=== PATIENT | male | born 1960 | race Caucasian/White ===

== ENCOUNTER 2017-09-26 05:45 | Day surgery (SDC) | payer SELFPAY ==
[2017-09-25 12:35] VITALS: BMI 31.1
--- NOTE | 2017-09-26 06:11 | HP ---
DATE OF SERVICE: 09/25/2017 SUBJECTIVE: Mr. Otoole is a pleasant gentleman who referred for hemoptysis and abnormal chest CT. His left hilar mass appears to have lymph nodes in his mediastinum and hilum. He is scheduled for bronchoscopy. Risks of bleeding, infection, lung collapse, likely were explained. He is not smoking or drinking at this time, but was up until the point where the hemoptysis started. PAST MEDICAL HISTORY: Unremarkable except for hypertension. He has taken no antihypertensives. SOCIAL HISTORY: She is currently not smoking or drinking. ALLERGIES: He denies having drug allergies. FAMILY HISTORY: Negative for lung disease at an early age. Positive for diabetes, hypertension, and cancer. REVIEW OF SYSTEMS: 10 point system reviewed otherwise negative. He denies weight loss. OBJECTIVE: VITAL SIGNS: His pulse 80, respiratory rate 18, his oximetry is 98. HEENT: Pupils are equal. Sclerae is anicteric. NECK: Supple along palpate any supraclavicular or cervical lymph nodes. He has very muscular neck. LUNGS: Remarkable for faint wheezes on the left. HEART: Regular rhythm. S1 and S2 are normal. ABDOMEN: Soft and nontender. EXTREMITIES: Without clubbing, cyanosis, or edema. CT of his chest and chest x-ray have been reviewed on disc films as well as reports from [facility] ([facility]). IMPRESSION: Left hilar mass, likely malignant. PLAN: Bronchoscopy with biopsies if feasible. 50 min spent on the patient at the bedside and or on the patient's floor. [facility]
[2017-09-26] MEDS ORDERED: Albuterol Sulfate 2.5 mg/3 ml Neb ONE (06:13)
[2017-09-26] MEDS ORDERED: Lidocaine 4% PF 5 ML AMP NEB SCH (06:30)
[2017-09-26] MEDS ORDERED: Sodium Chloride 0.9% 1,000 ML IV SCH (06:30)
[2017-09-26] MEDS ORDERED: Lidocaine 2% Jelly 5 ML TUBE ONE (06:49)
[2017-09-26] MEDS ORDERED: Midazolam HCl 2 mg/2 ml Vial ONE (07:30)
[2017-09-26] MEDS ORDERED: Fentanyl 100 MCG/2 ML VIAL ONE (07:30)
--- NOTE | 2017-09-26 11:57 | OP ---
PROCEDURE: Fiberoptic bronchoscopy. SEDATION: IV conscious sedation. [employer] SPECIAL AGENT: Nikko Ferguson M.D. INDICATION: Lung mass, hemoptysis. The patient was sedated with Versed 2 mg, followed by fentanyl, total 50 mcg. Once he was sedated, t he bronchoscope was introduced via his left naris, passed down to his cords. His cords moved normall y. His trachea was normal. The main bharti was wide. The right middle lobe, right lower lobe, right up per lobe were inspected first. No endobronchial lesions were seen. There was cobblestoning in the l eft, the left main stem bronchus into the left upper lobe, left lower lobe bronchus was patent, left upper lobe bronchus was remarkable for friable mass. This was brushed and biopsied multiple times an d washed. The patient tolerated the procedure well. Met with the family afterwards and answered all their questions and to follow up with me on Friday.
== END 2017-09-26 09:26 | disposition home or self-care (01) ==
LOC: SDC 05:45
PROVIDERS: ATTEND Internal Medicine Critical Care Medicine
PROC: 0BDG8ZX Extraction of Left Upper Lung Lobe, Via Natural or Artificial Opening Endoscopic, Diagnostic (ICD-10-PCS; principal; 2017-09-26)
DX: R91.8 Other nonspecific abnormal finding of lung field (principal); I10 Essential (primary) hypertension; Z79.2 Long term (current) use of antibiotics; Z79.891 Long term (current) use of opiate analgesic; Z79.899 Other long term (current) drug therapy
CPT/HCPCS: 88104; 88112; 88305; 88312; 99152; 99153; J2250; J3010; J7611

== ENCOUNTER 2017-10-02 12:45 | Inpatient (IN) | payer MEDICAID, OTHER, SELFPAY ==
[2017-10-02] MEDS ORDERED: Gadobenate Dimeglumine 529 MG/1 ML (20ML VIAL) ONE (13:09)
[2017-10-02] MEDS ORDERED: ALPRAZolam 0.5 MG TAB PO PRN (14:08)
[2017-10-02 14:17] VITALS: BMI 31.1
[2017-10-02 14:34] LABS: #Basophils 0.1 thou/uL (0.0-0.2); #Eosinphils 0.1 thou/uL (0.0-0.7); #Lymphocytes 2.6 thou/uL (1.20-3.40); #Neutrophils 8.2 thou/uL (1.40-6.50); %Basophils 0.6 % (0.0-1.0); %Eosinophils 1.1 % (0.0-10.0); %Lymphocytes 21.5 % (21.0-51.0); %Monocytes 8.4 % (0.0-10.0); %Neutrophils 68.4 % (42.0-75.0); Hemoglobin 9.9 g/dL (14.0-18.0); Mean Corpuscular HGB CONC 33.7 g/dL (32.0-36.0); Mean Corpuscular Hemoglobin 30.5 pg (27.0-31.0); Mean Corpuscular Volume 90.5 fl (80.0-94.0); Mean Platelet Volume 5.8 fL (7.4-10.4); Platelet Count 470 thou/uL (130-400); RBC Distribution Width 13.8 % (11.5-14.5); Red Blood Cell (RBC) Count 3.25 mill/uL (4.70-6.10)
[2017-10-02] MEDS: Sodium Chloride 0.45% 1,000 ML IV SCH (14:38)
[2017-10-02 14:57] LABS: ALT (SGPT) 15 U/L (8-55); AST (SGOT) 14 U/L (5-34); Albumin 3.8 g/dL (3.5-5.0); Alkaline Phosphatase 78 U/L (40-150); Anion Gap 12 mmol/L (10-20); BUN (Urea Nitrogen) 16 mg/dL (8.4-25.7); Bilirubin, Total 0.3 mg/dL (0.2-1.2); Calc. Creatinine Clearance 117 mL/min (70-130); Calcium 9.4 mg/dL (7.8-10.44); Carbon Dioxide 28 mmol/L (22-29); Chloride 103 mmol/L (98-107); Estimated GFR-MDRD 74; Globulin 3.9 g/dL (2.4-3.5); Glucose 79 mg/dL (70-105); Potassium 4.5 mmol/L (3.5-5.1); Protein, Total 7.7 g/dL (6.0-8.3); Sodium 138 mmol/L (136-145)
[2017-10-02] MEDS: fentaNYL 75 mcg/hour Patch TD SCH (15:33)
--- NOTE | 2017-10-02 15:50 | MRI ---
MRI BRAIN WITH AND WITHOUT IV CONTRAST: Date: 10/02/17 HISTORY: Newly diagnosed lung cancer. Exam requested to evaluate for brain metastasis. FINDINGS: There are a few foci of T2 prolongation in the periventricular white matter consistent with chronic s mall vessel ischemic disease. No restricted diffusion is seen. No evidence of infarct, hemorrhage, ma ss, midline shift, or abnormal extra-axial fluid collections are noted. Ventricular size is appropria te and the basilar cisterns are patent. No abnormal postcontrast enhancement is seen. There is mild m ucosal disease in the paranasal sinuses. IMPRESSION: No evidence of intracranial metastatic disease. POS: [facility]
--- NOTE | 2017-10-02 16:59 | CON ---
DATE OF CONSULTATION: 10/02/2017 REASON FOR CONSULTATION: Evaluate patient for mediastinoscopy. HISTORY OF PRESENT ILLNESS: Mr. Otoole is a very pleasant gentleman who has seen Dr. Ferguson for hemopty sis. He has had a CT scan showing left hilar lung mass. He has undergone bronchoscopy and biopsy, w hich was read as minute rare highly atypical cells, most compatible with malignancy. There was no wa y for them to do molecular stains on the small amount of tissue. I have been asked to see him to per form a mediastinoscopy for diagnosis. PAST MEDICAL HISTORY: None. PAST SURGICAL HISTORY: None. CURRENT MEDICATIONS: None. ALLERGIES: None. SOCIAL HISTORY: He recently stopped smoking. He is and is here with his . REVIEW OF SYSTEMS: Ten-point review of systems performed and is negative except as above. PHYSICAL EXAMINATION: GENERAL: This is a well-developed, well-nourished man, in no acute distress. VITAL SIGNS: His temperature is 97.3, pulse 92, blood pressure 151/80. LUNGS: Clear bilaterally. HEART: Rhythm is regular. NECK: Supple without adenopathy, that is palpable. ASSESSMENT AND PLAN: This is a pleasant 57-year-old gentleman with left hilar mass with malignant di agnosis, but not enough tissue to make further assessment. I have discussed mediastinoscopy with him . He has level 4 and level 7 bilateral adenopathy, which should be accessible via mediastinoscopy. Risks and benefits have been outlined, planned for tomorrow.
[2017-10-02] MEDS ORDERED: FLU VACC QS2017-18 36 mo. & older 0.5 ML SYRINGE IM ONE (21:00)
[2017-10-02] MEDS: ALPRAZolam 0.5 MG TAB PO SCH (22:13)
[2017-10-02] MEDS: Phenergan/Codeine 10-6.25mg/5ml UDCUP PO PRN (22:14)
--- NOTE | 2017-10-03 06:01 | HP ---
HISTORY OF PRESENT ILLNESS: Please refer to my last H and P. Briefly, Mr. Otoole is a pleasant 57-year-old male who never has been to a doctor. He recently developed hemoptysis; this failed to improve with antibiotics and so he was referred. He has hilar mass. He has a left upper lobe endobronchial lesion that was biopsied. Specimens were consistent with malignancy of lung primary, but the cell type could not be ascertained per my discussion with Dr. Bass. His called today stating that he was in pain, so he is subsequently being admitted for pain control and a metastatic workup. I am very very concerned that he may have skeletal metastasis and widely metastatic non-small cell lung cancer. If he has small cell lung cancer, we may need to start treatment immediately. PAST MEDICAL HISTORY: Unremarkable. SOCIAL HISTORY: He is a smoker until a month ago. He is a nondrinker. ALLERGIES: He has no drug allergies. MEDICATIONS: Prior to admission, Phenergan with Codeine and Xanax at bedtime. FAMILY HISTORY: Negative for lung disease at an early age. REVIEW OF SYSTEMS: Otherwise negative. PHYSICAL EXAMINATION: VITAL SIGNS: Afebrile, heart rate in the 90s, respiratory rate is 15, oximetry is 97 on room air, and blood pressure 150/70 in the office. HEENT: Pupils are equal. Sclerae is anicteric. Extraocular movements are full. NECK: Supple. No lymphadenopathy. LUNGS: Clear. HEART: Regular rhythm. S1 and S2 are normal. ABDOMEN: Soft and nontender. EXTREMITIES: Without asymmetry. CT shows mediastinal lymphadenopathy. PLAN: 1. I have recommended CME. 2. MRI with and without contrast. 3. Bone scan. 4. Morphine and fentanyl for pain control. This is a 70-minute consult, greater than 50% of the time was spent on the unit in coordinating care. FRANCISCO JAVIER
[2017-10-03] MEDS ORDERED: Midazolam HCl 2 mg/2 ml Vial ONE (07:01)
[2017-10-03] MEDS ORDERED: Fentanyl 100 MCG/2 ML VIAL ONE ×2 (07:01→09:34)
[2017-10-03] MEDS ORDERED: CEFAZOLIN/Water 2 GM/20 ML SYRINGE ONE (08:19)
[2017-10-03] MEDS ORDERED: CEFAZOLIN/Water 2 GM/20 ML SYRINGE SLOW IVP SCH (09:00)
[2017-10-03] MEDS ORDERED: Promethazine HCl 25 MG/ML VIAL IM PRN (11:01)
[2017-10-03] MEDS ORDERED: Promethazine HCl 25 MG/ML VIAL SLOW IVP PRN (11:01)
[2017-10-03] MEDS ORDERED: Ondansetron HCl/PF 4 MG/2 ML Vial IVP PRN (11:01)
--- NOTE | 2017-10-03 11:48 | OP ---
DATE OF PROCEDURE: 10/03/2017 PREOPERATIVE DIAGNOSIS: Left hilar mass with mediastinal adenopathy. POSTOPERATIVE DIAGNOSIS: Left hilar mass with mediastinal adenopathy. PROCEDURE: Cervical mediastinoscopy with biopsy of hilar mass. SURGEON: Peña Delatorre M.D. ANESTHESIA: General endotracheal. ESTIMATED BLOOD LOSS: Less than 50. DESCRIPTION OF PROCEDURE: After consent was obtained, the patient was brought to the operating room and placed in the supine position on the operating room table. Appropriate anesthetic monitor was pl aced and general endotracheal anesthesia induced. Neck was extended and joints appropriately padded. The neck was prepped and draped in usual sterile fashion. Skin incision was made two fingerbreadth s above the sternal notch within a skin crease. Dissection through the platysma was obtained with el ectrocautery. Strap muscles were split vertically. Anterior tracheal fascia was incised. Finger di ssection was used to enter the mediastinum and a hard mass was encountered at the tip of my finger. The mediastinoscope was inserted and multiple biopsies of the mass were taken and sent for a routine pathologic exam. Hemostasis was ensured. Wounds were then closed in layers and Dermabond applied to the skin. The patient was awakened, extubated, and transferred to recovery room in stable condition .
[2017-10-03] MEDS: ALPRAZolam 0.5 MG TAB PO SCH ×3 (11:59→20:42)
[2017-10-03] MEDS: Enoxaparin Sodium 40 MG/0.4 ML SYRINGE SC SCH (12:01)
--- NOTE | 2017-10-03 12:49 | PRG ---
DATE OF SERVICE: 10/03/2017 Mr. Otoole was examined in the recovery room. PHYSICAL EXAMINATION: VITAL SIGNS: He has been afebrile overnight, his heart rates is in the 80s, respiratory rate 18, his oximetry is 96 on room air this morning. In the recovery room, he is on a cannula postop. LUNGS: His lungs are clear. He still groggy. Yesterday, his hemoglobin was 9.9. Hopefully this is not indicative of bone marrow infiltration with small cell cancer. I will repeat a CBC in the morning. IMPRESSION: 1. Left hilar mass with mediastinal extension malignant by bronchial biopsies, but cell type could n ot be classified. 2. Status post mediastinoscopy with good tissue obtained today. 3. Anemia, ? bone marrow infiltration with small cell lung cancer. We will await pathology. 4. Pain? bone mets, a bone scan has been ordered. He is stable to go back to a medical bed. He will be in the hospital for several more days, hopefull y we will have a tissue diagnosis by Friday.
[2017-10-03] MEDS: Sodium Chloride 0.45% 1,000 ML IV SCH (13:09)
[2017-10-03] MEDS ORDERED: Esmolol 100 MG/10 ML VIAL ONE (14:24)
[2017-10-03] MEDS ORDERED: PROPOFOL 200 MG/20 ML VIAL ONE (14:24)
[2017-10-03] MEDS ORDERED: Glycopyrrolate 0.2 MG/ML 5 ML SYRINGE ONE (14:24)
[2017-10-03] MEDS ORDERED: Lidocaine 1% PF 5 ML VIAL ONE (14:24)
[2017-10-03] MEDS: Phenergan/Codeine 10-6.25mg/5ml UDCUP PO PRN ×2 (15:15→20:42)
--- NOTE | 2017-10-03 18:53 | NM ---
BONE SCAN 10/03/16 HISTORY: Lung cancer. Evaluate for metastatic disease. TECHNIQUE: A whole body bone scan was performed after administration of 29 millicuries of technetium 99m MDP. FINDINGS: There is linear uptake along the lateral aspect of the distal femur. This is nonspecific. There is up take in the manubrium and there is uptake in two adjacent right lateral ribs in a segmental fashion. The rib uptake may be secondary to rib fractures. Soft tissue activity is unremarkable. Uptake in the shoulders and knees is likely secondary to degene rative change. IMPRESSION: 1. There is abnormal uptake in the manubrium. A CT of the chest is recommended for further evalu ation. The abnormal uptake in the ribs is likely secondary to right rib fractures. 2. There is abnormal uptake in the distal right femur. Recommend correlation with radiographs of the right femur. POS: [facility]
[2017-10-04] MEDS: Phenergan/Codeine 10-6.25mg/5ml UDCUP PO PRN ×2 (05:22→14:07)
[2017-10-04 05:31] LABS: Band 2 % (5-11); Lymphocytes 7 % (21-51); MDiff Complete? YES; Mean Corpuscular Volume 90.5 fl (80.0-94.0); Mean Platelet Volume 6.1 fL (7.4-10.4); Monocytes 1 % (0-10); Neutrophil 90 % (42-75); Platelet Count 480 thou/uL (130-400); RBC Distribution Width 13.8 % (11.5-14.5); White Blood Cell (WBC) Count 16.7 thou/uL (4.8-10.8)
[2017-10-04] MEDS: ALPRAZolam 0.5 MG TAB PO SCH ×3 (09:15→20:15)
[2017-10-04] MEDS: Enoxaparin Sodium 40 MG/0.4 ML SYRINGE SC SCH (09:15)
[2017-10-04] MEDS: Sodium Chloride 0.45% 1,000 ML IV SCH (14:26)
[2017-10-04] MEDS: Morphine 5 MG/ML SYRINGE SLOW IVP PRN ×2 (14:46→16:57)
--- NOTE | 2017-10-04 18:17 | RAD ---
TWO VIEWS OF THE CHEST 10/04/17 COMPARISON: None. HISTORY: Sharp right sided chest pain. FINDINGS: Two views of the chest show normal sized cardiomediastinal silhouette. Consolidation is seen in left upper lobe consistent with pneumonia. No pleural effusion is seen. No right sided infiltrates are pre sent. IMPRESSION: Left upper lobe pneumonia. POS: [facility]
[2017-10-04] MEDS ORDERED: Fentanyl 100 MCG/2 ML VIAL SLOW IVP PRN (19:02)
[2017-10-04] MEDS ORDERED: Lidocaine 5% Patch TD SCH (19:15)
[2017-10-04] MEDS: Amoxicillin/Potassium Clav 875 MG TAB PO SCH (20:15)
--- NOTE | 2017-10-04 21:12 | PRG ---
DATE OF SERVICE: 10/04/2017 SERVICE: Pulmonary Medicine. INTERVAL HISTORY: The patient is having severe right-sided chest wall discomfort. He can put his fi nger on where the spot is that hurts him. It sometimes feels a little bit better if he splints again st the arm on that spot. He denies any current fevers, chills, nausea or vomiting. Other than this, there has been no interval change to his condition. It seemed to start shortly after he had a showe r today. That being said, it has been throughout the course of the day without relenting. He is on a fentanyl patch 150 mcg daily. He got in a p.r.n. dose of morphine. He is also taking some Phenerg an with codeine cough suppressant. Despite these interventions, nothing has really improved this dis comfort. PHYSICAL EXAMINATION: VITAL SIGNS: Afebrile, pulse 86, blood pressure 154/79, respirations 16, saturation 91% on room air. GENERAL: Patient is awake, alert, in no apparent distress. LUNGS: Decent air entry. There is no prolonged expiratory phase. I do not hear a friction, rub on that spot. HEART: Normal rate, regular. ABDOMEN: Soft, nontender, nondistended. Bowel sounds are positive. MUSCULOSKELETAL: No cyanosis or clubbing. No pitting in the bilateral lower extremities. NEUROLOGIC: Grossly nonfocal. LABORATORY DATA: WBC 16.7 and uptrending, hemoglobin 9.0. Platelets 480,000. Basic metabolic profi le, liver function studies are otherwise unremarkable. IMAGING: Chest x-ray demonstrates left upper lobe pneumonia. There is nothing of interest in the ar ea of discomfort in the right chest wall. ASSESSMENT: 1. Lung cancer, suspected. 2. Intractable chest wall pain, not in the area of known metastases. PLAN: Pathology is currently pending. For the possible infiltrate, which likely represents the atel ectasis of the left upper lobe associated with this lung mass, I will go ahead and empirically start him on some antibiotics. This is because is white blood cell count is fairly elevated. Additionall y, he is having increasing discomfort there. I will put Lidoderm patch on the area of interest. If this is not effective at controlling the patient's pain, a pain consultation will be placed. Pulmona ry Critical Care will continue to follow while the patient remains in this location.
[2017-10-05] MEDS: Sodium Chloride 0.45% 1,000 ML IV SCH ×2 (03:18→15:29)
[2017-10-05] MEDS: Phenergan/Codeine 10-6.25mg/5ml UDCUP PO PRN ×3 (05:26→19:30)
[2017-10-05] MEDS: Enoxaparin Sodium 40 MG/0.4 ML SYRINGE SC SCH (08:36)
[2017-10-05] MEDS: Amoxicillin/Potassium Clav 875 MG TAB PO SCH ×2 (08:37→19:29)
[2017-10-05] MEDS: ALPRAZolam 0.5 MG TAB PO SCH ×2 (08:37→13:49)
[2017-10-05] MEDS ORDERED: Lidocaine 5% Patch TD SCH (09:00)
[2017-10-05] MEDS: fentaNYL 75 mcg/hour Patch TD SCH (13:50)
[2017-10-05] MEDS ORDERED: Naloxone HCl 0.4 mg/ml Vial IV PRN (15:19)
[2017-10-05] MEDS ORDERED: fentaNYL Citrate/PF 2,000 MCG in Sodium Chloride 0.9% 60 ML IV PRN (15:30)
[2017-10-05] MEDS ORDERED: predniSONE 20 MG TAB PO SCH (18:45)
--- NOTE | 2017-10-05 19:15 | PRG ---
DATE OF SERVICE: 10/05/2017 SERVICE: Pulmonary Medicine. INTERVAL HISTORY: The patient is doing okay. Today his pain is under better control, but is complet sarita somnolent. I walked in to his room and gently woke him up. He does wake up after 10 seconds wit h no stimulation, he drifts back off to sleep. Fentanyl patches have been discontinued and they have been replaced by HRIS COORDINATOR. He indicates that his pain is under decent control now. That being said, he is starting to wheeze a little bit more. He demonstrates sleep apnea. PHYSICAL EXAMINATION: VITAL SIGNS: Afebrile, pulse 99, blood pressure 160/84, respirations 16, saturation 95% on room air. GENERAL: Patient is awake and alert, in no apparent distress. LUNGS: Decent air entry. Prolonged expiratory phase and wheezing are both present. No crackles or rhonchi are appreciated. HEART: Normal rate and regular. ABDOMEN: Soft, nontender, nondistended. Bowel sounds are positive. MUSCULOSKELETAL: No cyanosis or clubbing. No pitting in the bilateral lower extremities. NEUROLOGIC: Grossly nonfocal. LABORATORY DATA: WBC 16.7, hemoglobin 9.0, platelets 480,000. IMAGING: Chest x-ray demonstrates left upper lobe changes with no evidence of identifying cause of h is right-sided discomfort. This is not a rib series. ASSESSMENT: 1. Lung cancer, suspected status post mediastinoscopy. 2. Intractable right chest wall pain, not in an area of known metastasis. 3. Acute bronchitis. PLAN: The patient is wheezing a little bit more today, so I will treat him for an acute bronchitis. I will give him some nebulized medications and steroids. We will continue the antibiotics and I andriy l repeat laboratories tomorrow morning. For his chronic pain, anesthesia is currently controlling so me of his pain medications. Pulmonary and Critical Care will continue to follow up, but Dr. Ferguson wi ll assume care in the morning.
[2017-10-05] MEDS ORDERED: Lidocaine Patch Removal TOP SCH (21:00)
[2017-10-06] MEDS: Phenergan/Codeine 10-6.25mg/5ml UDCUP PO PRN ×4 (00:14→21:00)
[2017-10-06] MEDS: Amoxicillin/Potassium Clav 875 MG TAB PO SCH ×2 (09:52→20:57)
[2017-10-06] MEDS: Enoxaparin Sodium 40 MG/0.4 ML SYRINGE SC SCH (09:53)
[2017-10-06] MEDS: predniSONE 20 MG TAB PO SCH (09:53)
[2017-10-06] MEDS ORDERED: traMADol HCl 50 MG TAB PO PRN ×2 (10:07)
[2017-10-06] MEDS ORDERED: Ibuprofen 600 MG TAB PO PRN (10:08)
[2017-10-06] MEDS ORDERED: Bisacodyl 5 MG TAB PO PRN (10:48)
[2017-10-06] MEDS ORDERED: Polyethylene Glycol 3350 17 GM Packet PO SCH (11:30)
--- NOTE | 2017-10-06 13:08 | CON ---
DATE OF CONSULTATION: 10/06/2017 REASON FOR CONSULTATION: Lung cancer. HISTORY OF PRESENT ILLNESS: Mr. Otoole is a 57-year-old male who began to have hemoptysis ar ound [place]. He sought treatment and was noted to have a left hilar mass. It was biopsied for b ronchoscopy and unfortunately was nondiagnostic. He was admitted. He followed up with Dr. Ferguson in the outpatient setting and had significant pain in his chest and right rib. He was admitted for pain control and further workup. He had a CME by Dr. Delatorre on Friday. Pathology is currently pending. He complains of right rib pain and constipation. PAST MEDICAL HISTORY: Loss of hearing, improved with hearing aids. PAST SURGICAL HISTORY: None. CURRENT MEDICATIONS: None. ALLERGIES: No known drug allergies. FAMILY HISTORY: Positive for unknown cancer. SOCIAL HISTORY: He is . He stopped smoking 1 month ago. Social alcohol use, no illicit drug use. REVIEW OF SYSTEMS: CONSTITUTIONAL: Denies fever, chills, night sweats. No weight loss. EYES: No blurred or double vision. ENT: No pain, hoarseness, sore throat, or dysphagia. CARDIOVASCULAR: Positive for sternal pain. No palpitations or syncope. RESPIRATORY: Positive for no shortness of breath, dyspnea on exertion or orthopnea. GI: No nausea, vomiting, diarrhea. Positive for constipation and abdominal pain. GENITOURINARY: No dysuria or hematuria. MUSCULOSKELETAL: Positive for right rib pain and sternal pain. SKIN: No rash or pruritus. HEMATOLOGIC: No bleeding, bruising or clotting. NEUROLOGIC: Positive for weakness, no headache, numbness, tingling or seizure activity. PSYCHIATRIC: No anxiety or depression. PHYSICAL EXAMINATION: VITAL SIGNS: Temperature is 98.8, pulse is 105, respiratory rate is 20, BP is 159/72, he is 92% on r oom air. GENERAL: Well-developed, well-nourished male in no acute distress. HEENT: Normocephalic, atraumatic. Pupils equal and reactive to light. He has poor dentition. NECK: Supple. HEART: Regular rate and rhythm. LUNGS: Diminished in the left upper lobe. ABDOMEN: Soft, nontender, bowel sounds are positive. EXTREMITIES: No clubbing, cyanosis or edema. SKIN: No rash. HEMATOLOGIC: No petechia or purpura. NEUROLOGICAL: Nonfocal. PSYCHIATRIC: The patient is alert and oriented and appropriate. PERTINENT LABORATORY AND X-RAYS: Current WBCs are 16.7, hemoglobin is 9, hematocrit 28, platelet cou nt is 480,000, 90% neutrophils, 2% lymphocytes. Sodium 138, potassium 4.5, chloride 103, CO2 is 28, BUN is 16, creatinine 1.03, calcium 9.4, total bilirubin is 0.3, AST is 14, ALT is 15, alkaline phosp hatase is 78, serum total protein is 7.7, albumin 3.8, globulin 3.9. Brain MRI was negative for metastatic lesions. His bone scan showed abnormal uptake in the manubrium , right ribs and the distal right femur. ASSESSMENT AND PLAN: 1. Lung cancer with bone metastasis. 2. Intractable pain secondary to #1. 3. Constipation secondary to narcotic pain medication. DISCUSSION: The case was discussed with Dr. Ferguson. We will await final path for recommendation of t reatment plan. The patient's pain is managed with a fentanyl EXPANDED DUTY DENTAL ASSISTANT pump. He has not had a bowel movem ent in 5 days. We will begin a bowel regimen at this time. Depending on his pathology, if it is sma ll cell he will likely receive his first dose of chemotherapy as an inpatient. If it is adenocarcino ma, we will await tissue mutation for treatment options and he could follow up in the outpatient sett ing. Thank you for the consult.
--- NOTE | 2017-10-06 14:53 | RAD ---
RIGHT FEMUR TWO VIEWS: HISTORY: A 57-year-old male with a history of an abnormal bone scan. COMPARISON: Prior bone scan from 10/03/2017. FINDINGS: There is a focal, near full-thickness, lytic, cortical defect, measuring approximately 0.9 cm in cran iocaudal length, involving the lateral aspect of the distal femoral shaft. Extending from this focal lytic defect, caudally, there is some heterogeneous endosteal scalloping extending over another 4 to 5 cm, as well as two somewhat nodular areas of focal increased bone density involving the lateral fe moral metadiaphysis. These areas of abnormality do correspond to the extensive, elongated area of in creased activity on the prior bone scan. No evidence for associated fracture. IMPRESSION: Circumscribed, near full-thickness, lytic, cortical defect, measuring 0.9 cm, involving the lateral a spect of the femoral diaphysis, very suspicious for a metastasis. In addition, there is a 4 to 5 cm length area of heterogeneous endosteal scalloping extending caudal to this circumscribed bone lesion, which could represent some neoplastic extension or could possibly be related to some prominent nonma lignant endosteal scalloping from reaction. Depending on concern, a follow-up MRI study might allow somewhat more complete evaluation, as to the overall extent of malignant disease. No evidence for a pathologic fracture. POS: [facility]
--- NOTE | 2017-10-06 19:47 | PRG ---
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 The immuno studies obviously, are still pending. Reviewed bone scan again and there are abnormalities in ribs, manubrium, and the femur. I have ordered plain film of his femur today. He has a metastatic defect visible on his femur film. Surprisingly, his main complaint is his ribs. I suspect his ribs, his sternum, and his femur are me tastatic disease. He had a pain pump started, but it has no basal rate, surprisingly the tramadol seems to be controlli ng his pain. He will need to get radiation oncology involved with the femur and Orthopedic Surgery. I just gave t he family results of the mediastinal lymph node biopsy. I have not discussed the femur findings. I am going to plan to discuss with them in the morning to have orthopedic surgery comes to see him.
[2017-10-06] MEDS: Docusate 100 MG CAP PO SCH (20:57)
[2017-10-07] MEDS: Phenergan/Codeine 10-6.25mg/5ml UDCUP PO PRN ×3 (05:33→17:37)
[2017-10-07] MEDS: Polyethylene Glycol 3350 17 GM Packet PO SCH (09:20)
[2017-10-07] MEDS: Amoxicillin/Potassium Clav 875 MG TAB PO SCH ×2 (09:21→20:06)
[2017-10-07] MEDS: Enoxaparin Sodium 40 MG/0.4 ML SYRINGE SC SCH (09:21)
[2017-10-07] MEDS: Docusate 100 MG CAP PO SCH ×2 (09:21→20:06)
[2017-10-07] MEDS: predniSONE 20 MG TAB PO SCH (09:21)
[2017-10-07] MEDS ORDERED: Fentanyl 100 MCG/2 ML VIAL SLOW IVP PRN (12:16)
[2017-10-07] MEDS ORDERED: HYDROcodone/Acetaminophen 5/325 mg Tablet PO PRN (12:16)
--- NOTE | 2017-10-07 19:44 | PRG ---
DATE OF SERVICE: 10/07/2017 SUBJECTIVE: Beatrice Otoole's pain seems to be well controlled. I had concerns about his femur lesion. I discussed this with Orthopedic Surgery and they agreed to see him today. Final recommendation is that we just watch this for now and see how he does want treatment started. He is not in imminent da nger of fracture per orthopedics' input. OBJECTIVE: LUNGS: Clear. HEART: Regular rhythm. ABDOMEN: Soft. ASSESSMENT AND PLAN: Hopefully, plan on discharging him in the morning.
[2017-10-07] MEDS: HYDROcodone/Acetaminophen 5/325 mg Tablet PO PRN (20:06)
--- NOTE | 2017-10-08 01:09 | CON ---
DATE OF CONSULTATION: 10/07/2017 REQUESTING PHYSICIAN: Dr. Nikko Ferguson. BRIEF HISTORY OF PRESENT ILLNESS: Mr. Otoole is a very pleasant 57-year-old gentleman who was initiall y referred to Dr. Ferguson on 09/25/2017 with a history of hemoptysis and an abnormal chest CT that show ed a left hilar mass. Patient subsequently had an endobronchial lesion biopsied and these have come back consistent for primary lung malignancy. Further workup included a bone scan, which showed exten sive involvement of his ribs and a lesion of the distal femur. A follow up x-ray of the right femur was obtained and this shows a mixed lytic and blastic lesion of the distal femoral diaphysis extendin g into the metaphyseal region. Given this finding, orthopedic consultation was requested. The patie nt denies any thigh pain. He does have rib pain from his presumed metastatic disease, but does not r eport any thigh pain at rest or with weightbearing. PAST MEDICAL HISTORY: Remarkable for hypertension. PAST SURGICAL HISTORY: Includes his recent bronchoscopy and biopsy. MEDICATIONS: As an outpatient included Phenergan with codeine as well as Xanax. ALLERGIES: None known. FAMILY HISTORY: Noncontributory. REVIEW OF SYSTEMS: Denies recent fevers, chills, or sweats. He does report chest pain and this is i nvolving the chest wall as stated in the history of present illness. Denies numbness or tingling in the extremities. PHYSICAL EXAMINATION: The patient is just briefly examined in a bedside chair. I will refer you to the history and physical from Dr. Nikko Ferguson regarding his full exam. The right lower extremity is remarkable for no mass. He does not have a knee effusion. He is found to have supple range of tommy on of his knee with no pain in the thigh. Distal neurovascular exam is intact. X-RAYS: Two-view of the right femur was obtained and is remarkable for a small lytic lesion at the j unction of the distal diaphysis and metaphysis with some sclerotic lesions extending further distally from this lytic lesion. There does not appear to be any type of pathologic fracture at this time an d I think at this time, the risk for obvious pathologic fracture is somewhat low, given the small siz e of this lytic lesion. ASSESSMENT: A 57-year-old gentleman with probable metastatic lung cancer with mixed lytic and sclero tic lesion of the distal femur. PLAN: Today, I had a thorough discussion with patient regarding this some finding. Given that he is completely asymptomatic with respect to the right lower extremity. I believe that we can watch him expectantly at this time. We did discuss the potential benefits of prophylactic nailing to try and p revent pathologic fracture. However, given the size of the lesion at this time, I do not believe kevon t this procedure is urgent. As such, we will follow this gentleman expectantly. I would recommend a followup x-ray in 2 to 3 months to follow the progress of the lesion. I have also discussed with edd felix that should he experience any distal femur pain or any other pain in his extremities that he co ntact Dr. Ferguson on an urgent basis or contact my office, so we can formally evaluate the patient and hopefully prevent an impending pathologic fracture. The patient appears comfortable with this discus chrystal and plan. I will follow the patient expectantly at Dr. Ferguson's discretion.
[2017-10-08] MEDS: HYDROcodone/Acetaminophen 5/325 mg Tablet PO PRN ×2 (02:44→08:27)
[2017-10-08] MEDS: Phenergan/Codeine 10-6.25mg/5ml UDCUP PO PRN (02:44)
[2017-10-08] MEDS: Amoxicillin/Potassium Clav 875 MG TAB PO SCH (08:18)
[2017-10-08] MEDS: Docusate 100 MG CAP PO SCH (08:18)
[2017-10-08] MEDS: Polyethylene Glycol 3350 17 GM Packet PO SCH (08:18)
[2017-10-08] MEDS: predniSONE 20 MG TAB PO SCH (08:18)
[2017-10-08] MEDS: Enoxaparin Sodium 40 MG/0.4 ML SYRINGE SC SCH (08:19)
[2017-10-08 11:53] VITALS: BP 134/83; TEMP 97.3
--- NOTE | 2017-10-09 06:08 | DIS ---
DISCHARGE DIAGNOSES: 1. Metastatic squamous cell carcinoma of the lung. 2. Status post mediastinoscopy. 3. Status post bone scan showing ribs, manubrium, and right femur uptake. Right femur film shows a lesion that does not need rodding yet. This will be followed by Orthopedic Surgery. 4. History of smoking with no clinical evidence of obstructive lung disease. Please see history and physical. Briefly, Mr. Otoole called with intractable pain. I was worried that he might have metastatic disease. We had a diagnosis of cancer, but not a cell type. He was admitted and started on pain meds. He a ctually hallucinated on fentanyl and Tylenol No. 3. He switched to Ultram in a pain pump. He used t he pain pump rarely. Ultram seemed to control most of his symptoms. He has been stable. Orthopedic surgery saw him yesterday and felt no surgery was indicated. He was discharged to home in stable co ndition today. Prescription for Ultram 50 mg q.i.d. p.r.n. was called in with 3 refills. He is sche duled to follow up with the oncologist next week.
== END 2017-10-08 13:14 | disposition home or self-care (01) | DRG 948 ==
LOC: T4-B 12:45
PROVIDERS: ADMIT Internal Medicine Critical Care Medicine; ATTEND Internal Medicine Critical Care Medicine
PROC: 0WBC4ZX Excision of Mediastinum, Percutaneous Endoscopic Approach, Diagnostic (ICD-10-PCS; principal; 2017-10-03)
DX: G89.3 Neoplasm related pain (acute) (chronic) (principal); C78.1 Secondary malignant neoplasm of mediastinum; C79.51 Secondary malignant neoplasm of bone; C34.12 Malignant neoplasm of upper lobe, left bronchus or lung; R44.3 Hallucinations, unspecified; J20.9 Acute bronchitis, unspecified; K59.03 Drug induced constipation; Z87.891 Personal history of nicotine dependence; T40.4X5A Adverse effect of other synthetic narcotics, initial encounter; T40.2X5A Adverse effect of other opioids, initial encounter; Y92.239 Unspecified place in hospital as the place of occurrence of the external cause
CPT/HCPCS: 36415; 70553; 71046; 78306; 80053; 85007; 85025; 85027; 88305; 88341; 88342; 90471; 90682; 94640; J2270; A4216; A9503; A9579; G0008; J1650; J2001; J2250; J2704; J2920; J3010; J7050; J7506; J7620; Q2036

== ENCOUNTER 2017-10-27 21:24 | Inpatient (IN) | payer SELFPAY ==
[2017-10-27 21:59] LABS: #Eosinphils 0.1 thou/uL (0.0-0.7); #Lymphocytes 2.1 thou/uL (1.20-3.40); #Monocytes 1.6 thou/uL (0.11-0.59); %Basophils 0.1 % (0.0-1.0); %Lymphocytes 15.5 % (21.0-51.0); %Monocytes 11.2 % (0.0-10.0); %Neutrophils 72.2 % (42.0-75.0); Hemoglobin 10.8 g/dL (14.0-18.0); Mean Corpuscular HGB CONC 30.6 g/dL (32.0-36.0); Mean Corpuscular Hemoglobin 26.5 pg (27.0-31.0); Mean Corpuscular Volume 86.8 fl (80.0-94.0); Mean Platelet Volume 5.8 fL (7.4-10.4); Platelet Count 641 thou/uL (130-400); RBC Distribution Width 15.4 % (11.5-14.5); Red Blood Cell (RBC) Count 4.08 mill/uL (4.70-6.10); White Blood Cell (WBC) Count 13.9 thou/uL (4.8-10.8)
[2017-10-27 22:04] LABS: Base Excess-Venous 4.6 mmol/L (-30.0-30.0); Bicarbonate (HCO3v) 29.1 mmol/L (1.0-85.0); CO2 Tension (PvCO2) 41.6 mmHg (41.0-51.0); Calcium, Ionized 1.58 mmol/L (1.12-1.32); Hemoglobin - Calc 11.7 g/dL (12.0-18.0); O2 Tension (PvO2) 89.9 mmHg (35.0-45.0); Potassium 4.4 mmol/L (3.4-4.7); T. Carbon Dioxide 30.3 mmol/L (1.0-85.0); pH (Venous) 7.453 (7.35-7.45); vO2 Saturation-calc 97.3 % (0.0-100.0)
--- NOTE | 2017-10-27 22:07 | RAD ---
CHEST ONE VIEW: History: Cough. Comparison: 10-11-17 FINDINGS: Cardiac silhouette is predominately obscured by left pleural fluid that has redistributed slightly si nce the previous exam. Pulmonary vasculature is now more engorged. Mediastinum remains midline. No ev idence of pneumothorax. IMPRESSION: 1. Interval increase in pulmonary vascular congestion. 2. Left pleural fluid has re-distributed but is favored to be similar in volume to the most recent ra diograph. POS: KIYA
[2017-10-27 22:20] LABS: ALT (SGPT) 21 U/L (8-55); AST (SGOT) 24 U/L (5-34); Albumin 3.2 g/dL (3.5-5.0); Alkaline Phosphatase 107 U/L (40-150); Anion Gap 18 mmol/L (10-20); BUN (Urea Nitrogen) 20 mg/dL (8.4-25.7); Bilirubin, Total 0.3 mg/dL (0.2-1.2); Calc. Creatinine Clearance 0 mL/min (70-130); Carbon Dioxide 27 mmol/L (22-29); Chloride 99 mmol/L (98-107); Estimated GFR-MDRD 69; Globulin 4.1 g/dL (2.4-3.5); Glucose 109 mg/dL (70-105); Potassium 4.2 mmol/L (3.5-5.1); Protein, Total 7.3 g/dL (6.0-8.3); Sodium 140 mmol/L (136-145)
[2017-10-27 22:26] LABS: Calcium 13.2 mg/dL (7.8-10.44)
[2017-10-27] MEDS ORDERED: traMADol HCl 50 MG TAB ONE (22:39)
[2017-10-27] MEDS ORDERED: Ibuprofen 200 MG TAB ONE (22:39)
[2017-10-27 22:51] LABS: Bilirubin Negative (Negative); Blood, Urine Negative (Negative); Clarity CLEAR (Clear); Glucose, Urine (Dipstick) Negative (Negative); Leukocyte Negative (Negative); Nitrite Negative (Negative); Protein, Urine (Dipstick) Negative (Neg-Trace); Specific Gravity, Urine 1.019 (1.002-1.036); Urobilinogen 0.2 mg/dL (0.2-1.0); pH, Urine 5.5 (5.0-9.0)
[2017-10-28] MEDS ORDERED: Albuterol Sulfate 2.5 mg/3 ml Neb NEB PRN (00:01)
[2017-10-28] MEDS ORDERED: Milk Of Magnesia 30 ML UDCUP PO PRN (00:02)
[2017-10-28] MEDS ORDERED: Ondansetron HCl/PF 4 MG/2 ML Vial IVP PRN (00:02)
[2017-10-28] MEDS ORDERED: Fleet Enema 133 ML BOT PR PRN (00:02)
[2017-10-28] MEDS ORDERED: Acetaminophen 325 MG TAB PO PRN (00:02)
[2017-10-28] MEDS ORDERED: guaiFENesin 200 MG TAB PO PRN (00:05)
[2017-10-28] MEDS: Sodium Chloride 0.9% 1,000 ML IV SCH ×3 (02:50→22:59)
[2017-10-28 03:11] VITALS: BMI 28.2
[2017-10-28 05:36] LABS: #Basophils 0.1 thou/uL (0.0-0.2); #Eosinphils 0.2 thou/uL (0.0-0.7); #Lymphocytes 2.2 thou/uL (1.20-3.40); #Monocytes 1.4 thou/uL (0.11-0.59); #Neutrophils 7.2 thou/uL (1.40-6.50); %Basophils 0.6 % (0.0-1.0); %Neutrophils 64.5 % (42.0-75.0); Hemoglobin 9.4 g/dL (14.0-18.0); Mean Corpuscular HGB CONC 30.5 g/dL (32.0-36.0); Mean Corpuscular Hemoglobin 26.5 pg (27.0-31.0); Mean Corpuscular Volume 86.8 fl (80.0-94.0); Mean Platelet Volume 5.7 fL (7.4-10.4); Platelet Count 554 thou/uL (130-400); RBC Distribution Width 15.3 % (11.5-14.5); Red Blood Cell (RBC) Count 3.54 mill/uL (4.70-6.10); White Blood Cell (WBC) Count 11.1 thou/uL (4.8-10.8)
[2017-10-28 05:51] LABS: Anion Gap 13 mmol/L (10-20); BUN (Urea Nitrogen) 21 mg/dL (8.4-25.7); Calc. Creatinine Clearance 110 mL/min (70-130); Carbon Dioxide 30 mmol/L (22-29); Chloride 101 mmol/L (98-107); Estimated GFR-MDRD 78; Glucose 94 mg/dL (70-105); Potassium 3.8 mmol/L (3.5-5.1); Sodium 140 mmol/L (136-145)
[2017-10-28 06:05] LABS: Calcium 12.5 mg/dL (7.8-10.44)
[2017-10-28] MEDS ORDERED: ALPRAZolam 0.25 MG TAB PO PRN (06:45)
[2017-10-28] MEDS ORDERED: Benzonatate 100 MG CAP PO PRN (06:45)
[2017-10-28] MEDS ORDERED: Loperamide HCl 2 MG CAP PO PRN (06:46)
[2017-10-28] MEDS ORDERED: Loratadine 10 MG TAB PO PRN (06:46)
[2017-10-28] MEDS ORDERED: Chloraseptic Spray 180 ml Bottle PO PRN (06:46)
[2017-10-28] MEDS ORDERED: Artificial Tears 18 DROP/0.9 ML EA EYE PRN (06:46)
[2017-10-28] MEDS ORDERED: Eucerin (Mineral Oil/Petrolatum,White) 30 gm Jar TOP PRN (06:46)
[2017-10-28] MEDS ORDERED: Sodium Chloride 0.65% Nasal 44 ML BOT EA NARE PRN (06:46)
[2017-10-28] MEDS ORDERED: Ibuprofen 600 MG TAB PO PRN (07:00)
[2017-10-28] MEDS ORDERED: Albuterol Sulfate 1.25 MG/3 ML NEB NEB SCH (07:00)
[2017-10-28] MEDS: Docusate 100 MG CAP PO SCH ×2 (08:38→20:02)
[2017-10-28] MEDS: Phenergan/Codeine 10-6.25mg/5ml UDCUP PO SCH ×4 (08:39→20:03)
[2017-10-28] MEDS: Enoxaparin Sodium 40 MG/0.4 ML SYRINGE SC SCH (08:39)
[2017-10-28] MEDS ORDERED: Non-Formulary Item 1 EACH (Promethazine Hcl/Codeine [Prometh-Codein 6.25-10 Mg/5 Ml] 5 ML PO SCH (09:00)
[2017-10-28] MEDS ORDERED: Famotidine/PF 20 mg/2ml Vial SLOW IVP SCH (09:00)
--- NOTE | 2017-10-28 10:36 | HP ---
PRIMARY CARE PHYSICIAN: Maxine Gaytan M.D. REASON FOR ADMISSION: Dyspnea. HISTORY OF PRESENT ILLNESS: A 57-year-old male who was recently diagnosed with metastatic squamous c ell carcinoma of the lung. He came to emergency room for evaluation of shortness of breath. Patient was experiencing cough and hemoptysis early this year. Patient was presumably treated with a ntibiotic therapy at local hospital without any significant improvement. Patient's chest x-ray was n ot improved and that is why primary care physician ordered CT chest and patient was found with suspec luis lung cancer and patient was referred to Dr. Ferguson as an outpatient basis. Patient had bronchosco py in late September and subsequently patient was diagnosed with lung cancer. Patient also had mediast inoscopy and lymph node biopsy and lymph biopsy proved metastatic squamous cell carcinoma. He was re cently admitted in our hospital on early October. At that time, he was found with metastatic lesion in femoral shaft and it was suspected for bone metastases. Patient was referred to Oncology and the y saw this patient about a week ago and now patient is supposed to get chemotherapy tomorrow, but pat ient was gradually getting worse. He was feeling shortness of breath, wheezing, weak, constipated, n ausea and vomiting and that is why patient was brought to the emergency room last night and he was ad mitted. In the emergency room, his routine blood tests showed mild leukocytosis, hypercalcemia. He was given IV fluid and he is admitted to Oncology floor for further evaluation and treatment. ALLERGIES: No known drug allergies. CURRENT HOME MEDICATIONS: Albuterol sulfate nebulization q.8 hourly, Phenergan with codeine 5 mL q.i .d. p.r.n., alprazolam 0.25 mg p.o. at bedtime, Tessalon 100 mg p.o. t.i.d. p.r.n., ibuprofen 600 mg q.4 hourly p.r.n., tramadol 100 mg q.4 hourly p.r.n. REVIEW OF SYSTEMS: The following complete review of systems was negative, unless otherwise mentioned in the HPI or below: Constitutional: Weight loss or gain, ability to conduct usual activities. Skin: Rash, itching. Eyes: Double vision, pain. ENT/Mouth: Nose bleeding, neck stiffness, pain, tenderness. Cardiovascular: Palpitations, dyspnea on exertion, orthopnea. Respiratory: Shortness of breath, wheezing, cough, hemoptysis, fever or night sweats. Gastrointestinal: Poor appetite, abdominal pain, heartburn, nausea, vomiting, constipation, or diarr hea. Genitourinary: Urgency, frequency, dysuria, nocturia. Musculoskeletal: Pain, swelling. Neurologic/Psychiatric: Anxiety, depression. Allergy/Immunologic: Skin rash, bleeding tendency. Please see my HPI for pertinent positive and negative. All other review of systems reviewed and nega tive except as mentioned in the HPI. PAST MEDICAL HISTORY: Recent diagnosis of metastatic squamous cell carcinoma of left lung. PAST PSYCHIATRIC HISTORY: Anxiety. PAST SURGICAL HISTORY: Bronchoscopy, mediastinoscopy and lymph node biopsy. SOCIAL HISTORY: Patient lives at home. He is . No history of tobacco, alcohol or illicit dr ug abuse. FAMILY HISTORY: No strong family history of premature coronary artery disease, stroke or cancer. EMERGENCY ROOM COURSE: Patient is given Levaquin 750 mg, tramadol 100 mg, ibuprofen 600 mg, DuoNeb t herapy and IV fluid. Paramedics saw this patient at home. At that time, his blood pressure was 200/110 and he was given n itrospray. After that his blood pressure improved. Initially, his oxygen saturation was in 90s on r oom air, but after 2 liter nasal cannula, his oxygen saturation improved to 98%. PHYSICAL EXAMINATION: VITAL SIGNS: On arrival, blood pressure 143/96, pulse 117, respiratory rate 38, temperature 99.1, sa turation 96% on 2 liters oxygen and 86% on room air in the emergency room. Weight 100.24 kilograms. GENERAL: Patient is currently alert, awake, appears weak. No obvious acute distress. HEAD: Normocephalic, atraumatic. EYES: Pupils round, reactive to light. Extraocular muscle intact. ENT: Oropharynx within normal limits. Moist mucous membranes. No oral lesions. No pharyngeal eryt susan, no exudate. NECK: Supple, no JVD, no thyromegaly, no carotid bruits. LUNGS: Bilateral end expiratory wheezing heard. Air entry reduced at left base. Few scattered rale s at left base noted. CARDIAC: S1, S2 regular, tachycardia, no murmur, no gallop, no rub. ABDOMEN: Soft, bowel sounds present, nontender, nondistended. No organomegaly, no mass, no suprapub ic tenderness. BACK: Examination unremarkable, no CVA tenderness. EXTREMITIES: Upper extremity, passive movements of all joints are normal. Lower extremity, passive movements of all joints are normal. No edema, good peripheral pulsation. SKIN: No skin rash. HEMATOLOGICAL SYSTEM: No lymphadenopathy. PSYCHIATRIC: Anxious affect. NEUROLOGIC: Nonfocal examination. IMAGING DATA AND SIGNIFICANT LABORATORY DATA: 1. EKG showing sinus tachycardia, nonspecific ST-T changes. 2. Chest x-ray based on my review reported as pulmonary vascular congestion and left pleural fluid r edistributed, but similar to previous radiographs. 3. CBC: WBC is 13.9, hemoglobin 10.8, platelet 641. 4. VBG: pH 7.45, bicarbonate 29.1 CO2 41.6, O2 89.9 5. BMP: Sodium 140, potassium 4.2, chloride 99, carbon dioxide 27, BUN 20, creatinine 1.10, glucose 109, lactic acid 1.2, calcium 13.2. 6. LFT: AST 24, ALT 21, alkaline phosphatase 105, albumin 3.2. Urinalysis unremarkable. 7. Influenza screen negative. Blood culture is negative. ASSESSMENT AND PLAN/IMPRESSION: 1. Acute on chronic dyspnea likely related with underlying pulmonary vascular congestion as well as pleural effusion in view of squamous cell carcinoma of left lung. 2. Acute hypoxic respiratory failure, likely related with problem #1. We will rule out any cardiac etiology as well with echocardiography. 3. Hypercalcemia malignancy, most likely related with underlying squamous cell carcinoma of lung. T he patient will be given force diuresis, IV fluid and Lasix combined treatment and we will watch for any volume overload. We will also continue DuoNeb therapy every 6 hourly. 4. Anemia of chronic disease, likely due to underlying malignancy. 5. Metastatic lung cancer. Patient is planned for chemotherapy tomorrow. We will consult Oncology. 6. Anxiety disorder. 7. Plan is full admission to Oncology. Oncology will be consulted. At this point; however, doubt f or infection is less, but we will continue empiric levofloxacin 750 mg IV daily. We will continue IV fluid with NS at 100 mL per hour and at the same time, we will continue with Lasix 20 mg IV b.i.d. t o prevent any fluid overload status and we will continue DuoNeb therapy every 6 hourly. We will also continue patient's home medication for cough and other symptomatic treatment as well as pain control with pain medication. We are going to obtain echocardiography to rule out any cardiac dysfunction a nd we will repeat labs tomorrow. 8. Deep venous thrombosis prophylaxis, Lovenox 40 mg subcu daily. 9. Gastrointestinal prophylaxis, Pepcid 20 mg IV b.i.d. 10. Code status: The patient is FULL CODE. The patient's is surrogate decision maker. Disposition plan based on clinical course. We are expecting patient's stay in hospital more than 2 m idnights. Plan of care discussed with the patient and family member at bedside.
[2017-10-28] MEDS: Furosemide 20 MG/2 ML VIAL SLOW IVP SCH (12:46)
--- NOTE | 2017-10-28 14:51 | CON ---
DATE OF CONSULTATION: 10/28/2017 REASON FOR CONSULTATION: Squamous cell carcinoma of the lung. HISTORY OF PRESENT ILLNESS: Mr. Otoole is a 57-year-old male who began to have hemoptysis in late August. Chest x-ray showed opacity in the left upper lobe with a prominent left hilum. A CT scan of the abdomen and pelvis showed a left pleural effusion, fracture of the lateral right eighth rib and retrocrural and periaortic lymph nodes. There was bone mets involving T12, L1, 2 and 3. MRI of the brain was negative. He had a bronchoscopy by Dr. Ferguson, which showed friable mass in the lef t upper lobe bronchus. Biopsy was compatible with squamous cell carcinoma. He was evaluated by Orth opedics for his right femur and did not feel that a prophylactic surgery was needed. His pain was co ntrolled with tramadol and codeine, Tylenol with codeine. Over the past weekend, he became increasin gly short of breath and presented to the emergency room for evaluation. Chest x-ray showed again ple ural effusion and felt that it was not significantly worse. He did have an increasing pulmonary vasc ular congestion. He was admitted and started on Lasix. We were asked to see the patient regarding t reatment options. The patient denies any chest pain. He does have shortness of breath and dyspnea o n exertion. He complains of right rib pain, no leg pain. He has had a poor appetite and has lost a couple of pounds. PAST MEDICAL HISTORY: 1. Newly diagnosed squamous cell carcinoma of the lung. 2. Hypertension. 3. Hyperlipidemia. PAST SURGICAL HISTORY: 1. Bronchoscopy with biopsy. 2. Mediastinoscopy. ALLERGIES: No known drug allergies. HOME MEDICATIONS: 1. Albuterol inhaler p.r.n. 2. Xanax 0.25 mg p.r.n. 3. Tessalon Perles t.i.d. p.r.n. 4. Ibuprofen p.r.n. 5. Promethazine codeine cough syrup p.r.n. 6. Tramadol 50 mg p.r.n. FAMILY HISTORY: His father had unknown type of cancer and history of cardiac problems. SOCIAL HISTORY: , has 4 children and lives with his spouse. Social drinker, former smoker. No illicit drug use. REVIEW OF SYSTEMS: Ten point review of systems is negative except for noted in HPI. PHYSICAL EXAMINATION: VITAL SIGNS: Temperature is 97.1, pulse is 84, respiratory rate 24, BP is 174/96, he is 92% on 2 lit ers. GENERAL: This is a well-developed and well-nourished male in mild respiratory distress. HEENT: Normocephalic, atraumatic. Pupils are equal and reactive to light. He has poor dentition. NECK: Supple. CARDIOVASCULAR: Regular rate and rhythm. LUNGS: He has diminished throughout his left lobe. ABDOMEN: Soft and nontender. Bowel sounds are positive. EXTREMITIES: There is no clubbing, cyanosis or edema. SKIN: No rash. HEMATOLOGIC: There is no petechia or purpura. NEUROLOGIC: Nonfocal. PSYCHIATRIC: The patient is alert and oriented and appropriate. PERTINENT LABORATORY DATA AND IMAGING DATA: Current WBCs are 11.1, hemoglobin 9.4, hematocrit 30.7, platelet count is 554,000, 65% neutrophils, 20% lymphocytes, 13% monocytes. Sodium is 140, potassium is 3.8, chloride is 101, CO2 is 30, BUN is 21, creatinine 0.99, calcium is 12.5. Urine is unremarka ble. Chest x-ray per HPI. ASSESSMENT: 1. Newly diagnosed squamous cell carcinoma of the left lung. 2. Hypercalcemia. 3. Acute on chronic respiratory distress. DISCUSSION: The patient will receive his first dose of chemotherapy tomorrow. We will treat his jenae cium with Zometa. We have asked Dr. Ferguson to wean on his chest x-ray if he feels like the pleural ef fusion needs a thoracentesis. Otherwise, we will provide supportive care. Thank you for the consult.
[2017-10-28] MEDS: traMADol HCl 50 MG TAB PO PRN (18:14)
[2017-10-28] MEDS: Senokot 8.6 MG TAB PO SCH (20:02)
[2017-10-28] MEDS: Temazepam 15 MG CAP PO PRN (20:12)
[2017-10-29] MEDS ORDERED: Famotidine 20 MG TAB PO SCH (01:15)
[2017-10-29] MEDS: Labetalol HCl 100 MG/20 ML VIAL SLOW IVP PRN ×2 (04:09→18:57)
[2017-10-29 05:45] LABS: #Basophils 0.1 thou/uL (0.0-0.2); #Eosinphils 0.1 thou/uL (0.0-0.7); #Lymphocytes 1.9 thou/uL (1.20-3.40); #Monocytes 1.6 thou/uL (0.11-0.59); #Neutrophils 9.8 thou/uL (1.40-6.50); %Basophils 0.6 % (0.0-1.0); %Eosinophils 1.1 % (0.0-10.0); %Lymphocytes 13.9 % (21.0-51.0); %Neutrophils 72.5 % (42.0-75.0); Mean Corpuscular HGB CONC 30.6 g/dL (32.0-36.0); Mean Corpuscular Hemoglobin 26.9 pg (27.0-31.0); Mean Corpuscular Volume 87.9 fl (80.0-94.0); Mean Platelet Volume 5.8 fL (7.4-10.4); Platelet Count 516 thou/uL (130-400); RBC Distribution Width 15.6 % (11.5-14.5); Red Blood Cell (RBC) Count 3.71 mill/uL (4.70-6.10); White Blood Cell (WBC) Count 13.5 thou/uL (4.8-10.8)
[2017-10-29] MEDS: Furosemide 20 MG/2 ML VIAL SLOW IVP SCH ×2 (05:52→15:04)
[2017-10-29] MEDS ORDERED: diphenhydrAMINE 50 MG in Sodium Chloride 0.9% 50 ML IVPB SCH (06:00)
[2017-10-29] MEDS ORDERED: Famotidine/PF 20 MG in Sodium Chloride 0.9% 50 ML IVPB SCH (06:00)
[2017-10-29] MEDS ORDERED: Dexamethasone 20 MG in Sodium Chloride 0.9% 50 ML IVPB SCH (06:00)
[2017-10-29] MEDS ORDERED: CARBOplatin 650 MG in Sodium Chloride 0.9% 250 ML 250 ML IVPB SCH (06:00)
[2017-10-29 06:08] LABS: ALT (SGPT) 16 U/L (8-55); AST (SGOT) 22 U/L (5-34); Albumin 2.8 g/dL (3.5-5.0); Alkaline Phosphatase 87 U/L (40-150); Anion Gap 14 mmol/L (10-20); BUN (Urea Nitrogen) 18 mg/dL (8.4-25.7); Bilirubin, Total 0.2 mg/dL (0.2-1.2); Calc. Creatinine Clearance 121 mL/min (70-130); Calcium 11.8 mg/dL (7.8-10.44); Carbon Dioxide 25 mmol/L (22-29); Chloride 102 mmol/L (98-107); Estimated GFR-MDRD 87; Globulin 3.6 g/dL (2.4-3.5); Glucose 109 mg/dL (70-105); Potassium 3.9 mmol/L (3.5-5.1); Protein, Total 6.4 g/dL (6.0-8.3); Sodium 137 mmol/L (136-145)
[2017-10-29] MEDS: Sodium Chloride 0.9% 1,000 ML IV SCH (08:56)
[2017-10-29] MEDS: Docusate 100 MG CAP PO SCH ×2 (08:57→20:40)
[2017-10-29] MEDS: Mag-Al 1200 mg/1200 mg/30 ML UDCUP PO PRN (08:57)
[2017-10-29] MEDS: Phenergan/Codeine 10-6.25mg/5ml UDCUP PO SCH ×4 (08:57→20:51)
[2017-10-29] MEDS: Enoxaparin Sodium 40 MG/0.4 ML SYRINGE SC SCH (08:58)
[2017-10-29] MEDS ORDERED: FLU VACC QS2017-18 36 mo. & older 0.5 ML SYRINGE IM ONE (09:00)
[2017-10-29] MEDS: Famotidine 20 MG TAB PO SCH ×2 (09:33→20:40)
--- NOTE | 2017-10-29 09:51 | PDOC.PN ---
- Subjective Encounter Start Date: 10/29/17 Encounter Start Time: 07:00 -: old records requested/rev Patient seen and examined. No new complaints. No overnight events coughing spells did not allow him good sleep last night - Objective Resuscitation Status: Resuscitation Status FULL:Full Resuscitation MAR Reviewed: Yes Vital Signs & Weight: Vital Signs (12 hours) Temp Pulse Resp BP BP Pulse Ox 10/29/17 07:30 97.8 F 96 24 H 159/91 H 93 L 10/29/17 05:45 97 22 H 192/96 H 94 L 10/29/17 05:10 96 175/98 H 10/29/17 05:06 96 24 H 175/96 H 93 L 10/29/17 04:09 107 H 181/98 H 10/29/17 04:00 99.0 F 107 H 24 H 92 L 10/29/17 02:28 95 10/29/17 01:10 115 H 20 93 L 10/28/17 23:40 112 H 24 H 94 L 10/28/17 23:27 116 H 20 91 L 10/28/17 23:10 98.6 F 116 H 24 H 163/86 H 91 L Weight Admit Weight 208 lb Weight 207 lb 14.334 oz I&O: 10/28/17 10/29/17 10/30/17 06:59 06:59 06:59 Intake Total 3820 Output Total 2975 Balance 845 Result Diagrams: 10/29/17 05:37 10/29/17 05:37 Phys Exam - Physical Examination Constitutional: NAD HEENT: PERRLA, moist MMs, sclera anicteric Neck: no JVD, supple Respiratory: no wheezing, no rales, no rhonchi Cardiovascular: RRR, no significant murmur, no rub Gastrointestinal: soft, non-tender, no distention, positive bowel sounds Musculoskeletal: no edema, pulses present Neurological: non-focal, normal sensation, moves all 4 limbs Psychiatric: normal affect, A&O x 3 Skin: no rash, normal turgor Dx/Plan (1) Dyspnea Code(s): R06.00 - DYSPNEA, UNSPECIFIED Status: Acute Qualifiers: Dyspnea type: dyspnea on exertion Qualified Code(s): R06.09 - Other forms of dyspnea (2) Acute respiratory failure with hypoxia Code(s): J96.01 - ACUTE RESPIRATORY FAILURE WITH HYPOXIA Status: Acute (3) Metastatic squamous cell carcinoma Code(s): C79.9 - SECONDARY MALIGNANT NEOPLASM OF UNSPECIFIED SITE; C80.1 - MALIGNANT (PRIMARY) NEOPLASM, UNSPECIFIED Status: Chronic Comment: primary lung cancer, with bone and lymph node mets (4) Hypercalcemia of malignancy Code(s): E83.52 - HYPERCALCEMIA Status: Acute (5) Pulmonary vascular congestion Code(s): R09.89 - OTH SYMPTOMS AND SIGNS INVOLVING THE CIRC AND RESP SYSTEMS Status: Acute (6) Pleural effusion, left Code(s): J90 - PLEURAL EFFUSION, NOT ELSEWHERE CLASSIFIED Status: Acute (7) Anemia of chronic disease Code(s): D63.8 - ANEMIA IN OTHER CHRONIC DISEASES CLASSIFIED ELSEWHERE Status : Chronic (8) Anxiety and depression Code(s): F41.8 - OTHER SPECIFIED ANXIETY DISORDERS Status: Chronic - Plan cont current plan of care, plan discussed w/ family, continue antibiotics, respiratory therapy * today plan for chemotherapy as per oncology * Zometa for hypercalcemia * DC IVF * continue lasix today * echo pending result * medication reviewed as below * symptomatic treatment * discussed with . Review of Systems - Review of Systems Constitutional: negative: fever, chills, sweats, weakness, malaise, other Eyes: negative: Pain, Vision Change, Conjunctivae Inflammation, Eyelid Inflammation, Redness, Other ENT: negative: Ear Pain, Ear Discharge, Nose Pain, Nose Discharge, Nose Congestion, Mouth Pain, Mouth Swelling, Throat Pain, Throat Swelling, Other Respiratory: Cough, Shortness of Breath, SOB with Excertion. negative: Dry, Hemoptysis, Pleuritic Pain, Sputum, Wheezing Cardiovascular: negative: chest pain, palpitations, orthopnea, paroxysmal nocturnal dyspnea, edema, light headedness, other Gastrointestinal: negative: Nausea, Vomiting, Abdominal Pain, Diarrhea, Constipation, Melena, Hematochezia, Other Genitourinary: negative: Dysuria, Frequency, Incontinence, Hematuria, Retention , Other Musculoskeletal: negative: Neck Pain, Shoulder Pain, Arm Pain, Back Pain, Hand Pain, Leg Pain, Foot Pain, Other Skin: negative: Rash, Lesions, Alan, Bruising, Other - Medications/Allergies Allergies/Adverse Reactions: Allergies Allergy/AdvReac Type Severity Reaction Status Date / Time No Known Allergies Allergy Verified 10/28/17 03:01 Medications: Current Medications Acetaminophen (Tylenol) 650 mg PO Q4H PRN PRN Reason: Headache/Fever or Pain Hydrocodone Bitart/Acetaminophen ([place] 5/325) 1 tab PO Q4H PRN PRN Reason: Moderate Pain (4-6) Al Hydroxide/Mg Hydroxide (Maalox) 15 ml PO Q4H PRN PRN Reason: Heartburn or Indigestion Last Admin: 10/29/17 08:57 Dose: 15 ml Albuterol Sulfate (Ventolin) 2.5 mg NEB Q4H PRN PRN Reason: Wheezing Last Admin: 10/28/17 23:27 Dose: 2.5 mg Albuterol/Ipratropium (Duoneb) 3 ml NEB [id number] [facility] Last Admin: 10/29/17 08:24 Dose: Not Given Alprazolam (Xanax) 0.25 mg PO HS PRN PRN Reason: Insomnia Artificial Tears (Tears Naturale) 0 drop EA EYE PRN PRN PRN Reason: Dry Eyes Benzonatate (Tessalon) 100 mg PO TID PRN PRN Reason: Cough Docusate Sodium (Colace) 100 mg PO BID [facility] Last Admin: 10/29/17 08:57 Dose: 100 mg Enoxaparin Sodium (Lovenox) 40 mg SC 0900 [facility] Last Admin: 10/29/17 08:58 Dose: 40 mg Famotidine (Pepcid) 20 mg PO BID [facility] Last Admin: 10/29/17 09:33 Dose: 20 mg Furosemide (Lasix) 20 mg SLOW IVP 0600,1400 [facility] Last Admin: 10/29/17 05:52 Dose: 20 mg Guaifenesin (Organ-I Nr) 400 mg PO Q4H PRN PRN Reason: Cough Levofloxacin 750 mg/ Device 150 mls @ 100 mls/hr IVPB Q24HR [facility] Sodium Chloride (Normal Saline 0.9%) 1,000 mls @ 100 mls/hr IV .Q10H [facility] Last Admin: 10/29/17 08:56 Dose: 1,000 mls Paclitaxel 370 mg/ Sodium (Chloride) 561.67 mls @ 187.223 mls/hr IVPB ONE [facility] Stop: 10/29/17 23:59 Palonosetron 0.25 mg/ Sodium (Chloride) 55 mls @ 165 mls/hr IVPB ONE [facility] Stop: 10/29/17 23:59 Dexamethasone 20 mg/ Sodium (Chloride) 55 mls @ 165 mls/hr IVPB ONE [facility] Stop: 10/29/17 23:59 Diphenhydramine HCl 50 mg/ (Sodium Chloride) 51 mls @ 153 mls/hr IVPB ONE [facility] Stop: 10/29/17 23:00 Famotidine 20 mg/ Sodium (Chloride) 52 mls @ 156 mls/hr IVPB ONE [facility] Stop: 10/29/17 23:59 Carboplatin 650 mg/ Sodium (Chloride) 315 mls @ 420 mls/hr IVPB ONE [facility] Stop: 10/29/17 23:59 Ibuprofen (Motrin) 600 mg PO Q4H PRN PRN Reason: Pain Labetalol HCl (Normodyne) 10 mg SLOW IVP Q4H PRN PRN Reason: SBP Greater Than 180 Last Admin: 10/29/17 04:09 Dose: 10 mg Lactulose (Lactulose) 20 gm PO DAILYPRN PRN PRN Reason: Constipation Loperamide HCl (Imodium) 2 mg PO PRN PRN PRN Reason: Diarrhea/Loose Stools Loratadine (Claritin) 10 mg PO DAILYPRN PRN PRN Reason: Sinus Symptoms Magnesium Hydroxide (Milk Of Magnesium) 30 ml PO DAILYPRN PRN PRN Reason: Constipation Mineral Oil/White Petrolatum (Eucerin Cream) 0 gm TOP BIDPRN PRN PRN Reason: Dry Skin Ondansetron HCl (Zofran) 4 mg IVP Q6H PRN PRN Reason: Nausea/Vomiting Ondansetron HCl (Zofran Odt) 4 mg PO Q6H PRN PRN Reason: Nausea/Vomiting Pantoprazole Sodium (Protonix) 40 mg PO DAILY [facility] Last Admin: 10/29/17 08:57 Dose: 40 mg Phenol (Chloraseptic [place] 180 Ml Bot) 0 ml PO PRN PRN PRN Reason: Sore Throat Promethazine HCl/Codeine (Phenergan/Codeine Syrup) 5 ml PO QID [facility] Last Admin: 10/29/17 08:57 Dose: 5 ml Senna (Senokot) 2 tab PO HS [facility] Last Admin: 10/28/17 20:02 Dose: 2 tab Sodium Biphosphate/Sodium Phosphate (Fleet Enema) 133 ml WA ONE PRN PRN Reason: Constipation Stop: 11/02/17 00:03 Sodium Chloride (Flush - Normal Saline) 10 ml IVF Q12HR MAR[facility] Last Admin: 10/29/17 08:58 Dose: 10 ml Sodium Chloride (Flush - Normal Saline) 10 ml IVF PRN PRN PRN Reason: Saline Flush Last Admin: 10/29/17 05:52 Dose: 10 ml Sodium Chloride ([place] Nasal [place] 0.65%) 0 ml EA NARE QIDPRN PRN PRN Reason: Nasal Congestion Temazepam (Restoril) 15 mg PO HSPRN PRN PRN Reason: Insomnia Last Admin: 10/28/17 20:12 Dose: 15 mg Tramadol HCl (Ultram) 100 mg PO Q4H PRN PRN Reason: Pain Last Admin: 10/28/17 18:14 Dose: 100 mg
[2017-10-29] MEDS: traMADol HCl 50 MG TAB PO PRN (15:04)
[2017-10-29] MEDS ORDERED: Zoledronic Acid 4 MG in Sodium Chloride 0.9% 100 ML IVPB SCH (17:15)
[2017-10-29] MEDS ORDERED: Palonosetron HCl 0.25 MG in Sodium Chloride 0.9% 50 ML IVPB SCH (19:15)
[2017-10-29] MEDS: Temazepam 15 MG CAP PO PRN (20:40)
[2017-10-29] MEDS: Senokot 8.6 MG TAB PO SCH (20:41)
[2017-10-30] MEDS: Furosemide 20 MG/2 ML VIAL SLOW IVP SCH ×2 (06:20→13:55)
[2017-10-30 07:33] LABS: #Lymphocytes 0.9 thou/uL (1.20-3.40); #Monocytes 0.4 thou/uL (0.11-0.59); #Neutrophils 10.9 thou/uL (1.40-6.50); %Basophils 0.1 % (0.0-1.0); %Eosinophils 0.2 % (0.0-10.0); %Lymphocytes 6.9 % (21.0-51.0); %Monocytes 3.2 % (0.0-10.0); %Neutrophils 89.6 % (42.0-75.0); Hemoglobin 10.2 g/dL (14.0-18.0); Mean Corpuscular Hemoglobin 26.7 pg (27.0-31.0); Mean Corpuscular Volume 86.1 fl (80.0-94.0); Mean Platelet Volume 6.3 fL (7.4-10.4); Platelet Count 532 thou/uL (130-400); RBC Distribution Width 15.2 % (11.5-14.5); Red Blood Cell (RBC) Count 3.83 mill/uL (4.70-6.10); White Blood Cell (WBC) Count 12.2 thou/uL (4.8-10.8)
[2017-10-30 08:00] LABS: ALT (SGPT) 81 U/L (8-55); AST (SGOT) 123 U/L (5-34); Albumin 3.1 g/dL (3.5-5.0); Alkaline Phosphatase 142 U/L (40-150); Anion Gap 14 mmol/L (10-20); BUN (Urea Nitrogen) 24 mg/dL (8.4-25.7); Bilirubin, Total 0.4 mg/dL (0.2-1.2); Calc. Creatinine Clearance 116 mL/min (70-130); Calcium 11.4 mg/dL (7.8-10.44); Carbon Dioxide 32 mmol/L (22-29); Chloride 100 mmol/L (98-107); Estimated GFR-MDRD 83; Glucose 136 mg/dL (70-105); Magnesium 1.9 mg/dL (1.6-2.6); Phosphorus 3.1 mg/dL (2.3-4.7); Potassium 3.5 mmol/L (3.5-5.1); Protein, Total 7.1 g/dL (6.0-8.3); Sodium 142 mmol/L (136-145)
--- NOTE | 2017-10-30 09:21 | PDOC.PN ---
- Subjective Encounter Start Date: 10/30/17 Encounter Start Time: 07:00 weak, mild disorientation as per , no fever, still needs oxygen - Objective Resuscitation Status: Resuscitation Status FULL:Full Resuscitation MAR Reviewed: Yes Vital Signs & Weight: Vital Signs (12 hours) Temp Pulse Resp BP Pulse Ox 10/30/17 08:00 97.6 F 92 24 H 152/88 H 92 L 10/30/17 07:23 99 18 96 10/30/17 04:30 97 10/30/17 04:00 97.9 F 92 20 172/78 H 97 10/30/17 01:55 111 H 18 97 10/30/17 00:00 94 L Weight Admit Weight 208 lb Weight 207 lb 14.334 oz I&O: 10/29/17 10/30/17 10/31/17 06:59 06:59 06:59 Intake Total 3820 2320 Output Total 2975 1250 Balance 845 1070 Result Diagrams: 10/30/17 06:55 10/30/17 06:55 Phys Exam - Physical Examination Constitutional: NAD HEENT: PERRLA, moist MMs, sclera anicteric Neck: no JVD, supple Respiratory: no wheezing, no rales, no rhonchi Cardiovascular: RRR, no significant murmur, no rub Gastrointestinal: soft, non-tender, no distention, positive bowel sounds Musculoskeletal: no edema, pulses present Neurological: non-focal, normal sensation, moves all 4 limbs Psychiatric: normal affect Skin: no rash, normal turgor Dx/Plan (1) Dyspnea Code(s): R06.00 - DYSPNEA, UNSPECIFIED Status: Acute Qualifiers: Dyspnea type: dyspnea on exertion Qualified Code(s): R06.09 - Other forms of dyspnea (2) Acute respiratory failure with hypoxia Code(s): J96.01 - ACUTE RESPIRATORY FAILURE WITH HYPOXIA Status: Acute (3) Metastatic squamous cell carcinoma Code(s): C79.9 - SECONDARY MALIGNANT NEOPLASM OF UNSPECIFIED SITE; C80.1 - MALIGNANT (PRIMARY) NEOPLASM, UNSPECIFIED Status: Chronic Comment: primary lung cancer, with bone and lymph node mets (4) Hypercalcemia of malignancy Code(s): E83.52 - HYPERCALCEMIA Status: Acute (5) Pulmonary vascular congestion Code(s): R09.89 - OTH SYMPTOMS AND SIGNS INVOLVING THE CIRC AND RESP SYSTEMS Status: Acute (6) Pleural effusion, left Code(s): J90 - PLEURAL EFFUSION, NOT ELSEWHERE CLASSIFIED Status: Acute (7) Anemia of chronic disease Code(s): D63.8 - ANEMIA IN OTHER CHRONIC DISEASES CLASSIFIED ELSEWHERE Status : Chronic (8) Anxiety and depression Code(s): F41.8 - OTHER SPECIFIED ANXIETY DISORDERS Status: Chronic (9) Transaminitis Code(s): R74.0 - NONSPEC ELEV OF LEVELS OF TRANSAMNS & LACTIC ACID DEHYDRGNSE Status: Acute (10) Diastolic dysfunction Code(s): I51.9 - HEART DISEASE, UNSPECIFIED Status: Acute - Plan cont current plan of care, plan discussed w/ family, continue antibiotics, respiratory therapy * evaluate for need for home oxygen * ambulate with walking program * repeat labs tomorrow * s/p chemotherapy yesterday * medication reviewed as below * symptomatic treatment. Review of Systems - Review of Systems Constitutional: weakness. negative: fever, chills, sweats, malaise, other Eyes: negative: Pain, Vision Change, Conjunctivae Inflammation, Eyelid Inflammation, Redness, Other ENT: negative: Ear Pain, Ear Discharge, Nose Pain, Nose Discharge, Nose Congestion, Mouth Pain, Mouth Swelling, Throat Pain, Throat Swelling, Other Respiratory: Shortness of Breath, SOB with Excertion. negative: Cough, Dry, Hemoptysis, Pleuritic Pain, Sputum, Wheezing Gastrointestinal: negative: Nausea, Vomiting, Abdominal Pain, Diarrhea, Constipation, Melena, Hematochezia, Other Genitourinary: negative: Dysuria, Frequency, Incontinence, Hematuria, Retention , Other Musculoskeletal: negative: Neck Pain, Shoulder Pain, Arm Pain, Back Pain, Hand Pain, Leg Pain, Foot Pain, Other Skin: negative: Rash, Lesions, Alna, Bruising, Other Neurological: Confusion. negative: Weakness, Numbness, Incoordination, Change in Speech, Seizures, Other - Medications/Allergies Allergies/Adverse Reactions: Allergies Allergy/AdvReac Type Severity Reaction Status Date / Time No Known Allergies Allergy Verified 10/28/17 03:01 Medications: Current Medications Acetaminophen (Tylenol) 650 mg PO Q4H PRN PRN Reason: Headache/Fever or Pain Hydrocodone Bitart/Acetaminophen ([place] 5/325) 1 tab PO Q4H PRN PRN Reason: Moderate Pain (4-6) Al Hydroxide/Mg Hydroxide (Maalox) 15 ml PO Q4H PRN PRN Reason: Heartburn or Indigestion Last Admin: 10/29/17 08:57 Dose: 15 ml Albuterol Sulfate (Ventolin) 2.5 mg NEB Q4H PRN PRN Reason: Wheezing Last Admin: 10/28/17 23:27 Dose: 2.5 mg Albuterol/Ipratropium (Duoneb) 3 ml NEB [id number] [facility] Last Admin: 10/30/17 07:23 Dose: 3 ml Alprazolam (Xanax) 0.25 mg PO HS PRN PRN Reason: Insomnia Artificial Tears (Tears Naturale) 0 drop EA EYE PRN PRN PRN Reason: Dry Eyes Benzonatate (Tessalon) 100 mg PO TID PRN PRN Reason: Cough Docusate Sodium (Colace) 100 mg PO BID [facility] Last Admin: 10/29/17 20:40 Dose: 100 mg Enoxaparin Sodium (Lovenox) 40 mg SC 0900 [facility] Last Admin: 10/29/17 08:58 Dose: 40 mg Famotidine (Pepcid) 20 mg PO BID [facility] Last Admin: 10/29/17 20:40 Dose: 20 mg Furosemide (Lasix) 20 mg SLOW IVP 0600,1400 [facility] Last Admin: 10/30/17 06:20 Dose: 20 mg Guaifenesin (Organ-I Nr) 400 mg PO Q4H PRN PRN Reason: Cough Levofloxacin 750 mg/ Device 150 mls @ 100 mls/hr IVPB Q24HR [facility] Last Admin: 10/29/17 23:13 Dose: 150 mls Ibuprofen (Motrin) 600 mg PO Q4H PRN PRN Reason: Pain Last Admin: 10/29/17 15:07 Dose: 600 mg Labetalol HCl (Normodyne) 10 mg SLOW IVP Q4H PRN PRN Reason: SBP Greater Than 180 Last Admin: 10/29/17 18:57 Dose: 10 mg Lactulose (Lactulose) 20 gm PO DAILYPRN PRN PRN Reason: Constipation Loperamide HCl (Imodium) 2 mg PO PRN PRN PRN Reason: Diarrhea/Loose Stools Loratadine (Claritin) 10 mg PO DAILYPRN PRN PRN Reason: Sinus Symptoms Magnesium Hydroxide (Milk Of Magnesium) 30 ml PO DAILYPRN PRN PRN Reason: Constipation Mineral Oil/White Petrolatum (Eucerin Cream) 0 gm TOP BIDPRN PRN PRN Reason: Dry Skin Ondansetron HCl (Zofran) 4 mg IVP Q6H PRN PRN Reason: Nausea/Vomiting Ondansetron HCl (Zofran Odt) 4 mg PO Q6H PRN PRN Reason: Nausea/Vomiting Pantoprazole Sodium (Protonix) 40 mg PO DAILY [facility] Last Admin: 10/29/17 08:57 Dose: 40 mg Phenol (Chloraseptic Brogue 180 Ml Bot) 0 ml PO PRN PRN PRN Reason: Sore Throat Promethazine HCl/Codeine (Phenergan/Codeine Syrup) 5 ml PO QID [facility] Last Admin: 10/29/17 20:51 Dose: 5 ml Senna (Senokot) 2 tab PO HS [facility] Last Admin: 10/29/17 20:41 Dose: Not Given Sodium Biphosphate/Sodium Phosphate (Fleet Enema) 133 ml PA ONE PRN PRN Reason: Constipation Stop: 11/02/17 00:03 Sodium Chloride (Flush - Normal Saline) 10 ml IVF Q12HR [facility] Last Admin: 10/29/17 20:41 Dose: 10 ml Sodium Chloride (Flush - Normal Saline) 10 ml IVF PRN PRN PRN Reason: Saline Flush Last Admin: 10/30/17 06:20 Dose: 10 ml Sodium Chloride ([place] Nasal Brogue 0.65%) 0 ml EA NARE QIDPRN PRN PRN Reason: Nasal Congestion Temazepam (Restoril) 15 mg PO HSPRN PRN PRN Reason: Insomnia Last Admin: 10/29/17 20:40 Dose: 15 mg Tramadol HCl (Ultram) 100 mg PO Q4H PRN PRN Reason: Pain Last Admin: 10/29/17 15:04 Dose: 100 mg
[2017-10-30] MEDS: Enoxaparin Sodium 40 MG/0.4 ML SYRINGE SC SCH (09:27)
[2017-10-30] MEDS: Famotidine 20 MG TAB PO SCH ×2 (09:27→22:04)
[2017-10-30] MEDS: Docusate 100 MG CAP PO SCH ×2 (09:27→22:04)
[2017-10-30] MEDS: Phenergan/Codeine 10-6.25mg/5ml UDCUP PO SCH ×4 (10:59→22:03)
[2017-10-30] MEDS: HYDROcodone/Acetaminophen 5/325 mg Tablet PO PRN (14:14)
[2017-10-30] MEDS: Mag-Al 1200 mg/1200 mg/30 ML UDCUP PO PRN ×2 (17:27→22:03)
[2017-10-30] MEDS: Senokot 8.6 MG TAB PO SCH (22:04)
[2017-10-31] MEDS: HYDROcodone/Acetaminophen 5/325 mg Tablet PO PRN ×5 (02:46→23:52)
[2017-10-31] MEDS: Furosemide 20 MG/2 ML VIAL SLOW IVP SCH ×2 (06:35→13:23)
[2017-10-31 06:36] LABS: ALT (SGPT) 87 U/L (8-55); AST (SGOT) 99 U/L (5-34); Alkaline Phosphatase 125 U/L (40-150); Anion Gap 12 mmol/L (10-20); BUN (Urea Nitrogen) 28 mg/dL (8.4-25.7); Bilirubin, Total 0.3 mg/dL (0.2-1.2); Calc. Creatinine Clearance 128 mL/min (70-130); Calcium 9.8 mg/dL (7.8-10.44); Carbon Dioxide 32 mmol/L (22-29); Chloride 101 mmol/L (98-107); Estimated GFR-MDRD Greater than 90; Globulin 3.6 g/dL (2.4-3.5); Glucose 124 mg/dL (70-105); Potassium 3.4 mmol/L (3.5-5.1); Protein, Total 6.6 g/dL (6.0-8.3); Sodium 142 mmol/L (136-145)
[2017-10-31] MEDS: Phenergan/Codeine 10-6.25mg/5ml UDCUP PO SCH ×4 (08:35→20:00)
[2017-10-31] MEDS: Docusate 100 MG CAP PO SCH ×2 (08:35→20:00)
[2017-10-31] MEDS: Famotidine 20 MG TAB PO SCH ×2 (08:35→20:00)
[2017-10-31] MEDS: Enoxaparin Sodium 40 MG/0.4 ML SYRINGE SC SCH (08:36)
--- NOTE | 2017-10-31 14:26 | PDOC.PN ---
- Subjective Encounter Start Date: 10/31/17 Encounter Start Time: 11:00 CC;P Dyspnea Sub: Pt is having intermittent confusion, worsening last few days per - Objective Resuscitation Status: Resuscitation Status FULL:Full Resuscitation Vital Signs & Weight: Vital Signs (12 hours) Temp Pulse Resp BP BP Pulse Ox 10/31/17 13:42 97 18 99 10/31/17 08:30 98.0 F 94 18 94 L 10/31/17 08:06 18 10/31/17 07:15 98.0 F 94 20 134/91 H 94 L 10/31/17 03:07 98.0 F 100 20 135/87 92 L Weight Admit Weight 208 lb Weight 207 lb 14.334 oz I&O: 10/30/17 10/31/17 11/01/17 06:59 06:59 06:59 Intake Total 2320 1500 Output Total 1250 Balance 1070 1500 Result Diagrams: 10/30/17 06:55 10/31/17 05:36 Dx/Plan - Plan - Physical Examination Constitutional: NAD, awake not oriented HEENT: PERRLA, moist MMs, sclera anicteric Neck: no JVD, supple Respiratory: diminished breath sound,s occasional crackle,s no accessory muscle usage seen Cardiovascular: RRR, no significant murmur, no rub Gastrointestinal: soft, non-tender, no distention, positive bowel sounds Musculoskeletal: no edema, pulses present Neurological: positive confusionm speech clear, follows some commands Psychiatric: normal affect Skin: no rash, normal turgor A/P: (1) Dyspnea Code(s): R06.00 - DYSPNEA, UNSPECIFIED Status: Acute Qualifiers: Dyspnea type: dyspnea on exertion Qualified Code(s): R06.09 - Other forms of dyspnea (2) Acute respiratory failure with hypoxia Code(s): J96.01 - ACUTE RESPIRATORY FAILURE WITH HYPOXIA Status: Acute (3) Metastatic squamous cell carcinoma Code(s): C79.9 - SECONDARY MALIGNANT NEOPLASM OF UNSPECIFIED SITE; C80.1 - MALIGNANT (PRIMARY) NEOPLASM, UNSPECIFIED Status: Chronic Comment: primary lung cancer, with bone and lymph node mets (4) Hypercalcemia of malignancy Code(s): E83.52 - HYPERCALCEMIA Status: Acute (5) Pulmonary vascular congestion Code(s): R09.89 - OTH SYMPTOMS AND SIGNS INVOLVING THE CIRC AND RESP SYSTEMS Status: Acute (6) Pleural effusion, left Code(s): J90 - PLEURAL EFFUSION, NOT ELSEWHERE CLASSIFIED Status: Acute (7) Anemia of chronic disease Code(s): D63.8 - ANEMIA IN OTHER CHRONIC DISEASES CLASSIFIED ELSEWHERE Status : Chronic (8) Anxiety and depression Code(s): F41.8 - OTHER SPECIFIED ANXIETY DISORDERS Status: Chronic (9) Transaminitis Code(s): R74.0 - NONSPEC ELEV OF LEVELS OF TRANSAMNS & LACTIC ACID DEHYDRGNSE Status: Acute (10) Diastolic dysfunction Code(s): I51.9 - HEART DISEASE, UNSPECIFIED Status: Acute 11. Pleural effusion - Plan cont current plan of care, plan discussed w/ family, continue antibiotics, respiratory therapy Reviewed onc note. will consult pulmonary for thoracentesist Pulse ox on room air in range, doesnt qualify for home oxygen Will consult neuro to evaluate patient check ct head and ammonia levels * repeat labs tomorrow * s/p chemotherapy yesterday * symptomatic treatment. d/w pt, pt & RN
--- NOTE | 2017-10-31 15:41 | CT ---
CT HEAD WITHOUT CONTRAST 10/31/17 HISTORY: Lung cancer, confusion, evaluate for metastatic disease. FINDINGS: Metastatic disease cannot be reliably evaluated for with a noncontrast enhanced head CT. There is no intracranial hemorrhage, midline shift, mass effect, or ventricular enlargement. The imaged paranasal sinuses and mastoid air cells are well aerated. There is no displaced calvarial fracture. IMPRESSION: No acute findings. If there is continued clinical concern for metastatic disease, brain MRI with and without contrast advised. POS: BERNARDAH
[2017-10-31] MEDS: Ondansetron ODT 4 MG TAB PO PRN (19:00)
[2017-10-31] MEDS: Senokot 8.6 MG TAB PO SCH (20:00)
[2017-11-01] MEDS: HYDROcodone/Acetaminophen 5/325 mg Tablet PO PRN ×4 (04:31→20:29)
[2017-11-01] MEDS: Furosemide 20 MG/2 ML VIAL SLOW IVP SCH ×2 (05:56→13:19)
[2017-11-01] MEDS: Ondansetron ODT 4 MG TAB PO PRN ×2 (06:00→20:35)
[2017-11-01 06:15] LABS: Anion Gap 14 mmol/L (10-20); BUN (Urea Nitrogen) 24 mg/dL (8.4-25.7); Calc. Creatinine Clearance 126 mL/min (70-130); Calcium 9.4 mg/dL (7.8-10.44); Carbon Dioxide 32 mmol/L (22-29); Chloride 96 mmol/L (98-107); Estimated GFR-MDRD Greater than 90; Glucose 103 mg/dL (70-105); Potassium 3.5 mmol/L (3.5-5.1); Sodium 138 mmol/L (136-145)
[2017-11-01 06:34] LABS: Band 3 % (5-11); Eosinophils 1 % (0-10); Hemoglobin 10.8 g/dL (14.0-18.0); Lymphocytes 16 % (21-51); MDiff Complete? YES; Mean Corpuscular HGB CONC 30.2 g/dL (32.0-36.0); Mean Corpuscular Hemoglobin 25.5 pg (27.0-31.0); Mean Corpuscular Volume 84.4 fl (80.0-94.0); Mean Platelet Volume 6.4 fL (7.4-10.4); Neutrophil 79 % (42-75); Platelet Count 441 thou/uL (130-400); RBC Distribution Width 15.8 % (11.5-14.5); Red Blood Cell (RBC) Count 4.26 mill/uL (4.70-6.10); White Blood Cell (WBC) Count 14.2 thou/uL (4.8-10.8)
[2017-11-01] MEDS: Phenergan/Codeine 10-6.25mg/5ml UDCUP PO SCH ×4 (09:00→21:00)
[2017-11-01] MEDS: Docusate 100 MG CAP PO SCH ×2 (09:00→20:30)
[2017-11-01] MEDS: Famotidine 20 MG TAB PO SCH ×2 (09:00→20:30)
[2017-11-01] MEDS: Enoxaparin Sodium 40 MG/0.4 ML SYRINGE SC SCH (09:01)
--- NOTE | 2017-11-01 14:49 | CON ---
DATE OF CONSULTATION: 11/01/2017 REFERRING PROVIDER: Dr. Jarett Taylor. REASON FOR CONSULTATION: Confusion. HISTORY OF PRESENT ILLNESS: Mr. Otoole is a pleasant 57-year-old male, who has been consulte d for evaluation of altered mental status. History is obtained from , who was present at bedside . reports that the patient has been diagnosed with metastatic lung cancer just recently since t his past Friday. He has been having increasing episodes of confusion. He is having auditory and vis ual hallucinations. He also does not know where his whereabouts are. 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 He was also acting in a bizarre behav ior, which prompted her to talk to his primary care provider and was being admitted for further mojgan p. He also had been complaining of having increasing episodes of difficulty with breathing and chest pain. He is also complaining of having increasing episodes of generalized weakness and difficulty w ith balance. He has been more stumbling and off balance while walking. There has not been any fever or chills. 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 PAST SURGICAL HISTORY: Significant for bronchoscopy, mediastinoscopy, and lymph node biopsy. SOCIAL HISTORY: He is . He lives at home with his . He does not smoke cigarettes, drink alcohol, or use illicit drugs. FAMILY HISTORY: Noncontributory. CURRENT MEDICATIONS: Please review MAR. ALLERGIES: No known drug allergies. REVIEW OF SYSTEMS: As mentioned in the HPI, otherwise negative. PHYSICAL EXAMINATION: VITAL SIGNS: Blood pressure of 145/76, pulse of 104, temperature of 98.6, respirations of 24, O2 sat s of 94% on 3-1/2 liter nasal cannula. GENERAL: Well-developed, well-nourished male, in no apparent distress. RESPIRATORY: Clear to auscultation bilaterally. CARDIOVASCULAR: Regular rate and rhythm. NEUROLOGIC: Mental status: The patient is awake, alert, oriented x2. He is able to state his name, first and last name. He is able to state current year, but is wrong in his answer for current month and not able to answer current date and day. He is able to follow simple commands. Speech and lang uage: Fluent speech. Cranial nerves: Pupils are 3 mm and reactive. Visual oreilly are intact. Ext ernal muscles are intact. No nystagmus noted. Face is symmetric. Tongue and uvula midline. Motor exam showed normal tone and bulk with a 5/5 strength in both upper and lower extremities. Sensory: Sensation is intact and symmetric. Deep tendon reflexes 2+ reflexes in both upper and lower extremit ies. Babinski: Plantar responses flexion bilaterally. Coordination intact to [id number] an d finger tapping bilaterally. LABORATORY DATA: Reviewed, which included CBC, CMP, urinalysis, and ABG, which is significant for WB C of 14.2, hemoglobin 10.8, hematocrit of 35.9, platelet count of 441, AST of 99, ALT of 87, blood ga s with a pH of 7.45, pCO2 of 41.6, pO2 of 89.9, and bicarbonate of 29.1. IMAGING STUDIES: CT head without contrast was reviewed, which showed no acute intracranial abnormali ty. MRI brain with and without contrast done on 10/02/2017, which per Radiology, showed no acute int racranial abnormality. IMPRESSION: 1. Altered mental status, likely toxic metabolic encephalopathy. 2. Recent diagnosis of metastatic lung cancer. Mr. Otoole is a pleasant 57-year-old male, who presented with a 1-week history of confusion. He is having auditory and visual hallucinations. At this time, the likely etiology includes toxic m etabolic encephalopathy, hypoxic encephalopathy, metastatic brain disease. I would recommend obtaini ng MRI brain with and without contrast. I would recommend continuing current medical management and supportive care. I will follow the results of MRI and provide further recommendations at that time. Thank you for consultation.
--- NOTE | 2017-11-01 15:06 | PDOC.PN ---
- Subjective Encounter Start Date: 11/01/17 Encounter Start Time: 15:05 No complaint. Alert, confused. - Objective Resuscitation Status: Resuscitation Status FULL:Full Resuscitation Vital Signs & Weight: Vital Signs (12 hours) Temp Pulse Resp BP Pulse Ox 11/01/17 14:06 99 20 86 L 11/01/17 08:00 98.6 F 104 H 24 H 94 L 11/01/17 07:49 98.6 F 104 H 24 H 145/76 H 94 L 11/01/17 07:35 96 11/01/17 07:33 104 H 18 96 Weight Admit Weight 208 lb Weight 207 lb 14.334 oz I&O: 10/31/17 11/01/17 11/02/17 06:59 06:59 06:59 Intake Total 1500 630 Balance 1500 630 Result Diagrams: 11/01/17 05:27 11/01/17 05:27 Phys Exam - Physical Examination HEENT: sclera anicteric Neck: no JVD Respiratory: clear to auscultation bilateral Cardiovascular: RRR Gastrointestinal: soft Musculoskeletal: no edema Neurological: moves all 4 limbs Dx/Plan (1) Diastolic dysfunction Code(s): I51.9 - HEART DISEASE, UNSPECIFIED Status: Acute (2) Hypercalcemia of malignancy Code(s): E83.52 - HYPERCALCEMIA Status: Acute Comment: resolverd. (3) Pleural effusion, left Code(s): J90 - PLEURAL EFFUSION, NOT ELSEWHERE CLASSIFIED Status: Acute Comment: ?malignant. (4) Pulmonary vascular congestion Code(s): R09.89 - OTH SYMPTOMS AND SIGNS INVOLVING THE CIRC AND RESP SYSTEMS Status: Acute (5) Transaminitis Code(s): R74.0 - NONSPEC ELEV OF LEVELS OF TRANSAMNS & LACTIC ACID DEHYDRGNSE Status: Acute (6) Altered mental status Code(s): R41.82 - ALTERED MENTAL STATUS, UNSPECIFIED Status: Acute Plan: f/u MRI.. Comment: Seen by neurology.. - Plan -: Continue current management.. -: Home soon. * .
[2017-11-01] MEDS: Senokot 8.6 MG TAB PO SCH (20:30)
[2017-11-01 22:46] LABS: Body Fluid Source THORACENTESIS FLD; Clarity Cloudy/Turbid (Clear)
[2017-11-01 22:47] LABS: BF Color Red; RBC Background Count 0.005; Tube # EDTA; WBC/NonHematic-Auto 6190 /cumm
[2017-11-01 22:48] LABS: RBC Count-Automated 47000 /cumm
--- NOTE | 2017-11-01 23:51 | CON ---
DATE OF CONSULTATION: 11/01/2017 SERVICE: Pulmonary Medicine. REASON FOR CONSULTATION: Pleural effusion. HISTORY OF PRESENT ILLNESS: The patient is a 57-year-old white male with past medical history significant for metastatic squamous cell carcinoma of the lung. This was newly diagnosed. He ended up developing a pleural effusion over the last month. We were called for thoracentesis. He currently denies any shortness of breath, fevers or chills. He is coughing a little bit, but not bringing up any sputum. He has been in the hospital for the past 5 days now. He remains on some antibiotics, and nebulized medications. He is also on some cough suppressants. PAST MEDICAL HISTORY: Squamous cell carcinoma of the lung. PAST SURGICAL HISTORY: Mediastinoscopy with hilar node biopsy. SOCIAL HISTORY: He lives at home. He is . He has no history of alcohol , tobacco or illicit drug use. He denies any exposure to chemicals, dust asbestos or tuberculosis. FAMILY HISTORY: Noncontributory. ALLERGIES: No known drug allergies. MEDICATIONS LIST: List of his inpatient medications were reviewed. No specific updates were made at this time. REVIEW OF SYSTEMS: General, head, eyes, nose, throat, cardiovascular, respiratory, GI, , musculoskeletal, neurologic and skin is negative except as mentioned in the HPI. PHYSICAL EXAMINATION: VITAL SIGNS: Afebrile with a T-max of 99.1, pulse 117, blood pressure 144/87, respirations 16, saturation 95% on room air, but he was later put on 3 liters nasal cannula because he desaturated a little bit. HEENT: Normocephalic, atraumatic. Sclerae are white, conjunctivae pink. Oral and nasal mucosa is moist without lesions. LUNGS: Decent air entry. Slightly reduced air entry on the left. There is no prolonged expiratory phase appreciated. I do not hear any wheezing, rhonchi, or crackles at this time. HEART: Normal rate, regular. ABDOMEN: Soft, nontender, nondistended. Bowel sounds positive. MUSCULOSKELETAL: No cyanosis or clubbing. No pitting in the bilateral lower extremities. NEUROLOGIC: Grossly nonfocal. LABORATORY DATA: WBC 14.2, hemoglobin 10.8, platelets 441,000. Neutrophils are 79% with 3% bands. A pH 7.45, pCO2 of 41 on a VBG. Basic metabolic profile is otherwise unremarkable. Bicarbonate is stable at 32. Liver function studies were previously down trending with an AST and ALT of 99 and 87 , respectively. Urinalysis is unremarkable. Pleural fluid pH 7.346. Influenza A and B is unremarkable. Blood cultures x2, urine culture also negative. IMAGIN. CT of the brain demonstrates no acute intracranial abnormality. 2. His chest x-ray demonstrates right-sided pleural effusion. The right lung is without effusion. 3. Echocardiogram demonstrates diastolic dysfunction. The ejection fraction is normal. ASSESSMENT: 1. Acute hypoxic respiratory failure. 2. Pleural effusion on the left. 3. Squamous cell carcinoma of the lung, DISCUSSION AND PLAN: We will move forward with a thoracentesis for diagnostic and therapeutic purposes. If he derives benefit from this procedure from a respiratory standpoint, and malignant cells are identified in the bronchoscopy, he could be considered for a PleurX catheter in the future. That being said, we will do this procedure primarily to rule out malignant effusion, and infection. Pulmonary Critical Care will continue to follow while the patient remains in house. 70 minutes have been devoted to this patient in various activities. I personally reviewed all imaging studies and laboratory data noted within this document. For greater than fifty percent of this time, I was interacting with the patient at the bedside or coordinating care with the care team. For the remainder of the time I was immediately available to the patient in the hospital unit. FRANCISCO JAVIER
--- NOTE | 2017-11-02 00:38 | OP ---
DATE OF SERVICE: 11/01/2017 SERVICE: Pulmonary Medicine. PROCEDURE: Left-sided pleural drainage with catheter insertion under ultrasound guidance. CONSENT: The risks and benefits of this procedure were explained to the patient. All questions were answered and alternative options explained. STAFF PHYSICIAN: Shayan Leroy M.D. MEDICATIONS USED: Lidocaine 1% without epinephrine, a total quantity 10 mL. PREPROCEDURE DIAGNOSES: 1. Pleural effusion. 2. Acute hypoxic respiratory failure. POSTPROCEDURE DIAGNOSES: 1. Pleural effusion. 2. Acute hypoxic respiratory failure. DESCRIPTION OF PROCEDURE: A timeout was performed by the procedure team and patient. The patient wa s positively identified using name and date of . The procedure site was marked. Vital sign mon itoring was accomplished by noninvasive hemodynamic monitoring, pulse oximetry, and telemetry. In th e seated position, the left posterior hemithorax was examined using ultrasound probe. The diaphragm pleural fluid was easily identified. The skin was prepped and draped in sterile fashion and anesthet ized with 1% lidocaine without epinephrine. A finder needle was inserted in the pleural space with r eturn of serosanguineous, viscous pleural fluid. A pleural drainage catheter was then inserted in th e same location, a total quantity of 1000 mL of pleural fluid was withdrawn by syringe pump technique . A sample was sent for analysis. Evacuation was terminated because the intrapleural pressures arri franklin at -20 cm of pleural fluid, measured by manometry. Intact catheter was withdrawn on exhalation a nd a sterile dressing was applied. The patient had stable vitals throughout the entire procedure. ESTIMATED BLOOD LOSS: Less than 2 mL. COMPLICATIONS: None.
[2017-11-02 00:59] LABS: BF Segmented Neutrophils 69 %; Cell Count Non Hematic 22 %; Lymphocytes 9 %
[2017-11-02] MEDS: Ondansetron ODT 4 MG TAB PO PRN (03:19)
[2017-11-02] MEDS: Furosemide 20 MG/2 ML VIAL SLOW IVP SCH ×2 (06:18→14:39)
[2017-11-02] MEDS: Enoxaparin Sodium 40 MG/0.4 ML SYRINGE SC SCH (09:31)
[2017-11-02] MEDS: Phenergan/Codeine 10-6.25mg/5ml UDCUP PO SCH ×2 (09:31→14:31)
[2017-11-02] MEDS: Docusate 100 MG CAP PO SCH (09:31)
[2017-11-02] MEDS: Famotidine 20 MG TAB PO SCH (09:31)
--- NOTE | 2017-11-02 09:49 | MRI ---
MRI BRAIN WITH AND WITHOUT CONTRAST: DATE: 11/02/17. HISTORY: A 57-year-old male with altered mental status: confusion. Newly-diagnosed lung cancer. Rule out bra in metastasis. TECHNIQUE: Multiple sequences obtained in axial, sagittal, and coronal planes; pre and post IV injection of gado linium-based contrast agent: MultiHance. FINDINGS: The ventricles are normal in size and configuration. There is no restricted diffusion, abnormal intr aaxial enhancement, mass, midline shift or any other mass effect, recent intraaxial hemorrhage, or ex traaxial fluid collection. There are many scattered punctate T2-hyperintensities in the cerebral whit e matter consistent with mild chronic ischemic white matter changes due to mild microvascular atheros clerosis. There is no evidence of intracranial metastasis. There is no interval change overall comp ared to 10/02/17. IMPRESSION: 1. Mild chronic ischemic white matter changes. 2. Otherwise negative. abner[] POS: KIYA
[2017-11-02 12:09] VITALS: BP 122/75; TEMP 98.2
--- NOTE | 2017-11-02 13:19 | PDOC.PN ---
- Subjective Encounter Start Date: 11/02/17 Encounter Start Time: 12:45 -: No specific complaint. -: Feels better. - Objective Resuscitation Status: Resuscitation Status FULL:Full Resuscitation Vital Signs & Weight: Vital Signs (12 hours) Temp Pulse Resp BP Pulse Ox 11/02/17 12:08 98.2 F 107 H 20 122/75 93 L 11/02/17 08:00 98.6 F 103 H 18 92 L 11/02/17 07:31 98 11/02/17 07:29 103 H 18 98 11/02/17 07:11 98.2 F 104 H 28 H 127/86 92 L Weight Admit Weight 208 lb Weight 207 lb 14.334 oz I&O: 11/01/17 11/02/17 11/03/17 06:59 06:59 06:59 Intake Total 630 1430 Balance 630 1430 Result Diagrams: 11/01/17 05:27 11/01/17 05:27 Phys Exam - Physical Examination Constitutional: NAD HEENT: sclera anicteric Neck: no JVD Respiratory: no rales Cardiovascular: RRR Gastrointestinal: soft Musculoskeletal: no edema Neurological: moves all 4 limbs Dx/Plan (1) Diastolic dysfunction Code(s): I51.9 - HEART DISEASE, UNSPECIFIED Status: Acute (2) Hypercalcemia of malignancy Code(s): E83.52 - HYPERCALCEMIA Status: Acute Comment: resolverd. (3) Pleural effusion, left Code(s): J90 - PLEURAL EFFUSION, NOT ELSEWHERE CLASSIFIED Status: Acute Comment: ?malignant. (4) Pulmonary vascular congestion Code(s): R09.89 - OTH SYMPTOMS AND SIGNS INVOLVING THE CIRC AND RESP SYSTEMS Status: Acute (5) Transaminitis Code(s): R74.0 - NONSPEC ELEV OF LEVELS OF TRANSAMNS & LACTIC ACID DEHYDRGNSE Status: Acute (6) Altered mental status Code(s): R41.82 - ALTERED MENTAL STATUS, UNSPECIFIED Status: Acute Comment: Seen by neurology.. - Plan -: Stable. -: Brain MRI shows no acute finding . -: Home today. * .
--- NOTE | 2017-11-02 13:58 | DIS ---
ADMITTING DATE: 10/28/2017 DISCHARGE DATE: 11/02/2017 DIAGNOSTIC: Congestive heart failure with diastolic dysfunction, hypercalcemia of malignancy, left p leural effusion, pulmonary vascular congestion, transaminitis, altered mental status. WHAT JOB TITLES MEAN: Dr. Cai, Dr. Mccormack, and Dr. Leroy. PROCEDURE: Echocardiogram, chest x-ray, head CT, brain CT, thoracentesis COURSE OF HOSPITALIZATION: Uncomplicated. Responded to management. Pain has been decreased. He is feeling better. He is to follow up with his primary care physician and also with Dr. Leroy, Dr. Amparo boogie, and Dr. Cai for 2 days. PHYSICAL EXAMINATION: Please refer to patient medical record, progress note. DISCHARGE MEDICATIONS: Please see discharge medication reconciliation sheet. Discharge time 32 minutes. He is to follow up with the marine diesel mechanic and oncologist and also neurolo gist as mentioned earlier. Patient is clinically stable at this time.
[2017-11-02] MEDS: traMADol HCl 50 MG TAB PO PRN (14:36)
== END 2017-11-02 14:51 | disposition home or self-care (01) | DRG 180 ==
LOC: ERS 21:24 → ONC 10-28 00:03
PROVIDERS: ADMIT Internal Medicine; ATTEND Internal Medicine
PROC: 0W9B3ZZ Drainage of Left Pleural Cavity, Percutaneous Approach (ICD-10-PCS; principal; 2017-11-01)
DX: C34.12 Malignant neoplasm of upper lobe, left bronchus or lung (principal); J96.21 Acute and chronic respiratory failure with hypoxia; G92 Toxic encephalopathy; I50.33 Acute on chronic diastolic (congestive) heart failure; C77.9 Secondary and unspecified malignant neoplasm of lymph node, unspecified; I11.0 Hypertensive heart disease with heart failure; C79.51 Secondary malignant neoplasm of bone; J91.8 Pleural effusion in other conditions classified elsewhere; E83.52 Hypercalcemia; R74.0 Nonspecific elevation of levels of transaminase and lactic acid dehydrogenase [LDH]; F41.9 Anxiety disorder, unspecified; D63.0 Anemia in neoplastic disease; E78.5 Hyperlipidemia, unspecified; Z87.891 Personal history of nicotine dependence
CPT/HCPCS: 36415; 70450; 70553; 71045; 80048; 80053; 81003; 82140; 82330; 82803; 82945; 83605; 83615; 83735; 83880; 83986; 84100; 84157; 85025; 85060; 87040; 87070; 87086; 87116; 87205; 87206; 88112; 88305; 89051; 93306; 94640; 96361; 96365; A4216; J1100; J1200; J1650; J1940; J1956; J2405; J2469; J3489; J7050; J7611; J7620; J9045; J9267; Q0162; S0028

== ENCOUNTER 2017-11-14 21:51 | Inpatient (IN) | payer SELFPAY ==
[2017-11-15] MEDS ORDERED: Ondansetron ODT 4 MG TAB SL PRN (00:57)
[2017-11-15] MEDS ORDERED: Ondansetron HCl/PF 4 MG/2 ML Vial IVP PRN (00:57)
[2017-11-15] MEDS ORDERED: Acetaminophen 325 MG TAB PO PRN (00:57)
[2017-11-15 01:10] VITALS: BMI 26.9
[2017-11-15] MEDS ORDERED: Albuterol Sulfate 1.25 MG/3 ML NEB ONE (02:52)
[2017-11-15] MEDS: ALPRAZolam 0.25 MG TAB PO PRN ×2 (03:39→12:26)
[2017-11-15] MEDS: Cefepime 1 GM, Admixture Fee 1 EACH in Sodium Chloride 0.9% 10 ML SLOW IVP SCH ×2 (04:45→16:55)
[2017-11-15] MEDS: Vancomycin HCl 1.25 GM in Sodium Chloride 0.9% 250 ML 250 ML IVPB SCH ×3 (08:15→21:28)
[2017-11-15] MEDS: Albuterol Sulfate 1.25 MG/3 ML NEB NEB SCH ×3 (08:28→22:44)
[2017-11-15] MEDS: Phenergan/Codeine 10-6.25mg/5ml UDCUP PO SCH ×4 (08:44→21:29)
[2017-11-15] MEDS ORDERED: Cefepime 1 GM in Sodium Chloride 0.9% 100 ML IVPB SCH (09:00)
--- NOTE | 2017-11-15 11:47 | HP ---
ONCOLOGIST: Clair Snyder M.D. CHIEF COMPLAINT: Fevers and chills. HISTORY OF PRESENT ILLNESS: This is a 57-year-old male who was recently diagnosed with lung cancer a nd undergoing chemotherapy and radiation treatments who recently developed fevers, chills, and increa sed heart rate at home. He was sent to our facility from [facility]. He had blood cultures that a re pending from that facility. At the time of my evaluation, the patient states that his breathing is somewhat better. He is on oxy gen nasal cannula as needed. The patient states he feels somewhat anxious and has not received his d aily Ativan yet. Patient denies any further fevers or chills since arriving to the emergency departm ent. In the emergency department, patient had received cefepime and vancomycin and had a chest x-ray compl eted which demonstrates opacification of the left side of the right lung. REVIEW OF SYSTEMS: As per HPI. CONSTITUTIONAL: Fevers and chills as noted above. No significant w eight change of the patient is noted in the last 2 weeks. HEENT: No new headaches, no new dizziness , no new lightheadedness, no new vision changes. CARDIOVASCULAR: Feeling that his heart was racing. No chest pain or chest pressure. No left sided arm numbness or tingling. RESPIRATORY: Shortness of breath as per noted above. Dyspnea with exertion. No new cough. No new postnasal drip. ABDOMEN : No abdominal pain, no nausea, no vomiting, decreased appetite. Generally speaking, no diarrhea, n o constipation. GENITOURINARY: No dysuria. MUSCULOSKELETAL: No new myalgias or arthralgias. 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 PAST SURGICAL HISTORY: Status post mediastinoscopy, bronchoscopy and lymph node biopsy. HOME MEDICATIONS: Please see EMR for full details. Patient denies any recent changes to his home me dication regimen. FAMILY HISTORY: No known history of lung cancer, heart disease, pulmonary disease. SOCIAL HISTORY: Denies any tobacco, alcohol or illicit drug use. His significant other accompanies him today. He indicates that she would be his medical decision maker if he is unable to make his own medical decision. He wishes to be FULL CODE at this point in time. PHYSICAL EXAMINATION: VITAL SIGNS: Temperature 98.4, heart rate of 92, respirations 20, satting 96% on 3 liters nasal marixa chapis, and blood pressure 135/80. GENERAL: Patient is awake, alert, conversant, in no acute distress, oriented x3. HEENT: Moist mucous membranes. Equal ocular motions are intact. Normocephalic, atraumatic. CARDIOVASCULAR: S1 and S2. Pulses 2+ bilateral upper extremities. No pitting pedal edema. RESPIRATORY: No breath sounds on the right with reasonable air movement and aeration of the right si de. IMAGING DATA: Chest x-ray "interval development of complete opacification of the left hemithorax. T his may be on the basis of large left pleural effusion, but underlying mass, lesion or infectious pne umonitis is a possibility. Follow up CT examination of the chest is advised as clinically warranted as the underlying mass lesion within the left hemothorax is a significant concern." LABORATORY DATA: WBC 14.4, hemoglobin 9.5, hematocrit 28.7, platelets 565. PT 15.9, INR 1.3. Sodiu m 137, potassium 4.0, chloride 102, bicarbonate 24, BUN 11, creatinine 0.68, glucose 109, lactic acid 1.4, calcium 8.7, total bilirubin 0.3, AST 37, ALT 34, alkaline phosphatase 143, albumin 3.0, total protein 6.6, lipase 31. ASSESSMENT AND PLAN: A 57-year-old male presenting with fevers, chills, tachycardia in the setting o f known metastatic cancer. 1. Fevers and chills with increased heart rate and opacification of the left pulmonary parenchyma. Empiric cefepime and vancomycin for concern regarding pneumonia and sepsis in the setting of leukocyt osis. IV fluids as above. Pending blood cultures from [facility]. Would obtain a routine CT to d ifferentiate between where he may have pleural effusion versus relative to lung mass. I appreciate p monary consultation. 2. Metastatic lung cancer, squamous cell carcinoma of the lung. Please see discussion above. It ap pears that the patient recently also had pleural effusion of the same lung. On 11/02/2017, underwent left-sided pleural drainage with a catheter insertion under ultrasound guidance. 3. Diet as tolerated. 4. Activity as tolerated. 5. Deep venous thrombosis prophylaxis. Thank you for asking me to care for the patient. If you have any questions or concerns, contact me a t [facility].
[2017-11-15] MEDS: Milk Of Magnesia 30 ML UDCUP PO PRN ×2 (12:30→22:20)
[2017-11-15 13:16] LABS: #Basophils 0.1 thou/uL (0.0-0.2); #Eosinphils 0.1 thou/uL (0.0-0.7); #Lymphocytes 1.7 thou/uL (1.20-3.40); #Monocytes 1.4 thou/uL (0.11-0.59); #Neutrophils 12.1 thou/uL (1.40-6.50); %Basophils 0.4 % (0.0-1.0); %Eosinophils 0.5 % (0.0-10.0); %Lymphocytes 10.9 % (21.0-51.0); %Monocytes 9.1 % (0.0-10.0); %Neutrophils 79.2 % (42.0-75.0); Hemoglobin 9.4 g/dL (14.0-18.0); Mean Corpuscular HGB CONC 30.2 g/dL (32.0-36.0); Mean Corpuscular Hemoglobin 25.3 pg (27.0-31.0); Mean Corpuscular Volume 83.6 fl (80.0-94.0); Mean Platelet Volume 5.5 fL (7.4-10.4); Platelet Count 523 thou/uL (130-400); RBC Distribution Width 16.6 % (11.5-14.5); Red Blood Cell (RBC) Count 3.73 mill/uL (4.70-6.10); White Blood Cell (WBC) Count 15.3 thou/uL (4.8-10.8)
[2017-11-15 13:25] LABS: Anion Gap 16 mmol/L (10-20); BUN (Urea Nitrogen) 10 mg/dL (8.4-25.7); Calc. Creatinine Clearance 171 mL/min (70-130); Calcium 8.4 mg/dL (7.8-10.44); Carbon Dioxide 18 mmol/L (22-29); Chloride 107 mmol/L (98-107); Estimated GFR-MDRD Greater than 90; Glucose 103 mg/dL (70-105); Sodium 137 mmol/L (136-145)
[2017-11-15] MEDS: ALPRAZolam 0.25 MG TAB PO SCH ×2 (14:46→21:29)
--- NOTE | 2017-11-15 14:53 | PDOC.PN ---
- Subjective Encounter Start Date: 11/15/17 Encounter Start Time: 14:51 Subjective: seen and examined in significant respiratory distress - Objective Vital Signs & Weight: Vital Signs (12 hours) Temp Pulse Resp BP Pulse Ox 11/15/17 12:00 95 11/15/17 08:29 99 11/15/17 08:28 92 20 99 11/15/17 08:00 98.4 F 92 20 96 11/15/17 07:50 97.4 F L 92 24 H 135/80 100 11/15/17 04:45 148/78 H 11/15/17 03:39 97.5 F L 97 20 170/95 H 99 11/15/17 03:03 94 L 11/15/17 02:53 94 L Weight Weight 198 lb 15.828 oz I&O: 11/14/17 11/15/17 11/16/17 06:59 06:59 06:59 Intake Total 250 600 Balance 250 600 Result Diagrams: 11/15/17 13:01 11/15/17 13:01 Phys Exam - Physical Examination Constitutional: NAD HEENT: PERRLA, moist MMs, sclera anicteric, TM's clear, oral pharynx no lesions Neck: no nodes, no JVD, supple, full ROM Respiratory: no wheezing absent breath sounds --LT hemithorax Cardiovascular: RRR, no significant murmur, no rub Gastrointestinal: soft, non-tender, no distention, positive bowel sounds Musculoskeletal: no edema, pulses present Dx/Plan (1) Metabolic acidosis Code(s): E87.2 - ACIDOSIS Status: Acute (2) Acute respiratory failure with hypoxia Code(s): J96.01 - ACUTE RESPIRATORY FAILURE WITH HYPOXIA Status: Acute (3) Dyspnea Code(s): R06.00 - DYSPNEA, UNSPECIFIED Status: Acute Qualifiers: (4) Pleural effusion, left Code(s): J90 - PLEURAL EFFUSION, NOT ELSEWHERE CLASSIFIED Status: Acute Comment: ?malignant. 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
[2017-11-15] MEDS ORDERED: Furosemide 40 MG/4 ML VIAL SLOW IVP SCH (15:00)
[2017-11-15] MEDS: traMADol HCl 50 MG TAB PO PRN (15:02)
--- NOTE | 2017-11-15 15:51 | CT ---
NONCONTRAST CHEST CT SCAN: 11/15/17 HISTORY: 57-year-old male with history of pleural effusion. History of lung cancer with chest pain and shortne ss of breath. COMPARISON: Abdomen and pelvic CT scan from 10/11/17 and chest x-ray from 10/04/17. The left hemithorax is entirely opacified on today's study. Again noted is a large left upper lobe yfn ng mass with associated in addition complete atelectasis of the left lung. There is adenopathy within the mediastinum including right paratracheal adenopathy up to 2.2 cm in short axis. There is a large associated left pleural effusion. There are some abnormally enlarged lymph nodes within the pericard ial sac. Multiple lytic bone lesions are noted, particularly in the right ribs, axial skeleton and ma nubrium of the sternum with multiple right sided rib pathologic fractures. 0.8 cm diameter pleural ba sed nodule in the posterior right lower lobe superiorly as well as some other small scattered right s ided pulmonary nodules worrisome for metastasis. There is abnormal fat stranding in the mesentery of the abdomen raising the possibility of some omental disease. Small right pleural effusion. IMPRESSION: Abnormal total opacification of the left hemithorax consistent of large pleural effusion, left upper lobe lung mass, and complete atelectasis of the left lung. Extensive mediastinal adenopathy. Right si ded pulmonary metastasis. Extensive bone metastasis with multiple right sided pathologic rib fracture s. Small stable right pleural based nodule in the superior segment of the right lower lobe. POS: [facility]
[2017-11-15 17:06] LABS: Pleural Fluid, Protein 3.4 g/dL
--- NOTE | 2017-11-15 17:28 | CON ---
DATE OF CONSULTATION: 11/15/2017 REASON FOR CONSULTATION: Lung cancer. HISTORY OF PRESENT ILLNESS: Mr. Otoole is a pleasant 57-year-old male, who was diagnosed with a squamo us cell carcinoma of the left upper lobe in 10/2017. He had a large volume distant metastasis in the bones and retroperitoneal lymph nodes. He is a stage IV. He was started on chemotherapy consisting of carboplatin and Taxol. His first cycle was on 10/29/2017. He was seen in our clinic on 11/13. He was complaining of cough and pain, but had no fever. Yesterday, he called the clinic with complai nts of temperature as high as 102 and increasing shortness of breath. He was sent to the emergency r oom for evaluation. A chest x-ray showed opacification of the left side of the right lung. He was a dmitted for fever and possible pneumonia. He did have a CT of the chest, which showed a large pleura l effusion. He has been tapped in the past for an effusion. Dr. Llamas has seen the patient and is pe rforming a thoracentesis. He has been pancultured and started on IV antibiotics and oxygen. PAST MEDICAL HISTORY: 1. Stage 4 squamous cell carcinoma of the lung. 2. Hyperlipidemia. 3. Hypertension. PAST SURGICAL HISTORY: CME. ALLERGIES: No known drug allergies. HOME MEDICATIONS: 1. Albuterol p.r.n. 2. Xanax 0.25 mg p.r.n. 3. Tramadol p.r.n. pain. 4. Promethazine cough syrup p.r.n. FAMILY HISTORY: His father had unknown type of cancer. SOCIAL HISTORY: , has 4 children, lives with his spouse. No alcohol, tobacco, or illicit batsheva g use. He is a former smoker. REVIEW OF SYSTEMS: Constitutional: Positive for fever, chills, night sweats. Eyes: No blurred or double vision. ENT: No pain, hoarseness, sore throat, or dysphagia. Cardiovascular: No chest pain , palpitations, syncope. Respiratory: Positive for shortness of breath, dyspnea on exertion and cou gh. GI: No nausea, vomiting, diarrhea, constipation, or abdominal pain. Genitourinary: No dysuria or hematuria. Musculoskeletal: Positive for joint and back pain. Skin: No rash or pruritus. Hem atologic: No bleeding, bruising, or clotting. Neurologic: No weakness, headache, numbness, tinglin g, or seizure activity. Psychiatric: Positive for anxiety and depression. PHYSICAL EXAMINATION: VITAL SIGNS: Temperature is 98.4, pulse is 96, respiratory rate is 24, BP is 135/80. He is 94% on 3 liters. GENERAL: A well-developed, well-nourished male, in no acute distress. HEENT: Normocephalic, atraumatic. Pupils equal and reactive to light. NECK: Supple. HEART: Regular rate and rhythm. LUNGS: Diminished in his left side. ABDOMEN: Soft, nontender, bowel sounds are positive. EXTREMITIES: There is no clubbing, cyanosis, or edema. SKIN: No rash. HEMATOLOGIC: No petechiae or purpura. NEUROLOGICAL: Nonfocal. PSYCHIATRIC: The patient is alert and oriented and appropriate. PERTINENT LABORATORY AND X-RAYS: Current WBCs are 15.3, hemoglobin 9.4, hematocrit 31.2, platelet co unt is 523,000. He has got 79% neutrophils, 10% lymphocytes. Sodium is 137, potassium 4.0, chloride 107, CO2 is 18, BUN is 10, creatinine 0.691, calcium is 8.4. Radiology per HPI. IMPRESSION: 1. Stage IV squamous cell carcinoma of the lung. 2. Fever with possible pneumonia. 3. Large left pleural effusion. DISCUSSION: Dr. Llamas is performing a thoracentesis. The patient has been started on antibiotics and will continue oxygen. Patient is due for chemotherapy next Friday if he still requires hospitali zation at the beginning of next week. We will give it as an inpatient here and we will provide suppo rtive care. Thank you for the consult.
[2017-11-15 17:37] LABS: BF Color Yellow; Body Fluid Source THORACENTESIS FLD; Clarity Hazy (Clear); RBC Background Count 0.006; RBC Count-Automated 17000 /cumm; Tube # EDTA; WBC/NonHematic-Auto 1500 /cumm
[2017-11-15 18:17] LABS: BF Segmented Neutrophils 12 %; Cell Count Non Hematic 6 %; Lymphocytes 82 %
[2017-11-15] MEDS: Benzonatate 100 MG CAP PO PRN (19:17)
--- NOTE | 2017-11-15 19:49 | CON ---
DATE OF CONSULTATION: 11/15/2017 HISTORY OF PRESENT ILLNESS: Beatrice Otoole is a 57-year-old gentleman who was recently diagnosed with m etastatic squamous cell carcinoma. He received one cycle of chemotherapy, presented last night with fever, chills, sweats, and apparently shortness of breath. They have been here since 10:00 last night, and at 2:00 in the afternoon, we were consulted regarding his pulmonary status. According to his , he was smoking up until August. He sees Dr. Gaytan in [place]. The patient is denying any chest pain, chills, or sweats. Denies any previous history of TB or bronc hial asthma. PAST MEDICAL HISTORY: Pertinent for mainly his tobacco abuse, recently diagnosed lung cancer. The p atient has hypertension. PAST SURGICAL HISTORY: None except for the recently diagnosed lung cancer following a by Dr. Amparo boudreaux. ALCOHOL: None. HOME MEDICATIONS: Tramadol, Tessalon Perles, albuterol. REVIEW OF SYSTEMS: Otherwise 10-point negative. ALLERGIES: None. PHYSICAL EXAMINATION: VITAL SIGNS: Sats 95% on 4 liters, respirations 24, temperature 98, pulse 96. CHEST: Reveals decreased breath sounds in left lung. Right lung unremarkable. CARDIAC: Sinus tachycardia. ABDOMEN: Soft. LABORATORY DATA: White count 15,000, H and H 9 and 30, platelet count 523. His electrolytes are nor mal. X-ray shows massive opacities in left lung with no shift of the mediastinum suggesting endobronchial disease along with pleural effusion. PLAN: A thoracentesis will be performed. In the meantime, broad-spectrum antibiotics empirically. We will notify Dr. Ferguson and Dr. Leroy. Further recommendations after above. PROCEDURE: Thoracentesis. After informed consent from the , the left posterior thorax cleaned with chlorhexidine, a 1% Xylo carlito was infiltrated into the right 9th intercostal space in the mid scapular line. The pleural cav ity was entered and with difficulty about 5 mL of fluid was removed. Thereafter, an 8-Japanese cathete r was inserted and about 1500 mL of sanguinous fluid was removed with difficulty. It was sent for cu lture and cytology. Patient tolerated procedure well.
--- NOTE | 2017-11-15 21:11 | RAD ---
PORTABLE UPRIGHT FRONTAL CHEST RADIOGRAPH 11/15/17 at 4:42 p.m. COMPARISON: 11/14/17 HISTORY: Evaluate chest following left sided thoracentesis. FINDINGS: The patient is status post left sided thoracentesis. There is a left sided pneumothorax present. Ther e is a component in the left upper lobe region measuring up to 1.6 cm in transverse dimension. There is also a component in the left lung base measuring 3.4 cm in transverse dimension. There is residual mass density in the left perihilar region and the left suprahilar region extending into the lateral aspect of the mid left hemithorax suggesting an underlying pulmonary parenchymal mass lesion on the b asis of malignancy. The right lung appears clear. Evaluation of the left lung mass in the osseous str uctures was better performed on CT examination of the chest also performed 11/15/17. IMPRESSION: Loculated left sided pneumothorax following thoracentesis with components in the apex and base. Mass density in the left hemithorax is suspicious for bronchogenic carcinoma. Pneumothorax called to the covering nurse on the oncology floorValorie at 4:45 p.m., 11/15/17. Code CR POS: [facility]
[2017-11-15] MEDS: Ibuprofen 600 MG TAB PO PRN (21:32)
[2017-11-16] MEDS: Cefepime 1 GM, Admixture Fee 1 EACH in Sodium Chloride 0.9% 10 ML SLOW IVP SCH ×2 (03:37→16:20)
[2017-11-16 05:22] LABS: #Basophils 0.1 thou/uL (0.0-0.2); #Eosinphils 0.1 thou/uL (0.0-0.7); #Monocytes 1.7 thou/uL (0.11-0.59); #Neutrophils 8.9 thou/uL (1.40-6.50); %Basophils 0.5 % (0.0-1.0); %Eosinophils 0.9 % (0.0-10.0); %Lymphocytes 15.7 % (21.0-51.0); %Monocytes 12.9 % (0.0-10.0); Hemoglobin 8.8 g/dL (14.0-18.0); Mean Corpuscular HGB CONC 31.4 g/dL (32.0-36.0); Mean Corpuscular Hemoglobin 25.9 pg (27.0-31.0); Mean Corpuscular Volume 82.5 fl (80.0-94.0); Mean Platelet Volume 5.4 fL (7.4-10.4); Platelet Count 549 thou/uL (130-400); RBC Distribution Width 16.4 % (11.5-14.5); Red Blood Cell (RBC) Count 3.39 mill/uL (4.70-6.10); White Blood Cell (WBC) Count 12.7 thou/uL (4.8-10.8)
[2017-11-16 05:42] LABS: Anion Gap 13 mmol/L (10-20); BUN (Urea Nitrogen) 10 mg/dL (8.4-25.7); Calc. Creatinine Clearance 165 mL/min (70-130); Calcium 8.3 mg/dL (7.8-10.44); Carbon Dioxide 24 mmol/L (22-29); Chloride 104 mmol/L (98-107); Estimated GFR-MDRD Greater than 90; Glucose 84 mg/dL (70-105); Potassium 3.5 mmol/L (3.5-5.1); Sodium 137 mmol/L (136-145)
[2017-11-16] MEDS: Vancomycin HCl 1.25 GM in Sodium Chloride 0.9% 250 ML 250 ML IVPB SCH ×3 (05:55→21:25)
[2017-11-16] MEDS: Ibuprofen 600 MG TAB PO PRN (07:29)
[2017-11-16] MEDS: Albuterol Sulfate 1.25 MG/3 ML NEB NEB SCH ×3 (08:02→22:42)
[2017-11-16] MEDS ORDERED: Fentanyl 250 MCG/5 ML VIAL ONE (09:37)
[2017-11-16] MEDS ORDERED: Lidocaine 1% (PF) 30 ML VIAL ONE (09:58)
[2017-11-16] MEDS ORDERED: Midazolam HCl 2 mg/2 ml Vial ONE (10:27)
[2017-11-16] MEDS ORDERED: Promethazine HCl 25 MG/ML VIAL IM PRN (11:12)
[2017-11-16] MEDS ORDERED: Ondansetron HCl/PF 4 MG/2 ML Vial IVP PRN (11:12)
[2017-11-16] MEDS ORDERED: Promethazine HCl 25 MG/ML VIAL SLOW IVP PRN (11:12)
[2017-11-16] MEDS: ALPRAZolam 0.25 MG TAB PO SCH ×3 (12:48→21:17)
[2017-11-16] MEDS: Phenergan/Codeine 10-6.25mg/5ml UDCUP PO SCH ×5 (12:49→21:17)
--- NOTE | 2017-11-16 13:16 | CON ---
DATE OF CONSULTATION: 11/16/2017 HISTORY OF PRESENT ILLNESS: Mr. Otoole is a 57-year-old gentleman, recently diagnosed with metastatic squamous cell carcinoma of the lung. He had metastasis in his mediastinal lymph nodes and also he hutchinson s a recurrent malignant left pleural effusion. This has been tapped twice with large volume taps eac h time. He has been on chemotherapy with carboplatin and Taxol beginning 10/29. I have been asked t o see him to place a left PleurX catheter. PAST MEDICAL HISTORY: 1. Stage IV squamous cell carcinoma of the lung. 2. Hypertension. 3. Hyperlipidemia. PAST SURGICAL HISTORY: Mediastinoscopy. ALLERGIES: None. MEDICATIONS AT HOME: Noted. SOCIAL HISTORY: He is . He has 4 children. He does not use alcohol, tobacco or other drugs. He is a former smoker. REVIEW OF SYSTEMS: Ten-point review of systems is performed and is negative except as above. PHYSICAL EXAMINATION: GENERAL: This is a well-developed, well-nourished man, resting comfortably in bed on my arrival. VITAL SIGNS: Height 6 feet. Weight is 198 pounds. Temperature is 97.9, pulse is 90 and regular, bl ood pressure 164/83. LUNGS: Clear bilaterally. HEART: Rhythm is regular. ABDOMEN: Soft and nontender. EXTREMITIES: There is no edema. ASSESSMENT AND PLAN: Recurrent malignant left pleural effusion. I have discussed PleurX catheter pl acement and its management and care at home with the patient and his and they are agreeable to christian gutierrez. It should be good to take care of this at home with some teaching.
--- NOTE | 2017-11-16 14:15 | PRG ---
DATE OF SERVICE: 11/16/2017 SUBJECTIVE: Xiang is doing better. OBJECTIVE: VITAL SIGNS: His sats are 100% on 4 liters, respiratory rate 18, and blood pressure 164/83. CHEST: Decreased breath sounds in left lung, right lung unremarkable. CARDIAC: Normal S1, S2. ABDOMEN: Soft, no masses. LABORATORY DATA: White count 12,000, H and H 8 and 28, platelet count 594. Electrolytes are normal. IMPRESSION: 1. Left pleural effusion, status post thoracentesis. 2. Bronchogenic carcinoma, squamous cell. 3. Loculated pneumothorax. PLAN: Small bore chest tube inserted today. Otherwise, the patient is doing much better. I will get a chest x-ray. We will follow.
[2017-11-16] MEDS: predniSONE 20 MG TAB PO SCH (14:25)
--- NOTE | 2017-11-16 14:37 | OP ---
DATE OF PROCEDURE: 11/16/2017 PREOPERATIVE DIAGNOSIS: Recurrent malignant left pleural effusion. POSTOPERATIVE DIAGNOSIS: Recurrent malignant left pleural effusion. PROCEDURE: Left PleurX catheter placement. SURGEON: Peña Delatorre M.D. ANESTHESIA: Lidocaine 1% for local with IV sedation provided by Joseph Weller CRNA. ESTIMATED BLOOD LOSS: Minimal. PROCEDURE IN DETAIL: After consent was obtained, the patient was brought to the operating room and p laced supine on the operating table. Appropriate anesthetic monitor was placed. IV sedation begun. Left chest wall was prepped and draped in usual sterile fashion. Chest wall was anesthetized with 1 % lidocaine. Percutaneous access of the thorax was obtained and guidewire passed. A tunneled cathet er was then passed from the midclavicular line around to the access site at the anterior axillary antoinette e. Catheter was placed through peelaway sheath into the thorax. Sheath was then peeled and removed. Catheter was connected to suction and 200 mL of fluid was evacuated. Catheter was secured with yuri k suture. Access site was closed with 0 Vicryl suture. Sterile dressings were applied. The patient was transferred to recovery room in stable condition.
[2017-11-16] MEDS ORDERED: Propofol 200 MG/20 ML VIAL ONE (15:28)
--- NOTE | 2017-11-16 15:50 | RAD ---
CHEST ONE VIEW PORTABLE: History: 57-year-old male with follow up left sided pneumothorax following thoracentesis. FINDINGS: There does appear to be a left chest tube in place with some prominent subcutaneous emphysema. There still appears to be a small residual left apical pneumothorax and some loculated pneumothorax in the left base. There is some residual pleural effusion/reaction but there has been marked decrease in the previously noted very large left hemithorax effusion. Large persistent mass in the left paramediasti nal and left hilar region. The right chest is stable. IMPRESSION: Left chest tube in place with decrease in the previously noted left sided pneumothorax with some resi dual loculated pneumothorax in the left base and some pleural air in the left apical region. Residual large left suprahilar mass. Continued short term follow up. POS: [facility]
[2017-11-16] MEDS: Milk Of Magnesia 30 ML UDCUP PO PRN (16:30)
[2017-11-16] MEDS ORDERED: Senokot 8.6 MG TAB PO PRN (16:33)
[2017-11-16] MEDS: Benzonatate 100 MG CAP PO PRN (18:29)
[2017-11-16] MEDS: Docusate 100 MG CAP PO SCH (21:17)
[2017-11-16] MEDS: Famotidine 20 MG TAB PO SCH (21:18)
[2017-11-16] MEDS: traMADol HCl 50 MG TAB PO PRN (21:21)
--- NOTE | 2017-11-16 21:21 | PDOC.PN ---
- Subjective Encounter Start Date: 11/16/17 Encounter Start Time: 13:00 Patient seen and examined. No new complaints. No overnight events. s/p PleurX catheter placement - Objective MAR Reviewed: Yes Vital Signs & Weight: Vital Signs (12 hours) Temp Pulse Resp BP Pulse Ox 11/16/17 15:04 108 H 20 11/16/17 15:00 103 H 24 H 110/66 98 11/16/17 13:00 103 H 24 H 110/66 98 11/16/17 12:20 97.5 F L 98 22 H 109/66 99 11/16/17 12:00 99 11/16/17 11:50 97.5 F L 109 H 24 H 132/80 99 Weight Weight 198 lb 15.828 oz I&O: 11/15/17 11/16/17 11/17/17 06:59 06:59 06:59 Intake Total 250 880 Balance 250 880 Result Diagrams: 11/16/17 05:00 11/16/17 05:00 Phys Exam - Physical Examination Constitutional: NAD Respiratory: no wheezing, no rhonchi Dec AE at bases with scat rales Cardiovascular: RRR, no rub Gastrointestinal: soft, non-tender, positive bowel sounds Musculoskeletal: no edema Dx/Plan - Plan DVT proph w/SCDs IMPRESSION: 1. Sepsis due to Pneumonia ?Pneumococcus / Acute hypoxic respiratory failure 2. Left pleural effusion s/p thoracentesis and PleurX catheter placement 3. Lung Ca 4. HTN / HLD 5. Other issues per previous notes PLAN: * Cont Cefepime / Vanc * AM labs * Ambulate * Oncology/Pulm/CT following * Cont to monitor Review of Systems - Review of Systems Constitutional: negative: fever, chills, sweats, weakness, malaise Cardiovascular: negative: chest pain, palpitations, orthopnea, paroxysmal nocturnal dyspnea, edema, light headedness - Medications/Allergies Allergies/Adverse Reactions: Allergies Allergy/AdvReac Type Severity Reaction Status Date / Time No Known Allergies Allergy Verified 11/15/17 01:20 Medications: Current Medications Hydrocodone Bitart/Acetaminophen ([place] 5/325) 1 tab PO Q4H PRN PRN Reason: Pain 1ST LINE Hydrocodone Bitart/Acetaminophen ([place] 5/325) 2 tab PO Q4H PRN PRN Reason: Pain 2ND LINE Albuterol Sulfate (Albuterol Sulfate) 1.25 mg NEB [id number] [facility] Last Admin: 11/16/17 15:04 Dose: 1.25 mg Alprazolam (Xanax) 0.25 mg PO HSPRN PRN PRN Reason: Insomnia Last Admin: 11/15/17 12:26 Dose: 0.25 mg Alprazolam (Xanax) 0.25 mg PO TID [facility] Last Admin: 11/16/17 21:17 Dose: 0.25 mg Benzonatate (Tessalon) 100 mg PO TIDPRN PRN PRN Reason: Cough Last Admin: 11/16/17 18:29 Dose: 100 mg Docusate Sodium (Colace) 100 mg PO BID [facility] Last Admin: 11/16/17 21:17 Dose: 100 mg Famotidine (Pepcid) 20 mg PO BID [facility] Last Admin: 11/16/17 21:18 Dose: 20 mg Cefepime HCl 1 gm/Miscellaneous Medication 1 each/ Sodium Chloride 10 mls @ 120 mls/hr SLOW IVP 0400,1600 [facility] Last Admin: 11/16/17 16:20 Dose: 10 mls Vancomycin HCl 1.25 gm/ Sodium (Chloride) 250 mls @ 166.667 mls/hr IVPB 0600, 1400,2200 [facility] Last Admin: 11/16/17 14:32 Dose: 250 mls Ibuprofen (Motrin) 600 mg PO Q4H PRN PRN Reason: Pain Last Admin: 11/16/17 07:29 Dose: 600 mg Magnesium Hydroxide (Milk Of Magnesium) 30 ml PO Q6H PRN PRN Reason: Constipation Last Admin: 11/16/17 16:30 Dose: 30 ml Miscellaneous Medication (Pharmacy To Dose) 1 each IVPB PRN PRN PRN Reason: Pharmacy to dose Prednisone (Prednisone) 40 mg PO QAM-WM [facility] Last Admin: 11/16/17 14:25 Dose: 40 mg Promethazine HCl/Codeine (Phenergan/Codeine Syrup) 5 ml PO QID [facility] Last Admin: 11/16/17 21:17 Dose: 5 ml Saccharomyces Boulardii (Florastor) 250 mg PO DAILY [facility] Senna (Senokot) 2 tab PO HSPRN PRN PRN Reason: Constipation Tramadol HCl (Ultram) 100 mg PO Q4H PRN PRN Reason: Pain Last Admin: 11/15/17 15:02 Dose: 100 mg
[2017-11-17] MEDS: Cefepime 1 GM, Admixture Fee 1 EACH in Sodium Chloride 0.9% 10 ML SLOW IVP SCH ×2 (03:40→16:29)
[2017-11-17] MEDS: traMADol HCl 50 MG TAB PO PRN (03:45)
[2017-11-17] MEDS: Vancomycin HCl 1.25 GM in Sodium Chloride 0.9% 250 ML 250 ML IVPB SCH (05:05)
[2017-11-17 05:53] LABS: #Lymphocytes 1.8 thou/uL (1.20-3.40); #Neutrophils 15.2 thou/uL (1.40-6.50); %Eosinophils 0.2 % (0.0-10.0); %Lymphocytes 9.7 % (21.0-51.0); %Monocytes 5.5 % (0.0-10.0); %Neutrophils 84.5 % (42.0-75.0); Mean Corpuscular HGB CONC 30.7 g/dL (32.0-36.0); Mean Corpuscular Hemoglobin 25.4 pg (27.0-31.0); Mean Corpuscular Volume 82.7 fl (80.0-94.0); Mean Platelet Volume 5.6 fL (7.4-10.4); Platelet Count 554 thou/uL (130-400); RBC Distribution Width 16.2 % (11.5-14.5); Red Blood Cell (RBC) Count 3.53 mill/uL (4.70-6.10)
[2017-11-17 06:25] LABS: Anion Gap 13 mmol/L (10-20); BUN (Urea Nitrogen) 12 mg/dL (8.4-25.7); Calc. Creatinine Clearance 160 mL/min (70-130); Calcium 8.9 mg/dL (7.8-10.44); Carbon Dioxide 25 mmol/L (22-29); Chloride 106 mmol/L (98-107); Estimated GFR-MDRD Greater than 90; Glucose 118 mg/dL (70-105); Magnesium 2.2 mg/dL (1.6-2.6); Potassium 5.3 mmol/L (3.5-5.1); Sodium 139 mmol/L (136-145)
[2017-11-17] MEDS: Milk Of Magnesia 30 ML UDCUP PO PRN ×2 (06:38→20:41)
[2017-11-17 07:06] LABS: Potassium 4.5 mmol/L (3.5-5.1)
[2017-11-17] MEDS: Albuterol Sulfate 1.25 MG/3 ML NEB NEB SCH ×3 (07:10→22:16)
[2017-11-17] MEDS: Phenergan/Codeine 10-6.25mg/5ml UDCUP PO SCH ×4 (08:04→20:41)
[2017-11-17] MEDS: Benzonatate 100 MG CAP PO PRN ×3 (08:04→20:46)
[2017-11-17] MEDS: Docusate 100 MG CAP PO SCH ×2 (08:05→20:41)
[2017-11-17] MEDS: Famotidine 20 MG TAB PO SCH ×2 (08:05→20:41)
[2017-11-17] MEDS: Saccharomyces boulardii 250 MG CAP PO SCH (08:05)
[2017-11-17] MEDS: predniSONE 20 MG TAB PO SCH (08:06)
[2017-11-17] MEDS: ALPRAZolam 0.25 MG TAB PO SCH ×3 (08:06→20:41)
--- NOTE | 2017-11-17 10:09 | PRG ---
DATE OF SERVICE: 11/17/2017 This morning, he is better, less short of breath. PHYSICAL EXAMINATION: VITAL SIGNS: Sats are 100% on 4 liters, respiration 24, temperature 98, blood pressure 140/82. CHEST: Chest revealed decreased breath sounds in left lung. CARDIAC: Normal S1-S2. No gallops. ABDOMEN: Soft, no masses. LABORATORY: White count 18,000, H&H 9 and 27, platelet count normal. Electrolytes normal. His chest x-ray shows the loculated left-sided pneumothorax. Small bore chest tube in place. IMPRESSION: 1. Febrile illness. So far cultures are negative. 2. Bronchogenic carcinoma. 3. No methicillin-resistant Staphylococcus aureus staph infection. PLAN: I am going to stop the vancomycin. Otherwise, continue Maxipime. The family will be talked a bout management of his chest tube. Hopefully, discharge in the next 24-48 hours.
--- NOTE | 2017-11-17 14:24 | PDOC.PN ---
- Subjective Encounter Start Date: 11/17/17 Encounter Start Time: 14:22 Subjective: feel much better today.able to breathe easier -: care discussed w at bedside. no new issues voiced - Objective MAR Reviewed: Yes Vital Signs & Weight: Vital Signs (12 hours) Temp Pulse Resp BP Pulse Ox 11/17/17 14:18 85 16 98 11/17/17 11:00 96.5 F L 93 22 H 132/79 99 11/17/17 08:00 94.2 F L 89 24 H 100 11/17/17 07:15 94.2 F L 89 24 H 144/82 H 100 11/17/17 07:10 85 18 96 11/17/17 03:49 97.0 F L 87 16 137/89 9 L Weight Weight 198 lb 15.828 oz I&O: 11/16/17 11/17/17 11/18/17 06:59 06:59 06:59 Intake Total 880 Balance 880 Result Diagrams: 11/17/17 05:22 11/17/17 06:43 Additional Labs: Microbiology 11/15/17 16:20 Pleural fluid Acid Fast Bacilli Smear - Final 11/15/17 15:11 Sputum Respiratory Culture - Final 11/15/17 16:20 Pleural fluid Body Fluid Culture - Preliminary 11/15/17 15:11 Sputum Respiratory Culture - Preliminary Phys Exam - Physical Examination Constitutional: NAD HEENT: PERRLA, moist MMs, sclera anicteric, oral pharynx no lesions Neck: no nodes, no JVD, supple, full ROM Respiratory: no wheezing, no rales, no rhonchi, clear to auscultation bilateral small bore chest tube left anterior chest.dec sounds left lower chest Cardiovascular: RRR, no significant murmur Gastrointestinal: soft, non-tender, no distention, positive bowel sounds Musculoskeletal: no edema, pulses present Neurological: non-focal, normal sensation, moves all 4 limbs Lymphatic: no nodes Psychiatric: normal affect, A&O x 3 Skin: no rash Dx/Plan (1) Pleural effusion, left Code(s): J90 - PLEURAL EFFUSION, NOT ELSEWHERE CLASSIFIED Status: Acute Comment: ?malignant. (2) PNA (pneumonia) Code(s): J18.9 - PNEUMONIA, UNSPECIFIED ORGANISM Status: Acute (3) Sepsis Code(s): A41.9 - SEPSIS, UNSPECIFIED ORGANISM Status: Acute (4) Pneumothorax, left Code(s): J93.9 - PNEUMOTHORAX, UNSPECIFIED Status: Acute (5) Acute respiratory failure with hypoxia Code(s): J96.01 - ACUTE RESPIRATORY FAILURE WITH HYPOXIA Status: Resolved (6) Anemia of chronic disease Code(s): D63.8 - ANEMIA IN OTHER CHRONIC DISEASES CLASSIFIED ELSEWHERE Status : Chronic (7) Metastatic squamous cell carcinoma Code(s): C79.9 - SECONDARY MALIGNANT NEOPLASM OF UNSPECIFIED SITE; C80.1 - MALIGNANT (PRIMARY) NEOPLASM, UNSPECIFIED Status: Chronic Comment: primary lung cancer, with bone and lymph node mets - Plan plan discussed w/ family, PT/OT, social work professor, incentive spirometry, out of bed/ambulate, DVT proph w/SCDs cont empiric ABx for possible PNA/sepsis.Cx negative so far -: Chest tube in place w/o suction.PCCM following.CTS following -: hemodynamically stable. -: DC home when ok w Pulm/CTS. -: cont prednisosne,nebs,supportive care.on home O2 * . Review of Systems - Review of Systems Constitutional: negative: fever, chills, sweats, weakness, malaise, other Respiratory: negative: Cough, Dry, Shortness of Breath, Hemoptysis, SOB with Excertion, Pleuritic Pain, Sputum, Wheezing Cardiovascular: negative: chest pain, palpitations, orthopnea, paroxysmal nocturnal dyspnea, edema, light headedness, other Gastrointestinal: negative: Nausea, Vomiting, Abdominal Pain, Diarrhea, Constipation, Melena, Hematochezia, Other Genitourinary: negative: Dysuria, Frequency, Incontinence, Hematuria, Retention , Other Musculoskeletal: negative: Neck Pain, Shoulder Pain, Arm Pain, Back Pain, Hand Pain, Leg Pain, Foot Pain, Other Skin: negative: Rash, Lesions, Alan, Bruising, Other Neurological: negative: Weakness, Numbness, Incoordination, Change in Speech, Confusion, Seizures, Other - Medications/Allergies Allergies/Adverse Reactions: Allergies Allergy/AdvReac Type Severity Reaction Status Date / Time No Known Allergies Allergy Verified 11/15/17 01:20 Medications: Current Medications Hydrocodone Bitart/Acetaminophen ([place] 5/325) 1 tab PO Q4H PRN PRN Reason: Pain 1ST LINE Hydrocodone Bitart/Acetaminophen ([place] 5/325) 2 tab PO Q4H PRN PRN Reason: Pain 2ND LINE Albuterol Sulfate (Albuterol Sulfate) 1.25 mg NEB [id number] [facility] Last Admin: 11/17/17 14:18 Dose: 1.25 mg Alprazolam (Xanax) 0.25 mg PO HSPRN PRN PRN Reason: Insomnia Last Admin: 11/15/17 12:26 Dose: 0.25 mg Alprazolam (Xanax) 0.25 mg PO TID [facility] Last Admin: 11/17/17 08:06 Dose: Not Given Benzonatate (Tessalon) 100 mg PO TIDPRN PRN PRN Reason: Cough Last Admin: 11/17/17 14:02 Dose: 100 mg Docusate Sodium (Colace) 100 mg PO BID [facility] Last Admin: 11/17/17 08:05 Dose: 100 mg Famotidine (Pepcid) 20 mg PO BID [facility] Last Admin: 11/17/17 08:05 Dose: 20 mg Cefepime HCl 1 gm/Miscellaneous Medication 1 each/ Sodium Chloride 10 mls @ 120 mls/hr SLOW IVP 0400,1600 [facility] Last Admin: 11/17/17 03:40 Dose: 10 mls Ibuprofen (Motrin) 600 mg PO Q4H PRN PRN Reason: Pain Last Admin: 11/16/17 07:29 Dose: 600 mg Magnesium Hydroxide (Milk Of Magnesium) 30 ml PO Q6H PRN PRN Reason: Constipation Last Admin: 11/17/17 06:38 Dose: 30 ml Miscellaneous Medication (Pharmacy To Dose) 1 each IVPB PRN PRN PRN Reason: Pharmacy to dose Prednisone (Prednisone) 40 mg PO QAM-WM [facility] Last Admin: 11/17/17 08:06 Dose: 40 mg Promethazine HCl/Codeine (Phenergan/Codeine Syrup) 5 ml PO QID [facility] Last Admin: 11/17/17 14:00 Dose: 5 ml Saccharomyces Boulardii (Florastor) 250 mg PO DAILY [facility] Last Admin: 11/17/17 08:05 Dose: 250 mg Senna (Senokot) 2 tab PO HSPRN PRN PRN Reason: Constipation Tramadol HCl (Ultram) 100 mg PO Q4H PRN PRN Reason: Pain Last Admin: 11/17/17 03:45 Dose: 100 mg
[2017-11-18] MEDS: Cefepime 1 GM, Admixture Fee 1 EACH in Sodium Chloride 0.9% 10 ML SLOW IVP SCH (04:18)
[2017-11-18] MEDS: traMADol HCl 50 MG TAB PO PRN ×2 (04:19→20:04)
[2017-11-18] MEDS: HYDROcodone/Acetaminophen 5/325 mg Tablet PO PRN (05:02)
[2017-11-18 06:17] LABS: Anion Gap 15 mmol/L (10-20); BUN (Urea Nitrogen) 12 mg/dL (8.4-25.7); Calc. Creatinine Clearance 158 mL/min (70-130); Calcium 8.2 mg/dL (7.8-10.44); Carbon Dioxide 21 mmol/L (22-29); Chloride 104 mmol/L (98-107); Estimated GFR-MDRD Greater than 90; Glucose 86 mg/dL (70-105); Potassium 4.2 mmol/L (3.5-5.1); Sodium 136 mmol/L (136-145)
[2017-11-18 06:25] LABS: Hemoglobin 8.4 g/dL (14.0-18.0); Mean Corpuscular HGB CONC 29.8 g/dL (32.0-36.0); Mean Corpuscular Hemoglobin 24.3 pg (27.0-31.0); Mean Corpuscular Volume 81.5 fl (80.0-94.0); Platelet Count 473 thou/uL (130-400); RBC Distribution Width 16.4 % (11.5-14.5); Red Blood Cell (RBC) Count 3.46 mill/uL (4.70-6.10); White Blood Cell (WBC) Count 20.2 thou/uL (4.8-10.8)
[2017-11-18 06:26] LABS: Lymphocytes 7 % (21-51); MDiff Complete? YES; Monocytes 6 % (0-10); Myelocyte 1 % (0-0); Neutrophil 86 % (42-75); PLT Morphology Comment Appears Increased
[2017-11-18] MEDS: Albuterol Sulfate 1.25 MG/3 ML NEB NEB SCH ×3 (07:11→22:37)
[2017-11-18] MEDS: predniSONE 20 MG TAB PO SCH (08:23)
[2017-11-18] MEDS: ALPRAZolam 0.25 MG TAB PO SCH ×3 (08:23→20:05)
[2017-11-18] MEDS: Docusate 100 MG CAP PO SCH ×2 (08:24→20:05)
[2017-11-18] MEDS: Saccharomyces boulardii 250 MG CAP PO SCH (08:24)
[2017-11-18] MEDS: Famotidine 20 MG TAB PO SCH ×2 (08:24→20:05)
[2017-11-18] MEDS: Phenergan/Codeine 10-6.25mg/5ml UDCUP PO SCH ×4 (08:25→20:03)
[2017-11-18] MEDS ORDERED: CARBOplatin 750 MG in Sodium Chloride 0.9% 250 ML 250 ML IVPB SCH (09:00)
[2017-11-18] MEDS ORDERED: Zoledronic Acid 4 MG in Sodium Chloride 0.9% 100 ML IVPB SCH (09:00)
[2017-11-18] MEDS ORDERED: diphenhydrAMINE 50 MG/ML VIAL IVP SCH ×2 (09:00→14:15)
[2017-11-18] MEDS ORDERED: Famotidine 40 MG/4 ML VIAL SLOW IVP SCH (09:00)
[2017-11-18] MEDS ORDERED: PALONOSETRON HCL 0.05 MG/ML 5 ML VIAL IVP SCH (09:00)
[2017-11-18] MEDS ORDERED: Dexamethasone 20 MG in Sodium Chloride 0.9% 50 ML IVPB SCH (09:00)
[2017-11-18] MEDS ORDERED: Famotidine/PF 20 mg/2ml Vial SLOW IVP SCH (11:15)
[2017-11-18] MEDS ORDERED: diphenhydrAMINE 50 MG/ML VIAL ONE (12:44)
--- NOTE | 2017-11-18 14:08 | PDOC.PN ---
- Subjective Encounter Start Date: 11/18/17 Encounter Start Time: 14:07 Subjective: feels tired today. getting chemoRx -: no new events -: denies any FELICIANO/cough - Objective MAR Reviewed: Yes Vital Signs & Weight: Vital Signs (12 hours) Temp Pulse Resp BP Pulse Ox 11/18/17 11:00 95.9 F L 93 24 H 137/74 97 11/18/17 07:15 97.3 F L 99 18 135/78 93 L 11/18/17 07:11 88 16 92 L 11/18/17 02:23 98.2 F 91 18 161/72 H 99 Weight Weight 198 lb 15.828 oz I&O: 11/17/17 11/18/17 11/19/17 06:59 06:59 06:59 Intake Total 900 Balance 900 Result Diagrams: 11/18/17 05:26 11/18/17 05:26 Additional Labs: Microbiology 11/15/17 16:20 Pleural fluid Acid Fast Bacilli Smear - Final 11/15/17 15:11 Sputum Respiratory Culture - Final 11/15/17 16:20 Pleural fluid Body Fluid Culture - Preliminary Phys Exam - Physical Examination Constitutional: NAD sleepy HEENT: PERRLA, moist MMs, sclera anicteric, oral pharynx no lesions Neck: no nodes, no JVD, supple, full ROM Respiratory: no wheezing, no rales, no rhonchi, clear to auscultation bilateral decreased left base Cardiovascular: RRR, no significant murmur Gastrointestinal: soft, non-tender, no distention, positive bowel sounds Musculoskeletal: no edema, pulses present Neurological: non-focal, normal sensation, moves all 4 limbs Psychiatric: normal affect, A&O x 3 Skin: no rash Dx/Plan (1) Pleural effusion, left Code(s): J90 - PLEURAL EFFUSION, NOT ELSEWHERE CLASSIFIED Status: Acute Comment: ?malignant.S/P Thoracentesis.Cx negative so far.Path pending (2) PNA (pneumonia) Code(s): J18.9 - PNEUMONIA, UNSPECIFIED ORGANISM Status: Acute (3) Pneumothorax, left Code(s): J93.9 - PNEUMOTHORAX, UNSPECIFIED Status: Acute (4) Sepsis Code(s): A41.9 - SEPSIS, UNSPECIFIED ORGANISM Status: Acute Comment: d/t PNA (5) Acute respiratory failure with hypoxia Code(s): J96.01 - ACUTE RESPIRATORY FAILURE WITH HYPOXIA Status: Resolved (6) Anemia of chronic disease Code(s): D63.8 - ANEMIA IN OTHER CHRONIC DISEASES CLASSIFIED ELSEWHERE Status : Chronic (7) Metastatic squamous cell carcinoma Code(s): C79.9 - SECONDARY MALIGNANT NEOPLASM OF UNSPECIFIED SITE; C80.1 - MALIGNANT (PRIMARY) NEOPLASM, UNSPECIFIED Status: Chronic Comment: primary lung cancer, with bone and lymph node mets - Plan plan discussed w/ family, PT/OT, out of bed/ambulate, DVT proph w/SCDs ChemoRx per Oncology today.check CBc tomorrow. -: Chest tube manamgement per PCCM -: hemodynamically stable. uses O2 at home -: H/H stable.WBC high due to steroids. -: cont nebs,steroids,Empiric ABx. * . Review of Systems - Review of Systems Constitutional: weakness, malaise. negative: fever, chills, sweats, other Respiratory: negative: Cough, Dry, Shortness of Breath, Hemoptysis, SOB with Excertion, Pleuritic Pain, Sputum, Wheezing Cardiovascular: negative: chest pain, palpitations, orthopnea, paroxysmal nocturnal dyspnea, edema, light headedness, other Gastrointestinal: negative: Nausea, Vomiting, Abdominal Pain, Diarrhea, Constipation, Melena, Hematochezia, Other Genitourinary: negative: Dysuria, Frequency, Incontinence, Hematuria, Retention , Other Musculoskeletal: negative: Neck Pain, Shoulder Pain, Arm Pain, Back Pain, Hand Pain, Leg Pain, Foot Pain, Other Skin: negative: Rash, Lesions, Alan, Bruising, Other Neurological: negative: Weakness, Numbness, Incoordination, Change in Speech, Confusion, Seizures, Other - Medications/Allergies Allergies/Adverse Reactions: Allergies Allergy/AdvReac Type Severity Reaction Status Date / Time No Known Allergies Allergy Verified 11/15/17 01:20 Medications: Current Medications Hydrocodone Bitart/Acetaminophen ([place] 5/325) 1 tab PO Q4H PRN PRN Reason: Pain 1ST LINE Hydrocodone Bitart/Acetaminophen ([place] 5/325) 2 tab PO Q4H PRN PRN Reason: Pain 2ND LINE Last Admin: 11/18/17 05:02 Dose: 2 tab Albuterol Sulfate (Albuterol Sulfate) 1.25 mg NEB [id number] [facility] Last Admin: 11/18/17 07:11 Dose: 1.25 mg Alprazolam (Xanax) 0.25 mg PO HSPRN PRN PRN Reason: Insomnia Last Admin: 11/15/17 12:26 Dose: 0.25 mg Alprazolam (Xanax) 0.25 mg PO TID [facility] Last Admin: 11/18/17 08:23 Dose: 0.25 mg Benzonatate (Tessalon) 100 mg PO TIDPRN PRN PRN Reason: Cough Last Admin: 11/17/17 20:46 Dose: 100 mg Diphenhydramine HCl (Benadryl) 50 mg IVP 0900 [facility] Stop: 11/18/17 19:00 Last Admin: 11/18/17 10:55 Dose: 50 mg Docusate Sodium (Colace) 100 mg PO BID [facility] Last Admin: 11/18/17 08:24 Dose: 100 mg Famotidine (Pepcid) 20 mg PO BID [facility] Last Admin: 11/18/17 08:24 Dose: 20 mg Cefepime HCl 1 gm/Miscellaneous Medication 1 each/ Sodium Chloride 10 mls @ 120 mls/hr SLOW IVP 0400,1600 [facility] Last Admin: 11/18/17 04:18 Dose: 10 mls Paclitaxel 370 mg/ Sodium (Chloride) 561.7 mls @ 187.233 mls/hr IVPB 0900 [facility] Stop: 11/18/17 19:00 Last Admin: 11/18/17 12:27 Dose: 561.7 mls Carboplatin 750 mg/ Sodium (Chloride) 325 mls @ 433.333 mls/hr IVPB 0900 [facility] Stop: 11/18/17 19:00 Last Admin: 11/18/17 11:24 Dose: 325 mls Dexamethasone 20 mg/ Sodium (Chloride) 55 mls @ 165 mls/hr IVPB 0900 [facility] Stop: 11/18/17 19:00 Last Admin: 11/18/17 10:34 Dose: 55 mls Zoledronic Acid 4 mg/ Sodium (Chloride) 100 mls @ 200 mls/hr IVPB 0900 [facility] Stop: 11/18/17 19:00 Last Admin: 11/18/17 09:52 Dose: 100 mls Ibuprofen (Motrin) 600 mg PO Q4H PRN PRN Reason: Pain Last Admin: 11/16/17 07:29 Dose: 600 mg Magnesium Hydroxide (Milk Of Magnesium) 30 ml PO Q6H PRN PRN Reason: Constipation Last Admin: 11/17/17 20:41 Dose: 30 ml Miscellaneous Medication (Pharmacy To Dose) 1 each IVPB PRN PRN PRN Reason: Pharmacy to dose Palonosetron (Aloxi) 0.25 mg IVP 0900 [facility] Stop: 11/18/17 19:00 Last Admin: 11/18/17 11:02 Dose: 0.25 mg Prednisone (Prednisone) 40 mg PO QAM-WM [facility] Last Admin: 11/18/17 08:23 Dose: 40 mg Promethazine HCl/Codeine (Phenergan/Codeine Syrup) 5 ml PO QID [facility] Last Admin: 11/18/17 08:25 Dose: 5 ml Saccharomyces Boulardii (Florastor) 250 mg PO DAILY [facility] Last Admin: 11/18/17 08:24 Dose: 250 mg Senna (Senokot) 2 tab PO HSPRN PRN PRN Reason: Constipation Tramadol HCl (Ultram) 100 mg PO Q4H PRN PRN Reason: Pain Last Admin: 11/18/17 04:19 Dose: 100 mg
[2017-11-18] MEDS ORDERED: Dexamethasone 10 MG/ML VIAL SLOW IVP SCH (14:15)
--- NOTE | 2017-11-18 15:40 | RAD ---
FRONTAL RADIOGRAPH CHEST: Date: 11-18-17 Comparison: 11-16-17 History: Change in respiratory status, shortness of breath. FINDINGS: There is subcutaneous emphysema in the left supraclavicular region, new. There is increasing subcutan eous emphysema within the left chest wall. There is a chest tube curling over the left base laterally, stable. There is minimal patchy opacity in the lateral aspect of the right lung base which may represent volu me loss. On the 11-16-17 exam there was prominent soft tissue density in the left perihilar region and left sup rahilar region medially. The opacity within the medial left lung apex has decreased but there is incr easing opacity in the left perihilar region and worsening dense opacity in the left base. Exact etiol ogy for this appearance is uncertain. This could represent accumulating pleural fluid with new pulmon rolando parenchymal opacity and/or volume loss. Findings could be better assessed via chest CT or short t erm follow up chest radiograph. IMPRESSION: 1. Left chest tube in place. Increasing subcutaneous gas on the left. There is interval increased pul monary parenchymal opacity within the left lung base with worsening aeration in the mid left lung zon e and left perihilar region. It is uncertain whether this represents accumulating pleural fluid, alte red aeration within the left lung and/or volume loss. Follow up CT examination or short term follow u p radiographs advised. POS: KIYA
--- NOTE | 2017-11-18 16:29 | PRG ---
DATE OF SERVICE: 11/18/2017 SUBJECTIVE: Beatrice Otoole's events have been reviewed. He had an episode today of where he could not get his breath for 3 minutes. He said he just could not get any air in. He has had no recurrence of this. Chest radiograph that was done in my opinion does not appear to be significantly changed, although there seems to be the appearance of a cavity in his left upper lung field. OBJECTIVE: VITAL SIGNS: He is afebrile. When I evaluated him about 20 minutes ago, his respiratory rate was 12 . Blood pressure is 137/74. GENERAL: He is in no distress. He is resting comfortably, talking in complete sentences. LUNGS: Clear. HEART: Regular rhythm. S1 and S2 are normal. ABDOMEN: Soft and nontender. EXTREMITIES: Without asymmetry. His chemo will be restarted. His cultures remain negative and he can be switched to p.o. antimicrobial therapy in my opinion. The brief nature of this and the difficulty of inspiring makes me wonder whether or not this was not some type of upper airway muscle spasm related to reflux. His says that he just could not get a breath in. It awakened him from sleep. It resolved within 3 minutes. This does not fit from histo rical standpoint for thromboembolic disease, but this will need to be kept in mind since he is certai nly at risk for that. His Maxipime will be discontinued and will be started on Omnicef today. I andriy l continue to follow.
[2017-11-18] MEDS: Benzonatate 100 MG CAP PO PRN (18:42)
[2017-11-18] MEDS ORDERED: hydrALAZINE 25 MG TAB PO PRN (19:39)
[2017-11-18] MEDS: Cefdinir 300 MG CAP PO SCH (20:05)
[2017-11-19] MEDS: HYDROcodone/Acetaminophen 5/325 mg Tablet PO PRN ×3 (00:20→08:31)
[2017-11-19] MEDS: ALPRAZolam 0.25 MG TAB PO PRN (00:20)
[2017-11-19 05:56] LABS: #Eosinphils 0.1 thou/uL (0.0-0.7); #Lymphocytes 1.4 thou/uL (1.20-3.40); #Monocytes 0.3 thou/uL (0.11-0.59); #Neutrophils 18.3 thou/uL (1.40-6.50); %Basophils 0.2 % (0.0-1.0); %Eosinophils 0.3 % (0.0-10.0); %Lymphocytes 6.8 % (21.0-51.0); %Monocytes 1.6 % (0.0-10.0); %Neutrophils 91.1 % (42.0-75.0); Hemoglobin 9.2 g/dL (14.0-18.0); Mean Corpuscular HGB CONC 31.2 g/dL (32.0-36.0); Mean Corpuscular Hemoglobin 25.2 pg (27.0-31.0); Mean Corpuscular Volume 80.8 fl (80.0-94.0); Platelet Count 468 thou/uL (130-400); RBC Distribution Width 16.6 % (11.5-14.5); Red Blood Cell (RBC) Count 3.64 mill/uL (4.70-6.10); White Blood Cell (WBC) Count 20.1 thou/uL (4.8-10.8)
[2017-11-19 06:10] LABS: Anion Gap 13 mmol/L (10-20); BUN (Urea Nitrogen) 13 mg/dL (8.4-25.7); Calc. Creatinine Clearance 153 mL/min (70-130); Calcium 8.7 mg/dL (7.8-10.44); Carbon Dioxide 27 mmol/L (22-29); Chloride 104 mmol/L (98-107); Estimated GFR-MDRD Greater than 90; Glucose 148 mg/dL (70-105); Potassium 4.9 mmol/L (3.5-5.1); Sodium 139 mmol/L (136-145)
[2017-11-19] MEDS: Albuterol Sulfate 1.25 MG/3 ML NEB NEB SCH ×2 (07:41→13:58)
[2017-11-19] MEDS: Phenergan/Codeine 10-6.25mg/5ml UDCUP PO SCH ×2 (08:23→14:00)
[2017-11-19] MEDS: ALPRAZolam 0.25 MG TAB PO SCH (08:24)
[2017-11-19] MEDS: Cefdinir 300 MG CAP PO SCH (08:24)
[2017-11-19] MEDS: Famotidine 20 MG TAB PO SCH (08:24)
[2017-11-19] MEDS: Benzonatate 100 MG CAP PO PRN (08:24)
[2017-11-19] MEDS: Saccharomyces boulardii 250 MG CAP PO SCH (08:24)
[2017-11-19] MEDS: Docusate 100 MG CAP PO SCH (08:25)
[2017-11-19] MEDS: predniSONE 20 MG TAB PO SCH (08:25)
[2017-11-19] MEDS: Milk Of Magnesia 30 ML UDCUP PO PRN (09:40)
[2017-11-19 11:42] VITALS: BP 112/65; TEMP 97.6
[2017-11-19] MEDS: Ibuprofen 600 MG TAB PO PRN (12:39)
[2017-11-19] MEDS ORDERED: Benzonatate 100 MG CAP PO SCH (12:45)
--- NOTE | 2017-11-19 14:41 | DIS ---
DATE OF ADMISSION: 11/15/2017 DATE OF DISCHARGE 11/19/2017 CONDITION AT THE TIME OF DISCHARGE: Stable and improved. PRIMARY CARE PHYSICIAN: Maxine Gaytan M.D. PRIMARY ONCOLOGIST: Clair Snyder M.D. DISCHARGE DIAGNOSES: 1. Malignant pleural effusion, status post PleurX catheter placement. 2. Pneumonia. 3. Left-sided pneumothorax. 4. Sepsis secondary to pneumonia. 5. Acute hypoxic respiratory failure secondary to #1 and #2. 6. Anemia of chronic kidney disease. 7. Metastatic squamous cell carcinoma. CONSULTATIONS INHOUSE: Include, 1. Pulmonary Medicine, Dr. Llamas. 2. Oncology, Lauren Ayala for Dr. Snyder. 3. Cardiovascular Surgery, Dr. Delatorre. DISCHARGE MEDICATIONS: Omnicef 300 mg p.o. b.i.d. for 5 more days, Florastor 250 mg p.o. daily for 1 0 days, Medrol Dosepak, Xanax 0.25 mg at bedtime as needed, albuterol inhaler as needed, Tessalon 100 mg p.o. t.i.d. p.r.n., ibuprofen as needed, tramadol as needed. PROCEDURES DONE IN THE HOSPITAL: Include, 1. CT scan of the chest on 11/15/2017 which showed total opacification of the left hemithorax consis tent with large pleural effusion and left upper lobe lung mass with atelectasis of the lung on the le ft side with extensive mediastinal adenopathy and right-sided pulmonary metastasis with extensive bon e metastasis with multiple right-sided pathological rib fractures. 2. Placement of a left-sided PleurX catheter by Dr. Delatorre on 11/16/2017. 3. Multiple chest x-rays. HISTORY OF PRESENTING ILLNESS: Mr. Otoole is a very pleasant 57-year-old male with history of metastat ic squamous cell carcinoma of the lung, undergoing chemotherapy and radiation who developed fever and chills and increased heart rate at home and presented to the emergency room in [place]. At the time of presentation, he was found to be in moderate respiratory distress. X-ray done showed opacif ication of the left lung with pleural effusion. He was started on empiric antibiotics for possible p neumonia and was admitted. Please see admission history and physical for further details. HOSPITAL COURSE: Pulmonary Medicine Team was consulted. He underwent a CT scan of the chest which s howed complete opacification as above. It also showed big left-sided pleural effusion, likely malign ant in nature. Pulmonary Medicine did thoracentesis with fluid removal. His fluid was sent for cult ure and cell count. Fluid cultures have remained negative until date. His WBC count was 1500 with R BCs 17,000, 12% neutrophils, 82% lymphocytes. Because of this, a massive pleural effusion and the po ssibility that most likely is malignant and prone to reoccur; Cardiothoracic Surgery was consulted fo r placement of a PleurX catheter. He underwent the procedure by Dr. Delatorre without any complications and tolerated it very well. PleurX catheter setup was done for him to continue with self drainage at home and him and his was taught about the use. Oncology Team also saw the patient and he received his next dose of chemotherapy yesterday prior to h is discharge. This morning, he is feeling much better. He is tolerating his home oxygen and is back to baseline. His pleural fluid pathology has come back from malignant cells which are squamous cell in nature. I have discussed this diagnosis with the patient and his who will further discuss i t with Oncology Services at the outpatient appointment. He was seen and examined prior to discharge. PHYSICAL EXAMINATION: VITAL SIGNS: His vital signs this morning temperature 97.6, pulse of 95, respirations 18, saturating 95% on 4 liters nasal cannula, blood pressure 112/65. GENERAL: No acute distress, awake, alert, oriented x3. CHEST: Clear to auscultation on the right side, but very minimal breath sounds on the left side. Re duced inspiratory effort due to rib fractures and pain. Rate and rhythm is regular. ABDOMEN: Soft. NEUROLOGIC: Examination is nonfocal. At this time, he is instructed to follow with his PCP as well as his Oncology in the outpatient [facility]. Discharge plan was discussed with the patient and his who verbalized understanding. Total time spent in the discharge of this patient was 33 minutes.
== END 2017-11-19 14:05 | disposition home or self-care (01) | DRG 199 ==
LOC: ERS 21:51 → ONC 23:00
PROVIDERS: ADMIT Internal Medicine; ATTEND Internal Medicine
PROC: 0W9B3ZX Drainage of Left Pleural Cavity, Percutaneous Approach, Diagnostic (ICD-10-PCS; 2017-11-15)
PROC: 0W9830Z Drainage of Chest Wall with Drainage Device, Percutaneous Approach (ICD-10-PCS; principal; 2017-11-16)
DX: J93.83 Other pneumothorax (principal); J18.9 Pneumonia, unspecified organism; J96.01 Acute respiratory failure with hypoxia; A41.9 Sepsis, unspecified organism; J91.0 Malignant pleural effusion; C77.1 Secondary and unspecified malignant neoplasm of intrathoracic lymph nodes; C79.51 Secondary malignant neoplasm of bone; E87.2 Acidosis; M84.48XA Pathological fracture, other site, initial encounter for fracture; C34.12 Malignant neoplasm of upper lobe, left bronchus or lung; J98.11 Atelectasis; Z99.81 Dependence on supplemental oxygen; F41.9 Anxiety disorder, unspecified; Z51.11 Encounter for antineoplastic chemotherapy; I10 Essential (primary) hypertension; E78.5 Hyperlipidemia, unspecified; Z87.891 Personal history of nicotine dependence; F32.9 Major depressive disorder, single episode, unspecified; D63.8 Anemia in other chronic diseases classified elsewhere
CPT/HCPCS: 36415; 71045; 71250; 80048; 80202; 82150; 82945; 83615; 83735; 83986; 84157; 84478; 85025; 85060; 87070; 87116; 87205; 87206; 88112; 88305; 89051; 93005; 94640; C1729; J0692; J1100; J1200; J1940; J2001; J2250; J2469; J2704; J3010; J3370; J3489; J7050; J7506; J9045; J9267

== ENCOUNTER 2017-12-01 10:01 | Inpatient (IN) | payer MEDICAID, OTHER, SELFPAY ==
[~2017-12-01 10:01] MED LIST: Iopamidol 370 76% 100 ML VIAL ONE
--- NOTE | 2017-12-01 10:46 | RAD ---
PORTABLE CHEST: Indication: Dyspnea. Comparison: 11-26-17, 11-16-17 FINDINGS: Left chest tube does not appear significantly changed in position. The left subcutaneous emphysema hutchinson s decreased. There appears to be an enlarging left effusion when compared to 11-16-17. There continues to be focal infiltrate and/or atelectasis in the left mid lung and left lower lung. Opacity in the l eft apical region may represent some loculated fluid in this region. Right lung remains clear. IMPRESSION: Evidence of enlarging left effusion and continued left atelectasis and/or consolidation in the mid an d lower left lung. POS: [facility]
[2017-12-01 11:23] LABS: Hemoglobin 10.5 g/dL (14.0-18.0); Mean Corpuscular HGB CONC 31.2 g/dL (32.0-36.0); Mean Corpuscular Hemoglobin 24.9 pg (27.0-31.0); Mean Corpuscular Volume 79.8 fl (80.0-94.0); Mean Platelet Volume 7.2 fL (7.4-10.4); Platelet Count 357 thou/uL (130-400); RBC Distribution Width 18.2 % (11.5-14.5); Red Blood Cell (RBC) Count 4.19 mill/uL (4.70-6.10)
[2017-12-01 11:26] LABS: ALT (SGPT) 18 U/L (8-55); AST (SGOT) 24 U/L (5-34); Albumin 3.4 g/dL (3.5-5.0); Alkaline Phosphatase 199 U/L (40-150); Anion Gap 16 mmol/L (10-20); BUN (Urea Nitrogen) 19 mg/dL (8.4-25.7); Bilirubin, Total 0.6 mg/dL (0.2-1.2); CK (CPK) 45 U/L (30-200); Calc. Creatinine Clearance 0 mL/min (70-130); Carbon Dioxide 25 mmol/L (22-29); Chloride 95 mmol/L (98-107); Estimated GFR-MDRD Greater than 90; Globulin 4.3 g/dL (2.4-3.5); Glucose 95 mg/dL (70-105); Potassium 4.5 mmol/L (3.5-5.1); Protein, Total 7.7 g/dL (6.0-8.3); Sodium 131 mmol/L (136-145)
[2017-12-01 11:27] LABS: CKMB 5.4 ng/mL (0-6.6); Troponin I 0.013 ng/mL (< 0.028)
[2017-12-01 11:52] LABS: Band 17 % (5-11); Eosinophils 1 % (0-10); Hypochromia SLIGHT = 6-15 cells (100X) (0-5/hpf); Lymphocytes 32 % (21-51); MDiff Complete? YES; Monocytes 12 % (0-10); Neutrophil 37 % (42-75); PLT Morphology Comment Appears Adequate; Polychromasia SLIGHT = 2-3 cells (100X) (0-2/hpf)
--- NOTE | 2017-12-01 12:00 | CT ---
CT PULMONARY ANGIO CHEST WITH CONTRAST: Technique: Multiple axial tomograms were obtained through the abdomen and pelvis following pulmonary angio protocol with IV enhancement. Multiplanar reconstruction and 3D post processing obtained. Indication: Shortness of breath. Dyspnea. Increasing cough. Recent diagnosis of lung cancer. On chemo therapy. Comparison: Recent chest CT of 11-15-17. FINDINGS: Left chest tube has been placed since the prior study. There is a left hydropneumothorax with numerou s air pockets seen within this left effusion. There is a prominent airfluid level seen posteriorly in the left upper chest. There appears to be dense atelectasis of the left upper lobe with this atelect atic lung along the upper left mediastinum. Atelectasis and/or infiltrate in the left midlung. Small pulmonary nodule which is pleural based, posterior right midlung is again noted and unchanged. Other scattered right lung nodules again noted. Interstitial prominence seen in the right upper lobe and right middle lobe is again noted. No significant right sided effusion. No evidence of pulmonary embolus. The pulmonary arteries show normal opacification. Mediastinal adeno candi is again noted as described previously. IMPRESSION: 1. No evidence of pulmonary embolus. 2. Moderate sized left effusion, some of which may be loculated. There is a prominent airfluid level in the posterior left upper chest. 3. Dense atelectasis of the left upper lobe and streaky atelectasis and/or infiltrate in the left mid lung. 4. There are scattered nodules in the right lung which do not appear significantly changed when john red to the prior exam. 5. Interstitial prominence in the right upper and right middle lobes again noted. This could represen t interstitial spread of neoplasm. 6. Right sided rib fractures which were previously described and appear unchanged. 7. Mediastinal and hilar adenopathy again noted with prominent right hilar mass lesion are not signif icantly changed. 8. Previous exam described numerous bone lesions in the spine consistent with metastasis. This appear s stable. POS: [facility]
[2017-12-01] MEDS ORDERED: Ondansetron HCl/PF 4 MG/2 ML Vial ONE (14:57)
[2017-12-01] MEDS ORDERED: Morphine 4 MG/ML VIAL ONE (14:57)
[2017-12-01 19:19] VITALS: BMI 23.9
[2017-12-01] MEDS ORDERED: Sodium Chloride 0.9% 1,000 ML IV SCH (19:20)
[2017-12-01] MEDS ORDERED: Ondansetron HCl/PF 4 MG/2 ML Vial IVP PRN (19:20)
[2017-12-01] MEDS ORDERED: Ondansetron ODT 4 MG TAB SL PRN (19:20)
[2017-12-01] MEDS ORDERED: Acetaminophen 325 MG TAB PO PRN (23:10)
[2017-12-01] MEDS ORDERED: Sodium Chloride Nasal 15 GM TUBE EA NARE PRN (23:11)
[2017-12-01] MEDS ORDERED: Lidocaine Patch Removal 1 EACH TOP PRN (23:12)
[2017-12-01] MEDS ORDERED: Lidocaine 5% Patch TD PRN (23:12)
[2017-12-02 05:43] LABS: Calcium 8.7 mg/dL (7.8-10.44); Chloride 99 mmol/L (98-107); Potassium 4.7 mmol/L (3.5-5.1); Sodium 131 mmol/L (136-145)
[2017-12-02 06:03] LABS: Band 9 % (5-11); Hemoglobin 9.7 g/dL (14.0-18.0); Lymphocytes 28 % (21-51); MDiff Complete? YES; Mean Corpuscular HGB CONC 31.7 g/dL (32.0-36.0); Mean Corpuscular Hemoglobin 24.9 pg (27.0-31.0); Mean Corpuscular Volume 78.7 fl (80.0-94.0); Mean Platelet Volume 7.6 fL (7.4-10.4); Monocytes 8 % (0-10); Neutrophil 55 % (42-75); Platelet Count 333 thou/uL (130-400); RBC Distribution Width 18.4 % (11.5-14.5); Red Blood Cell (RBC) Count 3.91 mill/uL (4.70-6.10); White Blood Cell (WBC) Count 5.7 thou/uL (4.8-10.8)
[2017-12-02 06:07] LABS: Glucose 75 mg/dL (70-105)
[2017-12-02 06:09] LABS: Anion Gap 20 mmol/L (10-20); Carbon Dioxide 17 mmol/L (22-29)
[2017-12-02 06:11] LABS: Calc. Creatinine Clearance 149 mL/min (70-130); Estimated GFR-MDRD Greater than 90
[2017-12-02 06:12] LABS: BUN (Urea Nitrogen) 13 mg/dL (8.4-25.7)
[2017-12-02] MEDS: Ondansetron HCl/PF 4 MG/2 ML Vial IVP PRN ×2 (06:55→11:40)
--- NOTE | 2017-12-02 07:39 | RAD ---
PORTABLE CHEST: Date: 12/01/17 2 views obtained. INDICATION: Dyspnea. Comparison made to films of 11/18/17 and 11/16/17. FINDINGS: Left side chest tube does not appear significantly changed. The left subcutaneous emphysema has decre ased. There is evidence of a left upper lung pneumothorax. Hazy density in the apex may represent associate d fluid. Today's CT confirms a hydropneumothorax on the left with air fluid level in the left upper chest. Ple ase see accompanying CT angio chest exam. Right lung appears clear of infiltrate, although there are some interstitial markings, better seen on CT. IMPRESSION: Increasing left effusion with left hydropneumothorax, better appreciated on accompanying chest CT. POS: [facility]
--- NOTE | 2017-12-02 08:04 | ULT ---
ABDOMINAL ULTRASOUND: History: Elevated liver function test. FINDINGS: Gallbladder has a normal sonographic appearance. No evidence of gallstones. Common duct is normal jenae iber. Liver size is upper normal measured at 18 cm. Small amount of free fluid around the liver pavel n. Spleen is also upper normal size and measures approximately 12 cm. The pancreas is obscured. The a amina and IVC appear unremarkable. No evidence of aortic aneurysm. Both kidneys are imaged and both ki dneys appear unremarkable. No hydronephrosis. IMPRESSION: 1. Small amount of ascites seen around the liver margin. 2. Abdominal ultrasound otherwise unremarkable. POS: [facility]
[2017-12-02] MEDS ORDERED: Phenergan/Codeine 10-6.25mg/5ml UDCUP PO PRN (10:04)
[2017-12-02] MEDS ORDERED: Benzonatate 100 MG CAP PO PRN ×2 (10:04→11:57)
[2017-12-02] MEDS ORDERED: ALPRAZolam 0.25 MG TAB PO PRN ×2 (11:57→16:14)
[2017-12-02] MEDS ORDERED: Ibuprofen 600 MG TAB PO PRN (11:57)
[2017-12-02] MEDS ORDERED: traMADol HCl 50 MG TAB PO PRN (11:57)
[2017-12-02] MEDS: Phenergan/Codeine 10-6.25mg/5ml UDCUP PO SCH ×2 (13:00→16:34)
[2017-12-02] MEDS ORDERED: HYDROcodone/Acetaminophen 10/325 mg Tablet PO PRN (13:55)
--- NOTE | 2017-12-02 15:01 | CON ---
DATE OF CONSULTATION: 12/02/2017 REASON FOR CONSULTATION: Squamous cell lung cancer. HISTORY OF PRESENT ILLNESS: Mr. Otoole is a 57-year-old male who was diagnosed with squamous cell carcinoma of the left upper lobe. In 10/2017, he had a distant metastasis of the bones and ret roperitoneal lymph nodes. He has stage IV disease. He has been receiving treatment with carboplatin and Taxol. He received 2 cycles of chemotherapy as last one was on 11/18/2017. Shortly before his second treatment, he presented to the hospital with a large pleural effusion and had a PleurX cathete r placed. He has been draining it every other day at home. Over the past 2 days, he has become sign ificantly short of breath and his PleurX cath has no longer draining fluid, so he presented to the em ergency room yesterday for evaluation. He had a CT angio performed. He has a moderate size left ple ural effusion. There was a possible loculated area. He had atelectasis of the left upper lobe. He had scattered nodules of the right lung, which were not changed since the prior CT in October. He h ad interstitial prominence of the right upper and middle lobes. There was old right-sided rib fractu res. He had mediastinal and hilar lymphadenopathy. His right hilar mass was not significantly garg ed. He also had stable spinal bone mets. Denies any chest pain or shortness of breath. No nausea, vomiting, diarrhea or constipation. He does complain of right leg pain. He has a femur met at time of diagnosis. PAST MEDICAL HISTORY: 1. Stage IV squamous cell carcinoma of the lung. 2. Hyperlipidemia. 3. Hypertension. 4. Pleural effusion with PleurX cath placement. PAST SURGICAL HISTORY: CME. ALLERGIES: No known drug allergies. HOME MEDICATIONS: 1. Albuterol p.r.n. 2. Xanax 0.25 mg daily. 3. Tramadol 50 mg p.r.n. FAMILY HISTORY: His father had unknown type of cancer. SOCIAL HISTORY: , has 4 children, lives with his spouse. No alcohol, tobacco or illicit drug use. He is a former smoker, but quit at time of diagnosis. REVIEW OF SYSTEMS: Twelve point review of systems is negative except for noted on HPI. PHYSICAL EXAMINATION: VITAL SIGNS: Temperature is 97.9, pulse is 109, respiratory rate is 18, BP is 161/79. He is 94% on 4 liters. GENERAL: Chronically ill-appearing male, in no acute distress. HEENT: Normocephalic, atraumatic. Pupils equal and reactive to light. He has poor dentition. NECK: Supple. CARDIOVASCULAR: Regular rate and rhythm. He is tachycardic. LUNGS: Diminished throughout. ABDOMEN: Soft, nontender, bowel sounds are positive. EXTREMITIES: There is no clubbing, cyanosis or edema. SKIN: No rash. HEMATOLOGIC: There is no petechia or purpura. NEUROLOGIC: Nonfocal. PSYCHIATRIC: The patient is alert and oriented and anxious. PERTINENT LABORATORY AND X-RAYS: Current WBCs are 5.7, hemoglobin 9.7, hematocrit 30.8, platelet cou nt is 333,000. He has got 55% neutrophils, 9% bands, 28% lymphocytes, 8% monocytes. Sodium is 131, potassium 4.7, chloride 99, CO2 17, BUN is 13, creatinine 0.62, calcium is 8.7, bilirubin is 0.6, AST is 24, ALT is 18, alkaline phosphatase is 199, creatinine kinase is 45, troponin 0.013, BNP is 121. Serum total protein is 7.7, albumin 3.4, globulin 4.3. Radiology per HPI. ASSESSMENT: 1. Squamous cell lung cancer. 2. Malignant pleural effusion, status post PleurX catheterization. 3. Worsening dyspnea. DISCUSSION: The patient's imaging shows a moderate pleural effusion with possible loculated areas. I will ask Dr. Delatorre to come by and look at the PleurX cath although it does not appear to be displac ed. Dr. Ferguson will follow the patient. We will provide supportive care. I will make adjustments to his pain medications. Thank you for the consult. We will follow him closely.
[2017-12-02] MEDS: Albuterol Sulfate 1.25 MG/3 ML NEB NEB SCH ×2 (15:04→23:34)
[2017-12-02] MEDS: Benzonatate 100 MG CAP PO PRN (16:32)
[2017-12-02] MEDS: HYDROcodone/Acetaminophen 10/325 mg Tablet PO PRN (16:32)
--- NOTE | 2017-12-03 02:42 | CON ---
DATE OF CONSULTATION: 12/02/2017 Mr. Otoole presents with failure to thrive and muscle weakness. He is unable to stand for a very long without assistance. He certainly cannot walk any distance. He presented to the emergency room and was in the ER all day yesterday and admitted yesterday evening. I was consulted today. He has a CT angiogram showed no thromboembolic disease. Loculated effusion on the left is seen. Scattered pulmonary nodules are unchanged. Rib fractures were noted. Bone scan in the past barely had abnormalities in this area. Spinal lesions were seen consistent with metastatic disease. Brain MRI was done last month that did not show metastatic disease. Bone scan also showed femur lesions, but again no spine lesions. He has undergone 2 rounds of chemotherapy. FAMILY HISTORY: Negative for lung disease in early age. SOCIAL HISTORY: He is a former smoker. REVIEW OF SYSTEMS: 12 point system review completed, Mainly surrounds complaints of weakness. He denies being short of breath more than his blood baseline. He is anxious. He also has coughing spells that lead to vomiting. He did not receive his cough medicine last night, so he ended up vomiting and receiving Zofran. PHYSICAL EXAMINATION: GENERAL: Non small cell lung cancer VITAL SIGNS: He is afebrile, heart rate is 79, respiratory rate is 22, oximetry is 96 on 4 L cannula, blood pressure 140/68. HEENT: Pupils were equal. Sclerae is anicteric. He has alopecia from his chemo's. NECK: Supple. LUNGS: Clear anteriorly. HEART: Regular rhythm. ABDOMEN: Soft, protuberant. EXTREMITIES: Without asymmetry. LABORATORY DATA: White count 5.7, hemoglobin 9.7, platelets 333,000. Sodium 131, potassium 4.7, chloride 99, bicarbonate 17, BUN 30, creatinine 0.6. IMPRESSION: 1. Clinically aggressive nonsmall cell lung cancer. 2. 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 PLAN: Supportive care. Oncology has been consulted. I have discussed the above with the nurse practitioner from the Oncology team. This a 50 minute consult, greater than 50% of time was spent on the unit with coordination of care. FRANCISCO JAVIER
[2017-12-03] MEDS: HYDROcodone/Acetaminophen 10/325 mg Tablet PO PRN ×4 (02:44→20:44)
[2017-12-03] MEDS: Benzonatate 100 MG CAP PO PRN ×2 (02:44→20:41)
[2017-12-03] MEDS: Phenergan/Codeine 10-6.25mg/5ml UDCUP PO SCH ×5 (02:45→20:40)
[2017-12-03] MEDS: Albuterol Sulfate 1.25 MG/3 ML NEB NEB SCH ×3 (06:18→23:26)
[2017-12-03] MEDS: Saccharomyces boulardii 250 MG CAP PO SCH (08:21)
[2017-12-03] MEDS ORDERED: traMADol HCl 50 MG TAB PO PRN (09:31)
--- NOTE | 2017-12-03 09:58 | PDOC.PN ---
- Subjective Encounter Start Date: 12/03/17 Encounter Start Time: 09:56 Subjective: nsg notes rev, samy ovn, pt with at bedside. currently c/o STEVENS x1wk -: described as "all over" his head. no prior hx of STEVENS. at bedside states -: that this started 1 wk ago at home and he was still on prednisone at that time. also that norco seemed to help yesterday. also concerned that he has been sleeping for almost 3-4 days straight at home last week prior to adm. pt concerned that he has difficulty ambulating and standing upright that seems acutely worse in the last few days. they feel that breathing is slightly improved compared to at admission - Objective Vital Signs & Weight: Vital Signs (12 hours) Temp Pulse Resp BP BP Pulse Ox 12/03/17 06:50 97.5 F L 100 20 131/80 97 12/03/17 06:18 104 H 16 97 12/03/17 00:00 98.3 F 108 H 20 137/88 96 12/02/17 23:34 91 14 104 H Weight Admit Weight 176 lb 9.6 oz Weight 176 lb 9.6 oz I&O: 12/02/17 12/03/17 12/04/17 06:59 06:59 06:59 Intake Total 1380 Balance 1380 Result Diagrams: 12/02/17 04:20 12/02/17 04:20 Phys Exam - Physical Examination Constitutional: NAD lying in hosptial bed, pale HEENT: PERRLA, moist MMs, 2+ tonsils Neck: no nodes, no JVD Respiratory: no wheezing, no rales Dx/Plan - Plan 57M recent dx of SCLC who p/w SOB SOB * improved * apprec pulm c/s * apprec cv surg c/s * placement of pleurx appears to be correct, likely pt has drainable effusion leading to dec output STEVENS * last CT brain approx 1 mo ago neg * pt requesting to not undergo MRI * will recheck CT and continue with symptomatic mgmt * concern that he has been demonstrated decreased mentation at home SCLC * apprec onc c/s * ? weakness related to SCLC directly - ? additional prednisone would help diet: as eric, with supplements activity: as eric, rec PT at home dvt ppx Review of Systems - Medications/Allergies Allergies/Adverse Reactions: Allergies Allergy/AdvReac Type Severity Reaction Status Date / Time paclitaxel AdvReac Intermediate Short of Verified 12/02/17 12:10 Breath Medications: Current Medications Acetaminophen (Tylenol) 650 mg PO Q4H PRN PRN Reason: Pain 1-3 Last Admin: 12/01/17 23:22 Dose: 650 mg Hydrocodone Bitart/Acetaminophen ([place] 10/325) 1 tab PO Q4H PRN PRN Reason: Mild-Moderate Pain (1-5) Hydrocodone Bitart/Acetaminophen ([place] 10/325) 2 tab PO Q4H PRN PRN Reason: Moderate to Severe Pain (6-10) Last Admin: 12/03/17 09:56 Dose: 2 tab Albuterol Sulfate (Albuterol Sulfate) 1.25 mg NEB [id number] MARSHA Last Admin: 12/03/17 06:18 Dose: 1.25 mg Alprazolam (Xanax) 0.25 mg PO QID PRN PRN Reason: Anxiety Benzonatate (Tessalon) 200 mg PO TID PRN PRN Reason: Cough Last Admin: 12/03/17 02:44 Dose: 200 mg Ibuprofen (Motrin) 600 mg PO Q4HR PRN PRN Reason: Pain Lidocaine (Lidoderm 5% Patch) 1 patch TD Q12H PRN PRN Reason: Pain Last Admin: 12/01/17 23:23 Dose: 1 patch Miscellaneous Medication (Lidocaine Patch Removal) 1 each TOP Q12H PRN PRN Reason: TO REMOVE LIDOCAINE PATCH Ondansetron HCl (Zofran) 4 mg IVP Q6H PRN PRN Reason: Nausea/Vomiting Last Admin: 12/02/17 11:40 Dose: 4 mg Promethazine HCl/Codeine (Phenergan/Codeine Syrup) 5 ml PO QIDPRN PRN PRN Reason: Cough Last Admin: 12/02/17 10:22 Dose: 5 ml Promethazine HCl/Codeine (Phenergan/Codeine Syrup) 5 ml PO QID MARSHA Last Admin: 12/03/17 08:21 Dose: 5 ml Saccharomyces Boulardii (Florastor) 250 mg PO DAILY MARSHA Last Admin: 12/03/17 08:21 Dose: 250 mg Sodium Chloride (Flush - Normal Saline) 10 ml IVF Q12HR MARSHA Last Admin: 12/03/17 08:21 Dose: 10 ml Sodium Chloride (Flush - Normal Saline) 10 ml IVF PRN PRN PRN Reason: Saline Flush Sodium Chloride/Aloe Vera ([place] W/Aloe Gel) 0 gm EA NARE Q4H PRN PRN Reason: DRY NOSE Last Admin: 12/02/17 06:54 Dose: 1 drp Tramadol HCl (Ultram) 50 mg PO Q6H PRN PRN Reason: Pain
--- NOTE | 2017-12-03 12:56 | CT ---
BRAIN CT WITH AND WITHOUT CONTRAST: HISTORY: Lung cancer. Evaluate for intracranial metastases. COMPARISON: None. TECHNIQUE: Noncontrast and post contrast head CT is performed in the axial plane. FINDINGS: The calvarium is intact. Adequate aeration of the sinuses and mastoid air cells. No parenchymal hemorrhage. No extraaxial hematoma. No midline shift. Basilar cisterns are patent. Age appropriate brain volume. Cortical holland white matter differentiation is preserved. Ventricles and sulci are patent and symmetric. No pathologic enhancement of the brain parenchyma. IMPRESSION: No CT evidence of brain metastasis. MRI if clinically warranted and if there is still suspicion for possible brain metastases. POS: [facility]
[2017-12-03] MEDS ORDERED: Iopamidol 370 76% 100 ML VIAL ONE (14:56)
[2017-12-03] MEDS ORDERED: Milk Of Magnesia 30 ML UDCUP PO PRN (19:54)
[2017-12-04] MEDS: HYDROcodone/Acetaminophen 10/325 mg Tablet PO PRN (06:45)
[2017-12-04] MEDS: Albuterol Sulfate 1.25 MG/3 ML NEB NEB SCH ×2 (06:49→13:37)
[2017-12-04] MEDS: Phenergan/Codeine 10-6.25mg/5ml UDCUP PO SCH ×3 (10:06→18:13)
[2017-12-04] MEDS: Benzonatate 100 MG CAP PO PRN ×2 (10:06→13:36)
[2017-12-04] MEDS: Saccharomyces boulardii 250 MG CAP PO SCH (10:07)
[2017-12-04] MEDS ORDERED: Sodium Chloride 0.65% Nasal 44 ML BOT EA NARE PRN (13:48)
[2017-12-04] MEDS ORDERED: Loratadine 10 MG TAB PO PRN (13:49)
[2017-12-04] MEDS ORDERED: Oxymetazoline HCl 0.05% ( 15 ML ) NASAL SCH (14:30)
--- NOTE | 2017-12-04 15:02 | EKG ---
Test Reason : Blood Pressure : / mmHG Vent. Rate : 114 BPM Atrial Rate : 114 BPM P-R Int : 120 ms QRS Dur : 088 ms QT Int : 314 ms P-R-T Axes : 054 045 -56 degrees QTc Int : 432 ms Sinus tachycardia Cannot rule out Anterior infarct , age undetermined Abnormal ECG Confirmed by TONI AVILEZ [id number]), city editor LEE JEAN ([id number] on 12/04/2017 3:00:35 PM Referred By: Confirmed By:TONI AVILEZ
[2017-12-04 16:50] VITALS: BP 140/89; TEMP 97.6
== END 2017-12-04 19:25 | disposition home or self-care (01) | DRG 181 ==
LOC: ERS 10:01 → ERHOLD 12:47 → 2NO 18:58 → ONC 12-02 19:41
PROVIDERS: ADMIT Internal Medicine; ATTEND Internal Medicine
DX: C34.12 Malignant neoplasm of upper lobe, left bronchus or lung (principal); C77.2 Secondary and unspecified malignant neoplasm of intra-abdominal lymph nodes; J91.0 Malignant pleural effusion; C79.51 Secondary malignant neoplasm of bone; G73.1 Lambert-Eaton syndrome in neoplastic disease; J94.8 Other specified pleural conditions; E78.5 Hyperlipidemia, unspecified; I10 Essential (primary) hypertension; Z87.891 Personal history of nicotine dependence
CPT/HCPCS: 36415; 70470; 71045; 71275; 76700; 80048; 80053; 82553; 83605; 83880; 84484; 85025; 87040; 93005; 94640; 96361; 96374; 96375; A4216; G8978-GP-CJ; G8979-GP-CI; J2270; J2405

== ENCOUNTER 2017-12-09 16:10 | Inpatient (IN) | payer MEDICAID, SELFPAY ==
[2017-12-09 16:40] LABS: #Lymphocytes 1.8 thou/uL (1.20-3.40); #Neutrophils 11.6 thou/uL (1.40-6.50); %Basophils 0.2 % (0.0-1.0); %Eosinophils 0.1 % (0.0-10.0); %Lymphocytes 12.2 % (21.0-51.0); %Monocytes 6.8 % (0.0-10.0); %Neutrophils 80.6 % (42.0-75.0); Hemoglobin 10.9 g/dL (14.0-18.0); Mean Corpuscular HGB CONC 31.5 g/dL (32.0-36.0); Mean Corpuscular Hemoglobin 24.6 pg (27.0-31.0); Mean Corpuscular Volume 78.1 fl (80.0-94.0); Mean Platelet Volume 6.3 fL (7.4-10.4); Platelet Count 625 thou/uL (130-400); RBC Distribution Width 19.1 % (11.5-14.5); Red Blood Cell (RBC) Count 4.43 mill/uL (4.70-6.10); White Blood Cell (WBC) Count 14.3 thou/uL (4.8-10.8)
[2017-12-09 17:01] LABS: Anion Gap 15 mmol/L (10-20); BUN (Urea Nitrogen) 16 mg/dL (8.4-25.7); Calc. Creatinine Clearance 0 mL/min (70-130); Calcium 11.7 mg/dL (7.8-10.44); Carbon Dioxide 27 mmol/L (22-29); Chloride 99 mmol/L (98-107); Estimated GFR-MDRD Greater than 90; Glucose 93 mg/dL (70-105); Potassium 4.2 mmol/L (3.5-5.1); Sodium 137 mmol/L (136-145)
[2017-12-09 17:03] LABS: Lactate 1.24 mmol/L (0.50-2.20)
--- NOTE | 2017-12-09 17:45 | RAD ---
CHEST ONE VIEW: 12/09/17 HISTORY: Lethargy. Decreased appetite. Stage IV lung cancer with metastases. COMPARISON: 12/01/17. FINDINGS: Persistent opacification of the left hemithorax. Persistent decreased volume of the left hemithorax. Stable aeration of the right lung. Patchy reticulonodular opacities have developed which may be due t o infiltrate. No pneumothorax. Stable left sided pneumothorax. Stable catheter projects over the left lung base. IMPRESSION: 1. Stable left sided pneumothorax. 2. Interval development of reticulonodular opacities in the right hemithorax which may represent infiltrate. POS: [facility]
[2017-12-10 10:56] VITALS: BMI 22.6
[2017-12-10] MEDS ORDERED: Ondansetron ODT 4 MG TAB PO PRN (11:43)
[2017-12-10] MEDS ORDERED: Loperamide HCl 2 MG CAP PO PRN (11:43)
[2017-12-10] MEDS ORDERED: Ondansetron HCl/PF 4 MG/2 ML Vial IVP PRN (11:43)
[2017-12-10] MEDS ORDERED: Sodium Chloride 0.65% Nasal 44 ML BOT EA NARE PRN (11:43)
[2017-12-10] MEDS ORDERED: Loratadine 10 MG TAB PO PRN (11:43)
[2017-12-10] MEDS ORDERED: Chloraseptic Spray 180 ml Bottle PO PRN (11:43)
[2017-12-10] MEDS ORDERED: Zolpidem Tartrate 5 MG TAB PO PRN (11:43)
[2017-12-10] MEDS ORDERED: Labetalol HCl 100 MG/20 ML VIAL SLOW IVP PRN (11:43)
[2017-12-10] MEDS ORDERED: Artificial Tears 18 DROP/0.9 ML EA EYE PRN (11:43)
[2017-12-10] MEDS ORDERED: Eucerin (Mineral Oil/Petrolatum,White) 30 gm Jar TOP PRN (11:43)
[2017-12-10] MEDS ORDERED: Acetaminophen 325 MG TAB PO PRN (11:43)
[2017-12-10] MEDS ORDERED: Senokot 8.6 MG TAB PO PRN (11:43)
[2017-12-10] MEDS ORDERED: cloNIDine 0.1 MG TAB PO PRN (11:43)
[2017-12-10] MEDS ORDERED: Milk Of Magnesia 30 ML UDCUP PO PRN (11:43)
[2017-12-10] MEDS ORDERED: Mag-Al 1200 mg/1200 mg/30 ML UDCUP PO PRN (11:43)
[2017-12-10] MEDS ORDERED: Diabetic Tussin 200 MG/10 ML UDCUP PO PRN (11:43)
[2017-12-10] MEDS ORDERED: HYDROcodone/Acetaminophen 5/325 mg Tablet PO PRN (11:43)
[2017-12-10] MEDS ORDERED: Sodium Chloride 0.9% 1,000 ML IV SCH (11:45)
[2017-12-10 13:01] LABS: #Lymphocytes 1.7 thou/uL (1.20-3.40); #Monocytes 1.1 thou/uL (0.11-0.59); #Neutrophils 10.9 thou/uL (1.40-6.50); %Basophils 0.1 % (0.0-1.0); %Eosinophils 0.2 % (0.0-10.0); %Lymphocytes 12.2 % (21.0-51.0); %Monocytes 7.9 % (0.0-10.0); %Neutrophils 79.7 % (42.0-75.0); Hemoglobin 9.3 g/dL (14.0-18.0); Mean Corpuscular HGB CONC 31.2 g/dL (32.0-36.0); Mean Corpuscular Hemoglobin 24.5 pg (27.0-31.0); Mean Corpuscular Volume 78.8 fl (80.0-94.0); Mean Platelet Volume 6.2 fL (7.4-10.4); Platelet Count 570 thou/uL (130-400); RBC Distribution Width 18.6 % (11.5-14.5); White Blood Cell (WBC) Count 13.7 thou/uL (4.8-10.8)
[2017-12-10 13:08] LABS: ALT (SGPT) 12 U/L (8-55); AST (SGOT) 23 U/L (5-34); Albumin 3.1 g/dL (3.5-5.0); Alkaline Phosphatase 146 U/L (40-150); Anion Gap 14 mmol/L (10-20); BUN (Urea Nitrogen) 18 mg/dL (8.4-25.7); Bilirubin, Total 0.2 mg/dL (0.2-1.2); Calc. Creatinine Clearance 133 mL/min (70-130); Calcium 11.3 mg/dL (7.8-10.44); Carbon Dioxide 26 mmol/L (22-29); Chloride 101 mmol/L (98-107); Estimated GFR-MDRD Greater than 90; Globulin 4.6 g/dL (2.4-3.5); Glucose 107 mg/dL (70-105); Potassium 4.4 mmol/L (3.5-5.1); Protein, Total 7.7 g/dL (6.0-8.3); Sodium 137 mmol/L (136-145)
--- NOTE | 2017-12-10 13:10 | HP ---
PRIMARY CARE PHYSICIAN: Dr. Maxine Gaytan. PRIMARY ONCOLOGIST: Dr. Snyder. REASON FOR ADMISSION: Hypercalcemia, encephalopathy, pneumonia, generalized weakness. HISTORY OF PRESENT ILLNESS: A 57-year-old male who has diagnosis of metastatic squamous cell carcino ma of lung who was recently admitted in our hospital. At that time, for malignant pleural effusion, the patient had PleurX catheter placed. Patient came to emergency ro om yesterday evening for generalized weakness. He had routine blood test, which showed hypercalcemia , leukocytosis. The patient appeared clinically dehydrated and he was offered admission, but as kasi ent was feeling better after 2 liters of IV fluid, the patient decided to go home. The patient's las t chemotherapy was about 3 weeks ago and today the patient is supposed to get chemotherapy and that i s why they went to see Dr. Snyder, but patient appeared very weak, dehydrated and altered and that is why the patient was admitted to the hospital from clinic. The patient is lethargic for the last couple of days, the patient has very poor appetite. He is losi ng weight day by day basis. Since diagnosis of lung cancer, per , the patient lost 60 pounds. T he patient has difficulty ambulation, because of generalized weakness and tiredness. The patient is using 3 liter oxygen at home. The patient is also using breathing treatment as needed basis. The pa tient is feeling shortness of breath, which is chronic for him and he also has chronic cough and late ly cough with the sputum increased last week. He denies any upper respiratory infection. He denies any flu-like symptoms. He denies any UTI symptoms. He denies any constipation, diarrhea, melena or hematochezia. Yesterday, they attempted to drain fluid from the lung, but there was no output. The patient is only drinking water without any significant amount of food. After admission to hospital, we tried to do IV access, but with the patient, IV access was not possib le given he has significant dehydration and that is why midline access is tried. The patient is not able to participate in history and physical because of altered mental status, but his is present at bedside who provided most of the history. Yesterday, the patient had blood culture done. Yesterday, the patient was given IV fluid and he was prescribed levofloxacin. REVIEW OF SYSTEMS: The following complete review of systems was negative, unless otherwise mentioned in the HPI or below: Constitutional: Weight loss or gain, ability to conduct usual activities. Skin: Rash, itching. Eyes: Double vision, pain. ENT/Mouth: Nose bleeding, neck stiffness, pain, tenderness. Cardiovascular: Palpitations, dyspnea on exertion, orthopnea. Respiratory: Shortness of breath, wheezing, cough, hemoptysis, fever or night sweats. Gastrointestinal: Poor appetite, abdominal pain, heartburn, nausea, vomiting, constipation, or diarr hea. Genitourinary: Urgency, frequency, dysuria, nocturia. Musculoskeletal: Pain, swelling. Neurologic/Psychiatric: Anxiety, depression. Allergy/Immunologic: Skin rash, bleeding tendency. Review of systems mentioned above is not reliable, because the patient is also not coherent and not p articipating all the time. ALLERGIES: The patient is allergic to PACLITAXEL. CURRENT HOME MEDICATIONS: Based on our hospital record, the patient is on following medications, Alb uterol sulfate nebulization q.8 hourly p.r.n., Xanax 0.25 mg p.o. at bedtime, Tessalon 100 mg p.o. t. i.d. p.r.n., ibuprofen 600 mg q.4 hourly p.r.n., Lidoderm patch q.12 hourly, Florastor 250 mg p.o. da re[place], [place] nasal spray as needed, tramadol 50 mg q.6 hourly p.r.n. PAST MEDICAL HISTORY: Metastatic squamous cell carcinoma of left lung with malignant left-sided pleu ral effusion. PAST PSYCHIATRIC HISTORY: Anxiety disorder. PAST SURGICAL HISTORY: Bronchoscopy, mediastinoscopy and lymph node biopsy, PleurX catheter placemen t during previous admission. SOCIAL HISTORY: Patient is . He lives with his . No history of tobacco, alcohol or illi cit drug abuse. FAMILY HISTORY: No strong family history of premature coronary artery disease, stroke or cancer. EMERGENCY ROOM COURSE: Patient was given yesterday 2 liters of fluid and Levaquin was prescribed. T he patient directly came from clinic. PHYSICAL EXAMINATION: VITAL SIGNS: Today, temperature 97.8, pulse 115, respiratory rate 28, saturation 93% on room air, bl ood pressure 171/92, weight 167 pound. GENERAL: Patient is currently lethargic, dehydrated, tachycardic, hypertensive, appears incoherent. HEAD: Normocephalic, atraumatic. EYES: Pupils round, reactive to light. Extraocular muscle intact. ENT: Dry mucous membrane, no oral lesion, no pharyngeal erythema, no exudate. NECK: Supple, no JVD, no thyromegaly, no carotid bruit. LUNGS: Air entry reduced on the left side. PleurX catheter in place. Right base, few end expirator y wheezing and coarse breath sound noted. CARDIAC: S1, S2 regular, tachycardia, no murmur, no gallop, no rub. ABDOMEN: Soft, bowel sounds present, nontender, nondistended. No organomegaly, no mass, no suprapub ic tenderness. BACK: Unremarkable, no CVA tenderness. EXTREMITIES: Upper extremity, passive movement of all joints are normal. Lower extremity, no edema . Good peripheral pulsation. SKIN: No skin rash, pale skin. HEMATOLOGICAL: No lymphadenopathy. PSYCHIATRIC: Flat affect. NEUROLOGIC: The patient is moving all 4 limbs. Grossly nonfocal examination. Detailed neurological examination is not possible. SIGNIFICANT LABORATORY DATA AND IMAGING: EKG showing sinus tachycardia, which was done yesterday. C hest x-ray showing reticulonodular opacity in the right hemithorax, which may represent infiltrate, s table left-sided pneumothorax and left-sided opacity. CBC: WBC 14.3, hemoglobin 10.9, MCV 78.1, andrew telets 625. BMP: Sodium 137, potassium 4.2, chloride 99, carbon dioxide 27, anion gap 15, BUN 16, c reatinine 0.61, glucose 93, calcium 11.7, lactic acid 1.5. Blood culture is negative. ASSESSMENT AND PLAN: 1. Acute encephalopathy, likely due to metabolic etiology from hypercalcemia as well as underlying i nfection from pneumonia. Patient is also clinically significantly appeared dehydrated. This patient already had CT brain recently, which was not showing any metastasis. He is moving all 4 limbs. Cur rent altered mental status is likely due to dehydration, pneumonia and hypercalcemia. We will treat underlying problem and monitor while in hospital. 2. Right lower lobe pneumonia. This patient has new infiltration with a reticulonodular density in the right hemithorax, most likely this is pneumonia, underlying metastasis to lung cannot be entirely excluded. He has leukocytosis. He has increasing cough. We will empirically treat with broad spec trum antibiotic therapy with cefepime 2 gram IV q.12 hourly and Levaquin 750 mg IV daily, DuoNeb ther apy q.6 hourly p.r.n. basis. 3. Hypercalcemia, suspecting from malignancy/dehydration. Patient will be given IV fluid at NS 120 mL per hour and we will repeat labs today and tomorrow. 4. Dehydration, likely due to poor p.o. intake. The patient is receiving IV fluid and we will monit or clinically. 5. Protein calorie malnutrition, moderate and failure to thrive in adult. We will try to give him n utritional supplement with Ensure t.i.d. and we will try to add Megace appetite stimulant and we will also consider multivitamin therapy. 6. Anemia microcytic, ferrous sulfate 325 mg p.o. daily will be given. 7. Metastatic squamous cell carcinoma of lung with a left-sided malignant pleural effusion with Pleu rX catheter. The patient was planned for chemotherapy today. We will consult Oncology. We will als o consult Palliative Care. 8. Deep venous thrombosis prophylaxis. Lovenox 40 mg subcu daily. 9. Gastrointestinal prophylaxis. Pepcid 20 mg p.o. b.i.d. 10. Code status. I spoke with the patient's and patient's confirmed DNR status. She is t he surrogate decision maker for her . Disposition plan based on clinical course. We are expecting the patient's stay in hospital more than 2 midnights. Plan of care discussed with the patient's . We are also trying to get CT chest, a bdomen, and pelvis for further evaluation.
[2017-12-10] MEDS: Sodium Chloride 0.9% 1,000 ML IV SCH ×2 (13:14→22:00)
[2017-12-10] MEDS: Morphine 4 MG/ML VIAL SLOW IVP PRN ×2 (13:15→17:24)
[2017-12-10] MEDS: Cefepime 2 GM, Syringe 2.5 ML in Sodium Chloride 0.9% 10 ML SLOW IVP SCH (13:22)
--- NOTE | 2017-12-10 18:07 | PRG ---
DATE OF SERVICE: 12/10/2017 SUBJECTIVE: Mr. Otoole is back in the hospital and is extremely weak. His says he has only sat u p once in the last 2 weeks on his own and he was delusional when he sat up yesterday. OBJECTIVE: VITAL SIGNS: He is afebrile, heart rate is currently 99, respiratory rate 24, oximetry is 97% on jon m air, blood pressure 156/99. He is clearly failing therapy for a very aggressive non-small cell lung cancer. Inpatient hospice is appropriate as I have explained to her. He is supportive of this. The family h as been notified of his pre-terminal condition.
[2017-12-10] MEDS: hydrALAZINE 20 MG/ML VIAL SLOW IVP PRN (19:35)
[2017-12-10] MEDS ORDERED: Cefepime 2 GM in Sodium Chloride 0.9% 100 ML IVPB SCH (21:00)
[2017-12-10] MEDS: Famotidine 20 MG TAB PO SCH (21:07)
[2017-12-10] MEDS: Megestrol Acetate 40 MG TAB PO SCH (21:08)
[2017-12-10 21:19] LABS: Bilirubin Small (Negative); Blood, Urine Negative (Negative); Clarity CLEAR (Clear); Glucose, Urine (Dipstick) Negative (Negative); Leukocyte Negative (Negative); Nitrite Negative (Negative); Protein, Urine (Dipstick) 30 mg/dL (Neg-Trace); Specific Gravity, Urine 1.034 (1.002-1.036); Urobilinogen 0.2 mg/dL (0.2-1.0)
[2017-12-10 21:21] LABS: Bacteria/HPF None Seen HPF (None Seen); Hyaline Casts/LPF 0-3 HYALINE CAST LPF (0-3 Hyaline); RBC/HPF 0-3 HPF (0-3); Squamous Epithelial 0-3 HPF (0-3); WBC/HPF 0-3 HPF (0-3)
[2017-12-10] MEDS: ALPRAZolam 0.25 MG TAB PO PRN (23:20)
[2017-12-11] MEDS: Cefepime 2 GM, Syringe 2.5 ML in Sodium Chloride 0.9% 10 ML SLOW IVP SCH (01:07)
[2017-12-11] MEDS: Morphine 4 MG/ML VIAL SLOW IVP PRN ×5 (03:55→17:31)
[2017-12-11] MEDS: hydrALAZINE 20 MG/ML VIAL SLOW IVP PRN ×2 (03:58→11:03)
[2017-12-11] MEDS: ALPRAZolam 0.25 MG TAB PO PRN (04:40)
[2017-12-11] MEDS: Sodium Chloride 0.9% 1,000 ML IV SCH (06:07)
[2017-12-11] MEDS ORDERED: Ferrous Sulfate 325 MG TAB PO SCH (08:00)
--- NOTE | 2017-12-11 08:59 | PDOC.PN ---
- Subjective Encounter Start Date: 12/11/17 Encounter Start Time: 07:00 -: old records requested/rev Patient seen and examined. No new complaints. No overnight events - Objective Resuscitation Status: Resuscitation Status DNR:Do Not Resuscitate MAR Reviewed: Yes Vital Signs & Weight: Vital Signs (12 hours) Temp Pulse Resp BP BP BP Pulse Ox 12/11/17 07:05 97.5 F L 112 H 36 H 147/94 H 99 12/11/17 04:00 97.5 F L 110 H 16 150/105 H 97 12/11/17 03:58 110 H 150/105 H 12/10/17 23:19 97.8 F 111 H 20 138/91 H 99 Weight Weight 167 lb 5 oz I&O: 12/10/17 12/11/17 12/12/17 06:59 06:59 06:59 Intake Total 3615.5 Output Total 1200 Balance 2415.5 Result Diagrams: 12/10/17 12:28 12/10/17 12:28 Phys Exam - Physical Examination Constitutional: NAD HEENT: PERRLA, moist MMs, sclera anicteric Neck: no JVD, supple Respiratory: no wheezing, no rhonchi pleurex catheter on left side, air entry reduced on left, few wheeze right base Cardiovascular: RRR, no significant murmur, no rub Gastrointestinal: soft, non-tender, no distention, positive bowel sounds Musculoskeletal: no edema, pulses present Neurological: moves all 4 limbs confused Psychiatric: normal affect Skin: no rash, normal turgor Dx/Plan (1) Dehydration Code(s): E86.0 - DEHYDRATION Status: Acute (2) Encephalopathy acute Code(s): G93.40 - ENCEPHALOPATHY, UNSPECIFIED Status: Acute (3) Hypercalcemia of malignancy Code(s): E83.52 - HYPERCALCEMIA Status: Acute Comment: (4) PNA (pneumonia) Code(s): J18.9 - PNEUMONIA, UNSPECIFIED ORGANISM Status: Acute (5) Sepsis Code(s): A41.9 - SEPSIS, UNSPECIFIED ORGANISM Status: Acute Comment: d/t PNA (6) Anemia of chronic disease Code(s): D63.8 - ANEMIA IN OTHER CHRONIC DISEASES CLASSIFIED ELSEWHERE Status : Chronic (7) Anxiety and depression Code(s): F41.8 - OTHER SPECIFIED ANXIETY DISORDERS Status: Chronic (8) Diastolic dysfunction Code(s): I51.9 - HEART DISEASE, UNSPECIFIED Status: Chronic (9) Dyspnea Code(s): R06.00 - DYSPNEA, UNSPECIFIED Status: Chronic Qualifiers: (10) Metastatic squamous cell carcinoma Code(s): C79.9 - SECONDARY MALIGNANT NEOPLASM OF UNSPECIFIED SITE; C80.1 - MALIGNANT (PRIMARY) NEOPLASM, UNSPECIFIED Status: Chronic Comment: primary lung cancer, with bone and lymph node mets (11) Pleural effusion, left Code(s): J90 - PLEURAL EFFUSION, NOT ELSEWHERE CLASSIFIED Status: Chronic Comment: ?malignant.S/P Thoracentesis.Cx negative so far.Path pending (12) Pneumothorax, left Code(s): J93.9 - PNEUMOTHORAX, UNSPECIFIED Status: Chronic - Plan cont current plan of care, plan discussed w/ family, continue antibiotics, social worker school, respiratory therapy * prognosis is very poor * out of hospital DNR paper work done. * will need comfort care with hospice if agree * medication reviewed as below * symptomatic treatment * continue cefepime and levaquin empirically for now Review of Systems - Review of Systems Other: not reliable due to his level of cognitive status - Medications/Allergies Allergies/Adverse Reactions: Allergies Allergy/AdvReac Type Severity Reaction Status Date / Time paclitaxel AdvReac Intermediate Short of Verified 12/10/17 22:33 Breath Medications: Current Medications Acetaminophen (Tylenol) 650 mg PO Q4H PRN PRN Reason: Headache/Fever or Pain Hydrocodone Bitart/Acetaminophen ([place] 5/325) 1 tab PO Q4H PRN PRN Reason: Moderate Pain (4-6) Last Admin: 12/10/17 21:05 Dose: 1 tab Al Hydroxide/Mg Hydroxide (Maalox) 30 ml PO Q6H PRN PRN Reason: Heartburn or Indigestion Albuterol/Ipratropium (Duoneb) 3 ml NEB [id number] PRN PRN Reason: SOB &/or Wheezing Alprazolam (Xanax) 0.25 mg PO HSPRN PRN PRN Reason: Anxiety Last Admin: 12/11/17 04:40 Dose: 0.25 mg Artificial Tears (Tears Naturale) 0 drop EA EYE PRN PRN PRN Reason: Dry Eyes Clonidine (Catapres) 0.1 mg PO Q4H PRN PRN Reason: Systolic BP > 180 Cyanocobalamin (Vitamin B-12) 1,000 mcg PO DAILY [facility] Enoxaparin Sodium (Lovenox) 40 mg SC 0900 [facility] Famotidine (Pepcid) 20 mg PO BID [facility] Last Admin: 12/10/17 21:07 Dose: 20 mg Ferrous Sulfate (Feosol) 325 mg PO QAM-WM [facility] Folic Acid (Folvite) 1 mg PO DAILY [facility] Guaifenesin (Robitussin Sf) 200 mg PO Q4H PRN PRN Reason: Cough Hydralazine HCl (Apresoline) 10 mg SLOW IVP Q4H PRN PRN Reason: Systolic BP > 180 Last Admin: 12/11/17 03:58 Dose: 10 mg Levofloxacin 750 mg/ Device 150 mls @ 100 mls/hr IVPB Q24HR [facility] Last Admin: 12/10/17 14:30 Dose: 150 mls Sodium Chloride (Normal Saline 0.9%) 1,000 mls @ 120 mls/hr IV .Q8H20M [facility] Last Admin: 12/11/17 06:07 Dose: 1,000 mls Cefepime HCl 2 gm/ Syringe 2.5 (ml/ Sodium Chloride) 12.5 mls @ 150 mls/hr SLOW IVP 0100,1300 [facility] Last Admin: 12/11/17 01:07 Dose: 12.5 mls Iron/Minerals/Multivitamins (Theragran M) 1 tab PO DAILY [facility] Labetalol HCl (Normodyne) 10 mg SLOW IVP Q4H PRN PRN Reason: Systolic BP > 180 Loperamide HCl (Imodium) 2 mg PO PRN PRN PRN Reason: Diarrhea/Loose Stools Loratadine (Claritin) 10 mg PO DAILYPRN PRN PRN Reason: Sinus Symptoms Magnesium Hydroxide (Milk Of Magnesium) 30 ml PO DAILYPRN PRN PRN Reason: Constipation Megestrol Acetate (Megace) 40 mg PO BID [facility] Last Admin: 12/10/17 21:08 Dose: 40 mg Mineral Oil/White Petrolatum (Eucerin Cream) 0 gm TOP BIDPRN PRN PRN Reason: Dry Skin Morphine Sulfate (Morphine) 2 mg SLOW IVP Q3H PRN PRN Reason: Severe Pain (7-10) Last Admin: 12/11/17 08:26 Dose: 2 mg Ondansetron HCl (Zofran Odt) 4 mg PO Q6H PRN PRN Reason: Nausea/Vomiting Ondansetron HCl (Zofran) 4 mg IVP Q6H PRN PRN Reason: Nausea/Vomiting Phenol (Chloraseptic [place] 180 Ml Bot) 0 ml PO PRN PRN PRN Reason: Sore Throat Senna (Senokot) 2 tab PO HSPRN PRN PRN Reason: Constipation Sodium Chloride ([place] Nasal [place] 0.65%) 0 ml EA NARE QIDPRN PRN PRN Reason: Nasal Congestion Zolpidem Tartrate (Ambien) 5 mg PO HSPRN PRN PRN Reason: Insomnia
[2017-12-11] MEDS ORDERED: Multivitamin W/ Minerals 1 TAB PO SCH (09:00)
[2017-12-11] MEDS ORDERED: Enoxaparin Sodium 40 MG/0.4 ML SYRINGE SC SCH (09:00)
[2017-12-11] MEDS ORDERED: Folic Acid 1 MG TAB PO SCH (09:00)
[2017-12-11] MEDS ORDERED: Cyanocobalamin (Vitamin B-12) 1,000 MCG TAB PO SCH (09:00)
[2017-12-11] MEDS ORDERED: Prevnar 13-Val Conj/PF 0.5 ML SYRINGE IM ONE (09:00)
[2017-12-11] MEDS ORDERED: Zoledronic Acid 4 MG in Sodium Chloride 0.9% 100 ML IVPB SCH (09:15)
--- NOTE | 2017-12-11 10:23 | PRG ---
DATE OF SERVICE: 12/11/2017 SUBJECTIVE: Mr. Beatrice Otoole is still encephalopathic. His calcium is elevated, but not as I would e xpect to cause an encephalopathy. In any event, we will go ahead and treat this. He really does not need all these routine medications that have been given since we are transitioning him to hospice care. I met with the again and the 's sister and we discussed all this to t he 's sister who has actually lost her several years back. He is clearly near the end, it may be that he is just fatigued and tired and that is why he is enceph alopathic, but at this point in time, the focus will be comfort care. Consultation has been placed f or inpatient hospice. I met with the family and answered all their questions. There is no reason to do a CT of his chest, abdomen and pelvis. This has been canceled.
--- NOTE | 2017-12-11 10:28 | DIS ---
DATE OF ADMISSION: 12/10/2017 DATE OF DISCHARGE: 12/11/2017 DISCHARGE DISPOSITION: Inpatient hospice for comfort care. PRIMARY DISCHARGE DIAGNOSES: 1. Acute metabolic encephalopathy. 2. Hypercalcemia of malignancy. 3. Severe dehydration. 4. Suspected pneumonia (right-sided ground glass opacity). 4. Suspected sepsis. SECONDARY DISCHARGE DIAGNOSES: Advanced metastatic squamous cell carcinoma, left-sided pleural effus ion, left-sided pneumothorax, chronic dyspnea, diastolic dysfunction, anxiety and depression, anemia of chronic disease. PRIMARY PROCEDURE/OPERATION: None. RADIOLOGICAL INVESTIGATION: Chest x-ray showed stable left-sided pneumothorax, reticulonodular opaci ty in the right hemithorax. SIGNIFICANT LABS: WBC 13.7, hemoglobin 9.3, platelet 570. Sodium 137, calcium 11.3. Electrolytes n ormal. LFT normal. Urinalysis unremarkable. Blood culture negative. DISCHARGE MEDICATIONS: The patient will be discharged to inpatient hospice facility when arranged fo r comfort care. MEDICATIONS: The patient is on the following medications; albuterol nebulization q.8h. p.r.n., [place] astor 250 mg p.o. daily, Xanax 0.25 mg p.o. at bedtime p.r.n., Tessalon 100 mg p.o. t.i.d. p.r.n., Li doderm patch q.12h., [place] nasal spray as needed, tramadol 50 mg q.6h. p.r.n. The patient will get final discharge medication at Hospice facility based on hospice team. CONTRAINDICATIONS: None. CODE STATUS: DNR. INPATIENT CONSULTANTS: Dr. Ferguson saw this patient. Oncology was consulted while in hospital. TEST RESULTS PENDING ON DISCHARGE: None. ALLERGIES: PACLITAXEL. DISCHARGE PLAN: Post hospital, the patient is planned for discharge to inpatient hospice facility fo r comfort care. HOSPITAL COURSE: A 57-year-old male with the above-mentioned medical problems who visited emergency room on 12/09/2017. The patient was having very poor appetite. He was not eating or drinking signif icantly and he was getting confused. He was brought to ER, at that time he was suspected for right-s ided reticular nodular opacity which suspected for pneumonia and patient was given Levaquin therapy. The patient was given IV fluid for hypercalcemia and offered admission, but as patient felt a little bit better the patient went home and next day the patient had a visit with Dr. Snyder for verónica roldan, but the patient appeared more weak, dehydrated and confused and that is why he was directly adm itted to the hospital. We started antibiotic therapy for suspected pneumonia. We started IV fluid a nd respiratory therapy. Palliative Care Team was consulted and the patient's goal of care established. The patient's ma de a DNR and patient's wanted to make him comfortable. Dr. Ferguson saw this patient and he also a greed with hospice care. At this point, I spoke with the patient's and updated about plan of ca re. We discontinued antibiotic therapy. The patient's prognosis is very poor. He is still confused and his life expectancy is very little. With help of telephonic case manager and Palliative Care we are trying to arrange inpatient hospice facility for comfort care. Today, the patient has received zoledronic acid 1 dose as well as patient is getting IV fluid and com fort care treatment while in hospital. The patient is seen and examined at bedside today. Please see my progress note from today for furthe r details.
[2017-12-11] MEDS: Megestrol Acetate 40 MG TAB PO SCH (10:43)
[2017-12-11] MEDS: Famotidine 20 MG TAB PO SCH (10:43)
[2017-12-11 16:14] VITALS: BP 142/87; TEMP 97.6
== END 2017-12-11 18:03 | disposition home or self-care (01) | DRG 871 ==
LOC: ERS 16:10 → ONC 12-10 10:43
PROVIDERS: ADMIT Family Medicine; ATTEND Family Medicine
DX: A41.9 Sepsis, unspecified organism (principal); J18.9 Pneumonia, unspecified organism; G93.41 Metabolic encephalopathy; J91.0 Malignant pleural effusion; E44.0 Moderate protein-calorie malnutrition; C77.9 Secondary and unspecified malignant neoplasm of lymph node, unspecified; J93.81 Chronic pneumothorax; C34.91 Malignant neoplasm of unspecified part of right bronchus or lung; C79.51 Secondary malignant neoplasm of bone; E83.52 Hypercalcemia; E86.0 Dehydration; Z66 Do not resuscitate; D50.9 Iron deficiency anemia, unspecified; R62.7 Adult failure to thrive; Z51.5 Encounter for palliative care; D63.8 Anemia in other chronic diseases classified elsewhere; F32.9 Major depressive disorder, single episode, unspecified; F41.9 Anxiety disorder, unspecified; Z87.891 Personal history of nicotine dependence; E87.8 Other disorders of electrolyte and fluid balance, not elsewhere classified
CPT/HCPCS: 36415; 71045; 80048; 80053; 81001; 83605; 85025; 87040; 93005; 96360; 96361; J0360; J0692; J1956; J2270; J3489; J7050; S0179